=== PATIENT | female | born 1965 | race Caucasian/White ===

== ENCOUNTER 2018-04-22 15:57 | Outpatient (REF) | payer OTHER, SELFPAY ==
--- NOTE | 2018-04-22 14:30 | PAPFT_PTH ---
PATIENT: Kassandra Montalvo LOC: [facility] U#:[id number] AGE/SX: 52/F ROOM: RE04/22/[address]: Nereida Sharif MD, DC : 1965 BED: DIS: 04/22/2018 SPEC #: [id number] RECD: 04/22/18 18:19 STATUS: SOFY REQ #: [id number] ELVIA: 04/22/18 14:[address]: Nereida Sharif DEPT: [facility] [place] Cytology RECD BY: Judy Gannon Tissues: 1 - CX/ENDOCX FOR PAP SMEARS Procedures: PAP THIN PREP/UVM Screening HPV DNA PROBE Comments: [id number]
== END 2018-04-22 16:17 ==
LOC: LBN 15:57
PROVIDERS: PCP Family Medicine; Visit Provider Family Medicine
DX: Z12.4 Encounter for screening for malignant neoplasm of cervix (principal); Z11.51 Encounter for screening for human papillomavirus (HPV)
CPT/HCPCS: 88142; 87624

== ENCOUNTER 2018-05-01 00:25 | Outpatient (CLI) | payer OTHER, SELFPAY ==
--- NOTE | 2018-05-01 07:30 | DI.MAMMO_ITS ---
SYMPTOM/DIAGNOSIS: SCREENING, Z12.31 MAMMOGRAMS: Mammograms were interpreted according to the usual protocol including computer analysis with CAD system, tomosynthesis and C view imaging. Comparison is made with exams from 1369-5718. The breasts are composed of extremely dense fibroglandular tissue, breast density, Category D. On the tomographic images in the CC projection, there is a question of some architectural distortion seen in the posterior central tissue. No definite corresponding abnormality is seen on the MLO view. There is a stable area of nodularity seen inferiorly. The left breast shows some stable areas of nodularity. No suspicious calcifications are seen in either breast. IMPRESSION: Right breast, category 2, negative mammogram with benign findings. Left breast, category 0. Spot compression view with tomography as well as ultrasound is recommended for further evaluation of questionable area of architectural distortion. [facility]SA ASSESSMENT OF FINDINGS: Incomplete: Needs additional imaging evaluation. Category 0. Patient will receive a letter notifying them of these results. BI-RADS category D. The breasts are extremely dense, which lowers the sensitivity of mammography.
[2018-05-01 08:23] LABS: ALT 77 U/L (12-78); AST 37 U/L (15-37); Albumin 3.6 g/dL (3.4-5.0); Alkaline Phosphatase 113 U/L (46-116); Anion Gap 6.3 mmol/L (3-11); BUN 19 mg/dL (7-18); Bilirubin, Total 0.3 mg/dL (0.2-1.0); CO2 32.7 mmol/L (21.0-32.0); CREATININE 0.68 mg/dL (0.55-1.02); Calcium 9.2 mg/dL (8.5-10.1); Chloride 101 mmol/L (98-107); Cholesterol 244 mg/dL (50-200); Glucose 99 mg/dL (70-100); HDL Cholesterol 69 mg/dL (40-60); LDL CHOLESTEROL 155 mg/dL (<100); Potassium 4.4 mmol/L (3.5-5.1); Sodium 140 mmol/L (136-145); Total Protein 7.1 g/dL (6.4-8.2); Triglyceride 71 mg/dL (30-150)
== END 2018-05-01 00:45 ==
PROVIDERS: PCP Family Medicine; Visit Provider Family Medicine
DX: Z12.31 Encounter for screening mammogram for malignant neoplasm of breast (principal); R92.8 Other abnormal and inconclusive findings on diagnostic imaging of breast; I10 Essential (primary) hypertension; R51 Headache; Z00.00 Encounter for general adult medical examination without abnormal findings
CPT/HCPCS: 36415; 77063; 77067; 80053; 80061; 83721

== ENCOUNTER 2018-05-15 00:25 | Outpatient (CLI) | payer OTHER, SELFPAY ==
--- NOTE | 2018-05-15 14:52 | DI.COMBO_ITS ---
SYMPTOMS/DIAGNOSIS: F/U ABNORMAL MAMMO, ? ARCHITECTURAL DISTORTION ADDITIONAL VIEWS OF THE LEFT BREAST AND A LEFT BREAST ULTRASOUND: Additional views of the left breast fail to show a persistent discrete mass. Left breast ultrasound was performed. The upper outer and lower quadrants were evaluated sonographically. No suspicious cystic or solid masses are seen. There are several cysts scattered throughout the left breast, the largest measures 0.9 x 1.1 x 0.7 cm. No solid masses are seen. IMPRESSION: No definite evidence for malignancy. A six-month follow-up left breast mammogram is requested for reevaluation. Category 3. Breast density D. The findings were discussed with the patient on the date of the examination. [facility] ASSESSMENT OF FINDINGS: Probably benign. Six month follow-up recommended. Category 3. Patient will receive a letter notifying them of these results. BI-RADS category D. The breasts are extremely dense, which lowers the sensitivity of mammography.
== END 2018-05-15 00:45 ==
PROVIDERS: PCP Family Medicine; Visit Provider Family Medicine
DX: Z12.31 Encounter for screening mammogram for malignant neoplasm of breast (principal); R92.8 Other abnormal and inconclusive findings on diagnostic imaging of breast; N60.12 Diffuse cystic mastopathy of left breast
CPT/HCPCS: 76642; 77063; 77067

== ENCOUNTER 2018-07-22 06:08 | Day surgery (SDC) | payer OTHER, SELFPAY ==
[2018-07-22 06:20] VITALS: BP 121/73; PULSE 77; RESP 16; TEMP 35.1; O2SAT 100
--- NOTE | 2018-07-22 06:33 | HPE_ITS ---
Date of service: 07/22/18 Time of Service: 07:30 Assessment and Plan (1) Encounter for screening colonoscopy: Current visit: No Status: Acute P\\ Colonoscopy under sedation The patient is here for Colonoscopy pre-op. Her last screening was over 20 years ago and was unremarkable. She has no family history of colon cancer. She has bowel habit changes to include intermittent, bright red blood with BM's. No external hemorrhoids noted on exam. -Discussed colonoscopy bowel prep as well as the procedure. Discussed possible complications of the procedure to include bleeding, pain, perforation, missed s mall lesion/polyp, sore throat, aspiration and adverse reaction to the medications. Questions were answered to patient?s satisfaction. No guarantees were implied or given. History of Present Illness Chief Complaint: Colon Cancer Screening Narrative: 52 y/o female presents for colonoscopy screening pre-op. Her last screening was over 20 years ago, which was unremarkable at that time. She denies a family history of colon cancer. She has noted changes in her bowel habits to include intermittent, bright red blood in her stool and on the toilet paper. She also describes lower abdominal pain after urination, which has been present for many years and was why she had a colonoscopy 20 years ago. Denies black tarry stools, diarrhea or constipation. She denies constitutional symptoms. Denies use of marijuana or any other recreational or illegal drugs. She denies chest pain, palpitations, dyspnea or dyspnea with exertion. She denies prior history or family history of adverse reactions or complications with anesthesia. There have been no changes in her health since she was seen in the office at the end of June. 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 Sister Depression Sister IBS (irritable bowel syndrome) Brother Essential hypertension Hyperlipidemia Maternal Grandfather Heart disease Paternal Grandfather No problems noted. Maternal Grandmother Leukemia Paternal Grandmother Stomach cancer MATERNAL AUNT Personal history of malignant neoplasm Sister Diabetes Essential hypertension Brother Hyperlipidemia Essential hypertension Maternal Uncle Personal history of malignant neoplasm Maternal Aunt Leukemia Maternal Aunt Lupus Breast cancer Social History highest education level completed: high school graduate frequency: 5-6 times per week duration: 30-45 minutes/day Smoking and Tabacco status: Never alcohol intake: never substance use type: does not use tl/synagogue: [employer] special tl needs: No Meds Home Medications Medication Instructions Recorded Confirmed Type Caltrate-600 With Vit D Tab 2 tab PO DAILY 12/03/12 07/22/18 History ibuprofen [Motrin Ib] 400 mg PO PRN tab-cap 12/03/12 07/22/18 History jpkzt-finiv-2-zac-srq-pnclag 350 mg PO DAILY 03/07/16 07/22/18 History [Krill Oil 300 Mg Softgel] bpfswqukxr-dxgqhjh-vydyvibm 50 1 cap PO DAILY PRN #30 cap 05/15/18 07/22/18 Rx mg-325 mg-40 mg capsule hydrochlorothiazide 25 mg tablet 25 mg PO DAILY PRN #90 tab 05/15/18 07/22/18 Rx bisacodyl 5 mg tablet,delayed 5 mg PO ONCE #4 tab 06/21/18 07/22/18 Rx release polyethylene glycol 3350 17 255 g PO ONCE #255 gm 06/21/18 07/22/18 Rx gram/dose oral powder Allergies Allergy/AdvReac Type Severity Reaction Status Date / Time No Known Allergies Allergy Verified 07/22/18 06:05 Exam Resp Effort & Inspection: abnormal respiratory effort Auscultation: not clear to auscultation bilaterally Cardio Rate: regular rate Rhythm: regular rhythm Heart Sounds: no gallops, no murmurs and no rubs Results Last Vital Signs Temp 95.2 F L 07/22/18 06:20 Pulse 77 07/22/18 06:20 Resp 16 07/22/18 06:20 BP 121/73 07/22/18 06:20 Pulse Ox 100 07/22/18 06:20
--- NOTE | 2018-07-22 06:38 | COLE_ITS ---
Date of service: 07/22/18 Time of Service: 07:30 Colonoscopy Report Date of procedure: 07/22/18 Pre-op diagnosis general: Colon Cancer Screening Post-op diagnosis procedure note: other (cecal polyp) Procedure: Colonoscopy with polypectomy by cold forceps Surgeon: Indira Hahn Anesthesia proc note operative: MAC (Daren Olvera, CHEMICAL PROCESSING SUPERVISOR / ASA 2) Estimated blood loss (mL): 3 Pathology: other (cecal polyp) Complications: None Disposition: same day Indications: Mrs. Cam Blas is a 52 year old female who was seen in the office for a screening colonoscopy. She had a colonoscopy 20 years ago that was normal. Risks, benefits and complications have been reviewed. Complications include but are not limited to bleeding, pain, perforation, missed small lesion/polyp, sore throat, aspiration and adverse reaction to the medications. Questions were entertained and answered to their satisfaction and they wished to proceed. No guarantees were given or implied. Prep: Miralax/Dulcolax Procedure Start Time: 07:54 Procedure End Time: 08:09 Retraction Time: 11 minutes Findings: One polyp in the cecum Procedure Description: After informed consent was obtained the patient was taken to the procedure room and placed in a left decubitous position. Monitors were applied and a time out was done. The patients name, date of , procedure, allergies to medications and metal in their body was reviewed. The patient was then sedated. Once sedated and comfortable a rectal exam was done. External exam was normal. Internal exam revealed a normal sphincter tone and no palpable masses. The scope was then introduced and retro-flexed. No internal hemorrhoids were identified. The scope was then advanced to the cecum without difficulty. The TI and appendiceal orifice were identified. The prep was good. The scope was then slowly retracted over 11 minutes back into the rectum. Polyps were removed in the cecum. The scope was removed and the patient was woken up and taken back to Same day surgery in stable condition. The patient tolerated the procedure well and there were no immediate complications. Follow up: The patient should follow up in 3-5 years unless they develop changes in bowel habits or other new gastrointestinal complaints.
--- NOTE | 2018-07-22 06:38 | W.PM.DSUDISC ---
Discharge Plan Disposition Patient Disposition: HOME Condition: Good Discharge Details Reason For Visit: Colon cancer Screening Attending Provider: Indira Hahn Primary Care Provider: Nereida Sharif Home Meds and New Rx's Prescriptions: Continued ibuprofen [Motrin IB] 200 MG tablet 400 mg PO PRN RF: 0 CALTRATE-600 WITH VIT D TAB 1 EACH tablet 2 tab PO DAILY RF: 0 szjch-ucffs-4-ome-xbb-xvkkqh [krill oil] 1 EACH capsule 350 mg PO DAILY RF: 0 rdbiyvlcuh-lqqjgzg-bxakvwtb 50-325-40 mg capsule 1 cap PO DAILY PRN (Reason: pain) Qty: 30 RF: 0 hydrochlorothiazide 25 mg tablet 25 mg PO DAILY PRN (Reason: blood pressure) Qty: 90 RF: 4 Discontinued bisacodyl [Dulcolax (bisacodyl)] 5 mg tablet,delayed release (DR/EC) 5 mg PO ONCE Qty: 4 RF: 0 polyethylene glycol 3350 17 gram/dose powder 255 g PO ONCE Qty: 255 RF: 0 Discharge Instructions Instructions: Colonoscopy (DC), Colorectal Polyps (DC) Additional Instructions: Findings: One polyp Follow up:3-5 years depending on final pathology Please call if you develop: fevers >101.5 Nausea or Vomiting Abdominal pain that is not transient DAY SURGERY UNIT POST COLONOSCOPY INSTRUCTIONS 1. Because there will be medication in your system for the next 24 hours, you may feel a little sleepy. Your coordination will be affected. Therefore: a. Do not drive or operate dangerous equipment for 24 hours. b. Do not drink alcohol beverages for 24 hours (not even beer). c. Plan to go home and rest for the day. 2. Generally there are no restrictions on your activity after a day or so has gone by, but you may feel a bit fatigued for a few days. 3 After you arrive home you may have a light meal and return to a normal diet as you can tolerate it without feeling sick to your stomach. 4. After surgery, you may feel pain or discomfort. This should be only transient, but if it persists please contact your doctor. 5. If there are any questions regarding the findings of your procedure, please feel free to contact your doctor. 6. If you are unable to contact your doctor with a problem, contact the hospital at [phone]. 7. Continue all your regular medications unless directed otherwise. I understand the above instructions and have no questions. Signature of Patient or Responsible Adult Escort Date/Time Name of Responsible Adult Escort Signature of Nurse Date/Time Activity:: Activity as Tolerated Diet:: As Tolerated Discharge Orders Discharge Orders: Discharge Order (Routine); Ordered 07/22/18 Ordered By: Indira Hahn DS: Diagnosis Discharge Diagnosis (1) Encounter for screening colonoscopy: Status: Acute (2) Colorectal polyp detected on colonoscopy: Status: Acute
[2018-07-22] MEDS: Lactated Ringers 1,000 ML 80 ML IV (07:20)
--- NOTE | 2018-07-22 07:59 | BOWEL_PTH ---
PATIENT: Kassandra Montalvo LOC: [facility] U#:[id number] AGE/SX: 52/F ROOM: RE07/22/[address]: Indira Hahn MD : 1965 BED: DIS: 07/22/2018 SPEC #: [id number] RECD: 07/22/18 11:55 STATUS: SOFY REQ #: [id number] ELVIA: 07/22/18 07:[address]: Indira Hahn DEPT: Surgical Specimen RECD BY: Judy Gannon ENTERED: 07/22/18 11:55 SP TYPE: Bowel OTHR DR: Nereida Shairf MD, DC Tissues: 1 - BIOPSY BOWEL Procedures: GROSS AND MICRO LEVEL 4 Comments: [id number]
[2018-07-22 08:39] VITALS: BP 116/47; PULSE 71; RESP 16; TEMP 35.2; O2SAT 100
[2018-07-22 08:49] VITALS: BP 117/77; PULSE 64; RESP 16; O2SAT 100
== END 2018-07-22 09:15 | disposition home or self-care (01) ==
PROVIDERS: PCP Family Medicine; Visit Provider Surgery
PROC: 0DJD8ZZ Inspection of Lower Intestinal Tract, Via Natural or Artificial Opening Endoscopic (ICD-10-PCS; CPT 45378; principal; 2018-07-22 07:30)
DX: Z12.11 Encounter for screening for malignant neoplasm of colon (principal); D12.0 Benign neoplasm of cecum; I10 Essential (primary) hypertension
CPT/HCPCS: 45380; 88305; NC

== ENCOUNTER 2018-11-22 01:12 | Outpatient (CLI) | payer OTHER, SELFPAY ==
--- NOTE | 2018-11-22 13:11 | DI.COMBO_ITS ---
SYMPTOM/DIAGNOSIS: 6 MO F/U, DIAGNOSTIC, R92.9,Z09 LEFT MAMMOGRAM AND LEFT BREAST ULTRASOUND: Mammograms were interpreted according to the usual protocol including computer analysis with CAD system, tomosynthesis and C view imaging. The normal protocol views along with spot compression views in CC and MLO projections were performed. Comparison is made with 05/01 and 05/21/18 and older exams from 2009 and 2012. The breasts are composed of extremely dense fibroglandular tissue, breast density, category D. There is again noted to be an area of architectural distortion in the mid breast tissue slightly above and lateral to the level of the nipple. It persists on spot compression views with tomography. It measures roughly 13mm in diameter. There are no associated microcalcifications. Left breast ultrasound shows a question of an irregular area of low echogenicity measuring 10 x 7 x 6cm in the 12-1 o'clock position 1 cm. from the nipple which could correspond to the mammographic abnormality. Several cysts are incidentally noted. IMPRESSION: Category 4, mammogram and ultrasound findings are suspicious for malignancy. Further evaluation with MRI or biopsy could be considered. The findings were discussed with the patient and communicated to Dr. Robles of [facility]. [facility] ASSESSMENT OF FINDINGS: Suspicious. Biopsy should be considered. Category 4. Patient will receive a letter notifying them of these results. BI-RADS category 4. Breast Density Category D: The breasts are extremely dense, which lowers the sensitivity of mammography.
== END 2018-11-22 01:32 ==
PROVIDERS: PCP Family Medicine; Visit Provider Family Medicine
DX: Z13.21 Encounter for screening for nutritional disorder (principal); R92.8 Other abnormal and inconclusive findings on diagnostic imaging of breast; N63.21 Unspecified lump in the left breast, upper outer quadrant; N60.12 Diffuse cystic mastopathy of left breast
CPT/HCPCS: 76642; 77061; 77065; G0279

== ENCOUNTER 2019-01-24 07:13 | Emergency (ER) | payer OTHER, SELFPAY ==
[2019-01-24 07:19] VITALS: BP 120/84; PULSE 95; RESP 16; TEMP 37; O2SAT 100
--- NOTE | 2019-01-24 07:53 | ED.GENADUL_ITS ---
Discharge Plan Disposition Patient Disposition: HOME Condition: Fair Discharge Details Chief Complaint: Orthopedic Clinical Impression: Lisfranc dislocation Primary Care Provider: Nereida Sharif ED Provider: Sandy Lu Home Meds and New Rx's Prescriptions: Continued ibuprofen [Motrin IB] 200 MG tablet 400 mg PO PRN RF: 0 CALTRATE-600 WITH VIT D TAB 1 EACH tablet 2 tab PO DAILY RF: 0 shjpq-ksjxd-8-xwg-qxh-qwomzo [krill oil] 1 EACH capsule 350 mg PO DAILY RF: 0 kdsssxtoow-vqdhugy-soqxbprm 50-325-40 mg capsule 1 cap PO DAILY PRN (Reason: pain) Qty: 30 RF: 0 hydrochlorothiazide 25 mg tablet 25 mg PO DAILY PRN (Reason: blood pressure) Qty: 90 RF: 4 Discharge Instructions Instructions: Foot Fracture in Adults (ED) Additional Instructions: Encourage rest, ice, elevation. Tylenol and/or Ibuprofen as needed for discomfort. Please continue with bot and nonweightbearing on crutches until evaluated by orthopedics. Please call orthopedics for reevaluation, number listed below. If you develop new/worsening symptoms please seek care urgently once again. Referrals: Lionel Contreras MD [ [facility] STAFF PHYSICIAN] - Medical Decision Making Patient is a 53 year old female presenting with c/c of left foot pain. reprots that yesterday she was getting out of a golf cart, cart had not come to a complete stop, when she landed hard on the foot and suffered a rotational event. Since then she has had pain, swelling and eccymosis to the dorsal midfoot. No other injury at the time of the incident. Vascular exam normal, good capillary refill. Pain with palpation over the midfoot, otherwise exam is benign. No pain over the proximal fibula, no pain with palpation of the ankle or Achilles, no pain with palpation of the proximal 5th metatarsal. Concerned for Lisfranc injury, will obtain weighted views. Patient took NSAID prior to arrival, will augment with Tylenol. She is elevating and icing. Consulted with radiologist who recommended imaging of the contralateral foot for comparison and the gap between inflicted joint is there is concern for possible mild displacement and Lisfranc injury. Spoke with radiologist, they advised that there is widening of the tarsometetarsal joint. Advised patient will need close f/u and likely MRI. Discussed with patient. She was fitted with boot and given crutches. She has upcoming surgery on 01/31/19 for a lumpectomy of the left breast. We discussed that she may not be able to use crutches in the postoperative period. Disucssed knee walker vs. walker, she states that she has access to these and prefers to have only crutches at this time. Will discuss her injury with her surgeon. Yuli BETTS. She will call orthopedics to schedule follow up appointment. Discussed concerns associated wtih Lisfranc injury.All of her questions and cocnerns were addressed, she is in agreement wiht this plan. HPI General Mode of arrival: ambulatory . Date/Time Provider Initiated Documentation: 01/24/19 07:26 . Limitations to Documentation: no limitations . Information obtained by: patient, family (accompanied by ) and RN notes reviewed . History of Present Illness 53 year old F presents to the emergency department with the chief complaint of left foot pain, described as moderate, Quality is described as aching, and is localized to the left and lower extremity. Patient reports no radiation. Patient started experiencing this day(s) (1) and it has been constant. Immobilization improves symptom(s), Movement worsens symptoms (weight bearing) . Patient notes no other symptoms.. Patient did receive the following treatments prior to arrival, NSAID Related Data Home Medications Medication Instructions Recorded Confirmed Caltrate-600 With Vit D Tab 2 tab PO DAILY 12/03/12 10/24/18 ibuprofen [Motrin IB] 400 mg PO PRN tab-cap 12/03/12 10/24/18 vhdzo-uhtmg-6-qlb-cdc-dpovzy 350 mg PO DAILY 03/07/16 10/24/18 [krill oil] xhdzxjbglb-ndyxews-daerhlgc 50 1 cap PO DAILY PRN #30 cap 05/15/18 10/24/18 mg-325 mg-40 mg capsule hydrochlorothiazide 25 mg tablet 25 mg PO DAILY PRN #90 tab 05/15/18 10/24/18 Previous Rx's Medication Instructions Recorded xckvfebxaq-mvuguqc-mytvmzmh 50 1 cap PO DAILY PRN #30 cap 05/15/18 mg-325 mg-40 mg capsule hydrochlorothiazide 25 mg tablet 25 mg PO DAILY PRN #90 tab 05/15/18 Allergies Allergy/AdvReac Type Severity Reaction Status Date / Time No Known Allergies Allergy Verified 10/24/18 08:22 General Stated Complaint: Orthopedic ISABEL: 4 Review of Systems Constitutional Reports as per HPI, Denies chills, Denies fever(s), Denies headache(s) and Denies weakness ENT Denies headache(s) Cardiovascular Reports as per HPI Respiratory Reports as per HPI and Denies cough Musculoskeletal Reports as per HPI and Denies tingling Integumentary/Breasts Reports as per HPI, Denies rash and Denies wounds Neurologic Reports as per HPI, Denies headache(s), Denies tingling, Denies paresthesias and Denies weakness [facility] Medical History Breast lump (Resolved 05/03/06) Colorectal polyp detected on colonoscopy (Chronic ~07/22/18) Costochondritis (Chronic 03/29/10) Hypertension (Chronic 12/22/13) Low back pain (Chronic) Neck pain (Chronic) Physical exam, annual (Acute 04/10/17) 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 Sister Depression Sister IBS (irritable bowel syndrome) Brother Essential hypertension Hyperlipidemia Maternal Grandfather Heart disease Paternal Grandfather No problems noted. Maternal Grandmother Leukemia Paternal Grandmother Stomach cancer MATERNAL AUNT Personal history of malignant neoplasm Sister Diabetes Essential hypertension Brother Hyperlipidemia Essential hypertension Maternal Uncle Personal history of malignant neoplasm Maternal Aunt Leukemia Maternal Aunt Lupus Breast cancer Social History Smoking/Tobacco Use Status: Never Alcohol Intake: never Drug use: Never Substance use type: does not use Duration: 30-45 minutes/day Frequency: 5-6 times per week Ana/Evangelical: Sikhism Special ana needs: No Do you feel safe at home: Yes Do you feel safe in your relationship?: Yes Exam Const General: cooperative, healthy appearing, comfortable, no acute distress, well developed and well groomed Nutritional Appearance: average body habitus and well nourished Orientation: alert and awake Resp Effort & Inspection: normal respiratory effort, able to speak in complete sentences and no respiratory distress Cardio Rate: regular rate Rhythm: regular rhythm Skin General skin exam: ecchymosis (dorsal aspect left foot) Neuro General: alert and awake Cognition: normal cognition Speech: speech normal Gait: antalgic Motor: muscle tone normal throughout Sensory Exam: no sensory deficits noted Extrem Left lower extremity: full ROM, normal capillary refill, knee Details: normal to inspection (no pain over the proximal fibula), lower leg Details: normal to inspection and no edema; no tenderness, no localized swelling and no palpable cords, ankle Details: normal to inspection, no edema and normal ROM; no tenderness, no swelling, no warmth and achilles tendon exam normal and foot Details: normal capillary refill, tenderness Location: of the dorsal foot (swelling and ecchymosis) Location: proximally and of the plantar foot (normal), ecchymosis, vascular exam Details: dorsalis pedis pulse present and normal capillary refill and motor-sensory exam Details: light-touch normal; no unusual warmth; abnormal to inspection Psych Appearance: grossly normal and well kempt Mental Status: mental status grossly normal Speech and Movement: speech and movement normal Course Vital Signs Temperature 37 C 01/24/19 07:19 Pulse 95 H 01/24/19 07:19 Respiratory Rate 16 01/24/19 07:19 Blood Pressure 120/84 01/24/19 07:19 Pulse Oximetry 100 01/24/19 07:19 Temperature 37 C 01/24/19 07:19 Temperature Source Tympanic 01/24/19 07:19 Pulse 95 H 01/24/19 07:19 Respiratory Rate 16 01/24/19 07:19 Respiratory Effort Non-Labored 01/24/19 07:38 Blood Pressure 120/84 01/24/19 07:19 Blood Pressure Position Sitting 01/24/19 07:19 Pulse Oximetry 100 01/24/19 07:19 Oxygen Delivery Method Room Air 01/24/19 07:19 Oxygen Flow Rate 0 01/24/19 07:19
--- NOTE | 2019-01-24 08:08 | NUR.NOTE ---
Nursing Note:Pt went to x-ray, Via [facility]
[2019-01-24] MEDS: Acetaminophen 325 MG TAB 650 MG PO (08:09)
--- NOTE | 2019-01-24 08:09 | NUR.NOTE ---
pt to xray Nursing Note:
--- NOTE | 2019-01-24 08:20 | DI.RAD_ITS ---
SYMPTOM/DIAGNOSIS: RT WT BEARING VIEW FOR COMPARISON, LT MID FOOT INJURY, PAIN LEFT FOOT: Three views. There is widening of the distance between the bases of the first and second metatarsals. No fracture is appreciated. The bones and joints are otherwise unremarkable. There is soft tissue swelling about the mid foot. No radiopaque foreign bodies are seen in the soft tissues. IMPRESSION: 1. Widening seen involving the bases of the first and second metatarsals. Lisfranc injury should be considered. MRI should be considered for further evaluation. 2. Generalized soft tissue swelling of the left foot. LIMITED RIGHT FOOT: A single AP view of the right foot was obtained. No bone or joint abnormality is seen on this limited examination. a
== END 2019-01-24 09:42 | disposition home or self-care (01) ==
PROVIDERS: Emergency Provider Physician Assistant; PCP Family Medicine
DX: S93.325A Dislocation of tarsometatarsal joint of left foot, initial encounter (principal); X50.9XXA Other and unspecified overexertion or strenuous movements or postures, initial encounter
CPT/HCPCS: 99284; 73620; 73630; 99282; E0114; L4361

== ENCOUNTER 2019-12-16 01:34 | Outpatient (CLI) | payer OTHER, SELFPAY ==
--- NOTE | 2019-12-16 15:00 | DI.US_ITS ---
EXAM: US SOFT TISS ABD WALL/LOW BACK CLINICAL HISTORY: LUQ MASS R19.02 LUQ PAIN TECHNIQUE: Ultrasound performed using standard protocol. COMPARISON: US US breast LT limited from 11/22/2018 FINDINGS: Ultrasound was performed of the superficial soft tissue in the left lower thoracic/upper abdominal re gion to evaluate questionable palpable abnormality. No mass or cyst identified. IMPRESSION: Negative soft tissue ultrasound. DATA REPOSITORY:
== END 2019-12-16 01:54 ==
PROVIDERS: PCP Family Medicine; Visit Provider Family Medicine
DX: R19.02 Left upper quadrant abdominal swelling, mass and lump (principal)
CPT/HCPCS: 76705

== ENCOUNTER 2020-09-03 04:00 | Outpatient (CLI) | payer OTHER, SELFPAY ==
--- NOTE | 2020-09-03 06:45 | DI.RAD_ITS ---
EXAM: XR STERNUM CLINICAL HISTORY: lesion noted on [facility] mri of breast ? hemangioma,STERNAL MASS,M89.8X8 TECHNIQUE: COMPARISON: No exams were available for comparison FINDINGS: Three views of the sternum were obtained. There is fairly poor delineation of the cortex of the ster num inferiorly, no definite mass can be appreciated radiographically, however radiographs are insensi tive for detection of sternal lesions and in the presence of a previously described questionable lesi on on outside MRI, I would request that a sternal CT be performed to evaluate this region. IMPRESSION: RADIATION DOSE DELIVERED: Total DLP
== END 2020-09-03 04:20 ==
PROVIDERS: PCP Family Medicine; Visit Provider Family Medicine
DX: R93.89 Abnormal findings on diagnostic imaging of other specified body structures (principal)
CPT/HCPCS: 71120

== ENCOUNTER 2023-09-11 09:58 | Outpatient (REF) | payer BC, SELFPAY ==
--- NOTE | 2023-09-11 08:30 | PAPFT_PTH ---
PATIENT: Kassandra Montalvo LOC: [facility]#:[id number] AGE/SX: 57/F ROOM: RE09/11/[address]: Nereida Sharif MD, DC : 1965 BED: DIS: 09/11/2023 SPEC #: [id number] RECD: 09/11/23 13:01 STATUS: SOFY PRESCOTT #: [id number] ELVIA: 09/11/23 08:[address]: Nereida Sharif DEPT: [facility] Cytology RECD BY: Judy Gannon Tissues: 1 - CX/ENDOCX FOR PAP SMEARS Procedures: PAP THIN PREP/UVM Screening HPV DNA PROBE Comments: [id number]
== END 2023-09-11 09:59 | disposition home or self-care (01) ==
LOC: LBN 09:58
PROVIDERS: PCP Family Medicine; Referring Provider Family Medicine; Visit Provider Family Medicine
DX: Z00.00 Encounter for general adult medical examination without abnormal findings (principal); R07.81 Pleurodynia
CPT/HCPCS: 88142; 87624

== ENCOUNTER → 2023-09-12 05:18 | Outpatient (CLI) | payer BC, SELFPAY ==
--- NOTE | 2023-09-12 08:15 | DI.RAD_ITS ---
Exam(s) XR RIBS LT W PA LAT CHEST CLINICAL HISTORY left anterior rib 8-9 pain,PLEURODYNIA,R07.81. COMPARISON: CT CT CHEST W from 10/04/2020 TECHNIQUE:: PA and lateral views of the chest and four views of the left ribs were performed. FINDINGS: LUNGS: Clear. No pleural abnormality seen. HEART: Normal. MEDIASTINUM: Normal. BONES: No displaced rib fracture is seen. No compression fractures are seen in the thoracic spine. No bony destructive lesion is seen. OTHER FINDINGS: None. IMPRESSION: 1. Unremarkable radiographic appearance of the left ribs. 2. No acute pulmonary findings.
== END ==
PROVIDERS: PCP Family Medicine; Visit Provider Family Medicine
DX: R07.81 Pleurodynia (principal)
CPT/HCPCS: 71046; 71100

== ENCOUNTER 2023-09-12 05:35 | Outpatient (CLI) | payer BC, SELFPAY ==
[2023-09-12 08:02] LABS: ALT 68 U/L (14-59); AST 32 U/L (15-37); Albumin 3.9 g/dL (3.4-5.0); Alkaline Phosphatase 134 U/L (46-116); Anion Gap 9.4 mmol/L (3-11); BUN 21 mg/dL (7-18); Bilirubin, Total 0.4 mg/dL (0.2-1.0); CO2 28.6 mmol/L (21.0-32.0); CREATININE 0.8 mg/dL (0.55-1.02); Calcium 9.4 mg/dL (8.5-10.1); Calculated LDL 195 mg/dL (<100); Chloride 104 mmol/L (98-107); Cholesterol 291 mg/dL (<200); Estimated GFR 86.96 (mL/min/1.73m2); Glucose 101 mg/dL (74-106); HDL Cholesterol 69 mg/dL (40-60); Sodium 142 mmol/L (136-145); TSH (W/Ref FT4) 3.15 uIU/mL (0.36-3.74); Triglyceride 139 mg/dL (<150)
== END 2023-09-12 05:36 | disposition home or self-care (01) ==
LOC: LBO 05:35
PROVIDERS: PCP Family Medicine; Visit Provider Family Medicine
DX: I10 Essential (primary) hypertension (principal); Z00.00 Encounter for general adult medical examination without abnormal findings; E03.9 Hypothyroidism, unspecified; E78.5 Hyperlipidemia, unspecified
CPT/HCPCS: 36415; 80053; 80061; 82172; 84443

== ENCOUNTER 2023-09-13 14:42 | Outpatient (CLI) | payer BC, SELFPAY ==
[2023-09-15 13:18] LABS: Apolipoprotein A1, S 185 mg/dL (>=140); Apolipoprotein B, S 134 mg/dL (See Comment); Apolipoprotein B/A 1 ratio 0.7 (See Comment)
== END 2023-09-13 14:43 | disposition home or self-care (01) ==
LOC: LBO 14:42
PROVIDERS: PCP Family Medicine; Visit Provider Family Medicine
DX: E78.5 Hyperlipidemia, unspecified (principal)
CPT/HCPCS: 36415; 82172

== ENCOUNTER 2023-09-26 09:10 | Outpatient (CLI) | payer BC, SELFPAY ==
[2023-09-26 10:04] LABS: ALT 87 U/L (14-59); AST 40 U/L (15-37); Albumin 3.7 g/dL (3.4-5.0); Alkaline Phosphatase 153 U/L (46-116); Anion Gap 9.5 mmol/L (3-11); BUN 28 mg/dL (7-18); Bilirubin, Total 0.3 mg/dL (0.2-1.0); CO2 31.5 mmol/L (21.0-32.0); CREATININE 0.7 mg/dL (0.55-1.02); Calcium 9.4 mg/dL (8.5-10.1); Chloride 100 mmol/L (98-107); Estimated GFR 102.07 (mL/min/1.73m2); Glucose 102 mg/dL (74-106); Potassium 3.5 mmol/L (3.5-5.1); Sodium 141 mmol/L (136-145); Total Protein 7.9 g/dL (6.4-8.2)
== END 2023-09-26 09:11 | disposition home or self-care (01) ==
LOC: LBO 09:11
PROVIDERS: PCP Family Medicine; Visit Provider Family Medicine
DX: I10 Essential (primary) hypertension (principal); R94.5 Abnormal results of liver function studies
CPT/HCPCS: 36415; 80053; 86704; 86709; 86803; 87340

== ENCOUNTER 2023-09-28 14:24 | Outpatient (CLI) | payer BC, SELFPAY ==
[2023-09-28 23:19] LABS: Hepatitis A Antibody IgM Negative (Negative); Hepatitis B Core Antibody Negative (Negative); Hepatitis B surface Ag Negative (Negative); Hepatitis C Ab w Rflx HCV PCR Negative (Negative)
== END 2023-09-28 14:25 | disposition home or self-care (01) ==
LOC: LBO 14:24
PROVIDERS: PCP Family Medicine; Visit Provider Family Medicine
DX: R94.5 Abnormal results of liver function studies (principal)
CPT/HCPCS: 36415; 86704; 86709; 86803; 87340

== ENCOUNTER 2023-10-04 13:52 | Outpatient (RCR) | payer BC, SELFPAY ==
--- NOTE | 2023-10-04 14:00 | HOLTER_ITS ---
APPROVED REPORT Conclusion This is a 48-hour Holter monitor Rhythm throughout was sinus. Average heart rate was 74. Maximum was 115 A total of 12 PVCs were seen There were 3 atrial premature beats There was no atrial fibrillation, no high-grade AV block, no pauses greater than 3 seconds Symptoms were reported which could not be reliably correlated to any dysrhythmia
== END 2023-11-02 23:59 | disposition home or self-care (01) ==
LOC: CARDOPNVT 13:52
PROVIDERS: PCP Family Medicine; Visit Provider Internal Medicine Cardiovascular Disease
DX: R00.2 Palpitations (principal); I49.3 Ventricular premature depolarization
CPT/HCPCS: 93225

== ENCOUNTER 2023-10-18 05:10 | Outpatient (CLI) | payer BC, SELFPAY ==
[2023-10-18 07:54] LABS: ALT 84 U/L (14-59); AST 43 U/L (15-37); Albumin 3.5 g/dL (3.4-5.0); Alkaline Phosphatase 142 U/L (46-116); Anion Gap 7.9 mmol/L (3-11); BUN 25 mg/dL (7-18); Bilirubin, Total 0.3 mg/dL (0.2-1.0); CO2 31.1 mmol/L (21.0-32.0); CREATININE 0.8 mg/dL (0.55-1.02); Calcium 9.1 mg/dL (8.5-10.1); Chloride 103 mmol/L (98-107); Estimated GFR 86.42 (mL/min/1.73m2); Glucose 101 mg/dL (74-106); Potassium 3.9 mmol/L (3.5-5.1); Sodium 142 mmol/L (136-145); Total Protein 7.6 g/dL (6.4-8.2)
== END 2023-10-18 05:11 | disposition home or self-care (01) ==
LOC: LBO 05:11
PROVIDERS: PCP Family Medicine; Visit Provider Family Medicine
DX: I10 Essential (primary) hypertension (principal); R94.5 Abnormal results of liver function studies
CPT/HCPCS: 36415; 80053

== ENCOUNTER → 2023-10-25 04:32 | Outpatient (CLI) | payer BC, SELFPAY ==
--- NOTE | 2023-10-25 07:30 | DI.US_ITS ---
APPROVED REPORT EXAM: Comprehensive 2D, Doppler, and color-flow Echocardiogram Patient Location: Out-Patient Rn Testing: Mary James RDCS (AE) Other Information Study Quality: Adequate Conclusion Normal left ventricular wall thickness and chamber size. Ejection fraction is 55%. Wall motion is n ormal Normal right ventricular size and function Both atria are normal in size There is no structural or hemodynamically significant valvular disease Estimated right ventricular systolic pressure is 19 mmHg Wall motion Left Ventricle The left ventricle is normal size. The left ventricular systolic function is normal. The left ventric ular ejection fraction is within the normal range. There is normal left ventricular wall thickness. T here is normal LV segmental wall motion. There is no ventricular septal defect visualized. LVEF is 55 %. Right Ventricle The right ventricle is normal size. The right ventricular systolic function is normal. Atria The left atrium size is normal. The right atrium size is normal. The interatrial septum is intact wit h no evidence for an atrial septal defect. Aortic Valve The aortic valve is normal in structure. Aortic valve is trileaflet. There is no aortic valvular sten osis. No aortic regurgitation is present. Mitral Valve The mitral valve is normal in structure. No evidence of mitral valve stenosis. Trace mitral regurgita tion. Tricuspid Valve The tricuspid valve is normal in structure. There is no tricuspid valve stenosis. Trace tricuspid reg urgitation. The RVSP is 18.7 mmHg. Pulmonic Valve The pulmonary valve is normal in structure. There is no pulmonic valvular stenosis. Trace pulmonic re gurgitation. Great Vessels The aortic root is normal in size. The ascending aorta is normal Aortic arch is normal in caliber. IV C is normal in size and collapses >50% with inspiration. Pericardium There is no pericardial effusion. 2D Dimensions IVSD d PLAX 0.89 cm F: 0.6-1.0 Ao Root d 2.90 cm F: 2.7 - 3.3 LVPW d PLAX 0.93 cm F: 0.6 - 1.0 Ao Asc Diam d 3.29 cm F: 2.3 - 3.1 LVID d PLAX 4.20 cm F: 3.8 - 5.2 LVDs 3.01 cm F: 2.2 - 3.5 LV EF Teichholz 55.3 % FS 28.46 % LV EDV (Teich) 78.7 mL LV ESV (Teich) 35.2 mL M-Mode TAPSE 1.46 cm (M/F) >1.7 Auto EF LV EDV A4C 92.7 mL LV EDV A2C 96.7 mL LV EDV BP 97.1 mL LV ESV A4C 44.5 mL LV ESV A2C 43.4 mL LV ESV BP 44.5 mL LVEF(%) A4C 52.0 % LVEF(%) A2C 55.1 % LVEF(%) BP 54.2 % LV SV A4C 48.2 ml LV SV A2C 53.2 ml LV SV BP 52.6 ml LV CO A4C 3.3 L/min LV CO A2C 3.7 L/min LV CO BP 3.5 L/min HR A4C 67.93 BPM HR A2C 68.84 BPM LV EDV Index (BP) LA Volume LA Length A4C 4.1 cm LA Length A2C 3.5 cm LA Area A4C s 13.01 cm2 LA Area A2C s 12.66 cm2 LA Vol A4C A-L 34.89 mL LA Vol A2C A-L 38.68 mL LA Vol Biplane A-L 39.7 mL LA Vol/BSA A4C A-L LA Vol/BSA A2C A-L LA Vol/BSA BP A-L 21.4 mL/m2 LA Vol A4C MOD 32.3 mL LA Vol A2C MOD 36.7 mL LA Vol BP MOD 37.2 mL RA Volume RA Area A4C 9.8 cm2 RA ESV A4C (A-L) 21.4mL RA Vol/BSA A4C A-L RA Length A4C 3.8 cm RA ESV A4C (MOD) 20.1mL LV Diastology MV E' medial 0.098 (>0.07 m/s) MV E Vmax 0.66 (0.4-1.3 m/s) MV E/E' MED 6.73 (<14) MV A Vmax 0.60 (0.4-1.3 m/s) MV E' lateral 0.133 (>0.1 m/s) E/A Ratio 1.1 MV E/E' LAT 4.93 (<14) MV E' Average 0.115 m/s MV E/E'(average) 5.69 Aortic Valve AoV Vmax 1.23 m/s LVOT Vmax 0.96 m/s AoV Peak Grad 6.0 mmHg LVOT Peak Grad 3.7 mmHg AoV Area (Vmax) 2.11 cm2 LVOT VTI 0.215 m AoV VTI 0.298 m LVOT Mean Grad 2.1 mmHg AoV Mean Santos. 0.91 m/s LVOT SV 57.83 mL AoV Mean Grad 3.7 mmHg LVOT Diam s 1.85 cm AoV Area (VTI) 1.94 cm2 Velocity Ratio 0.78 Mitral Valve MV DT 156 (160-240 msec) MV Vmax TIPS 0.76 m/s MV Mean Grad 1.2 (<2mmHg) MV VTI 0.178 m Pulmonary Valve PV Vmax 0.78 (0.5-1.5 m/s) RVOT Vmax 0.43 m/s PV Peak Grad 2.4 mmHg RVOT Peak Gr. 0.7 mmHg PV Mean Santos 0.60 m/s RVOT VTI 0.113 m PV Mean Grad 1.5 mmHg RVOT Mean Gr. 0.5 mmHg Tricuspid Valve RA Pressure 3.00 mmHg TR Vmax 1.98 m/s TV S' 0.11 m/s TR Peak Grad 15.6 mmHg RVSP (TR) 18.7 mmHg
--- NOTE | 2023-10-25 08:32 | DI.RAD_ITS ---
Exam(s) XR ANKLE LT COMPLETE EXAM: XR ANKLE LT COMPLETE CLINICAL HISTORY: left ankle pain,M25.572. TECHNIQUE: 2D digital imaging was performed. COMPARISON: No exams were available for comparison FINDINGS: 3 views No evidence of fracture nor widening of the ankle mortise. Talar dome unremarkable. Bone density no rmal. No osseous lesions nor degenerative changes. No evidence of osseous tarsal coalition IMPRESSION: No significant osseous findings in the left ankle. DATA REPOSITORY: RADIATION DOSE DELIVERED:
== END ==
PROVIDERS: PCP Family Medicine; Visit Provider Family Medicine
DX: R06.02 Shortness of breath (principal); M25.572 Pain in left ankle and joints of left foot
CPT/HCPCS: 73610; 93306

== ENCOUNTER 2024-02-01 01:33 | Outpatient (CLI) | payer BC, SELFPAY ==
--- OUTSIDE RECORDS SUMMARY | 2024-02-01 01:35 | XMS_ITS | Encounter Summary ---
[place] [address] Care Team Providers Care Filters Assembler Name Role Phone Nereida Sharif MD Primary Care Provider [phone] Encounter Details Date Type Department Care Team (Latest Contact Info) Description 2023 Travel Social History Tobacco Use Types Packs/Day Years Used Date Smoking Tobacco: Never Smokeless Tobacco: Never Alcohol Use Standard Drinks/Week Comments No 0 (1 standard drink = 0.6 oz pur e alcohol) Sex and Gender Information Value Date Recorded Sex Assigned at Female 07/15/2020 10:54 AM EST Gender Identity Female 12/04/2018 5:53 PM EDT Sexual Orientation Straight 07/15/2020 10 :54 AM EST documented as of this encounter Plan of Treatment Upcoming Encounters Date Type Department Care Team (Late st Contact Info) Description 02/11/2024 2:15 PM EDT Office Visit [place] [phone] Julee Ibarra APRN [facility] [place] [address] 02/15/2024 10:45 AM EDT Office [place] [phone] Jian Carmichael MD [facility] [place] [address] 03/12/2024 8:00 AM EDT Appointment Mammography/[place] [address] Ting George [facility] [place] [address] 03/12/2024 9:00 AM EDT Office Visit [place] [phone] Ting George [facility] [place] [address] documented as of this encounter Visit Diagnoses Not on filedocumented in this encounter Care Teams Filters Assembler Relationship Specialty Start Date End Date Nereida Sharif MD [address] [place] [address] PCP - General 04/26/10 documented as of this encounter
--- OUTSIDE RECORDS SUMMARY | 2024-02-01 01:35 | XMS_ITS | Encounter Summary ---
Author Organization [facility] [place] [address] Care Team Providers Care Business Management Professor Name Role Phone Nereida Sharif MD Primary Care Provider [phone] Reason for Visit * Diagnostic Test (Routine) - Closed Specialty Diagnoses / Procedures Referred By Shellie t Referred To Contact Diagnoses Edema of lower extremity Procedures Duplex for DVT, Leg, Unilat Jessica Martin APRN [facility] [place] [address] [facility] Vascular Lab [address] [address] Referral ID Status Reason Start Date Expiration Date V isits Requested Visits Authorized [id number] Closed Specialty Service Requested 10/03/2023 10/02/2024 1 1 Encounter Details Date Type Department Care Team (Late st Contact Info) Description 2023 2:30 PM EDT Tech Visit [place] [phone] Dmitry Deshpande [place] Edema of lower extremity Social History Tobacco Use Types Packs/Day Years [...] 2:15 PM EDT Office Visit Gastroenterology at [place] [phone] Julee Ibarra [facility] [place] [address] 02/15/2024 10:45 AM EDT Office Visit General Surgery at [place] [phone] Jian Carmichael MD [facility] [place] [address] 03/12/2024 8:00 AM EDT Appointment Mammography/[place] [phone] Ting George, [facility] [place] [address] 03/12/2024 9:00 AM EDT Office Visit General Surgery at [place] [phone] Ting George [facility] [place] [address] documented as of this encounter Procedures Procedure Name Priority Date/Time Associated Diagnosis Comments DUPLEX FOR DVT, LEG, UNILAT Routine 2023 2:04 PM EDT Edema of lower extremity documented in this encounter Results * Duplex for DVT, Leg, Unilat (2023 2:04 PM EDT) VB Text Report Department: Vascular Surgery Lab Patient: [id number] (DEV SIERRA) CPT: [id number] Referring Physician: JESSICA MARTIN ?? Phone: Indications: L ankle edema. Negative DVT exam by OSH. Findings: LEFT: Patent common femoral vein and popliteal vein with spontaneous, respirophasic Doppler waveforms that respond normally to augmentation maneuvers. The common femoral vein, saphenofemoral junction, femoral vein through the thigh and popliteal vein are fully compressible. Patent posterior tibial and peroneal veins with no evidence of thrombus. Interpretation: LEFT: ??No evidence of lower extremity deep venous thrombosis. Comparison: ??No previous study in our vascular lab database for comparison. Electronically Signed by: NIURKA RICHEY on 2023-10-24 06:44:47 AM [facility] VB Text Report End of Report [facility] 2023 2:04 PM EDT Jessica Martin APRN [facility] documented in this encounter Visit Diagnoses Diagnosis Edema of lower extremity Edema documented in this encounter Care Teams Business Management Professor Relationship Specialty Start Date End Date Nereida Sharif MD [address] [place] [address] PCP - General 04/26/10 documented as of this encounter
--- OUTSIDE RECORDS SUMMARY | 2024-02-01 01:35 | XMS_ITS | Encounter Summary ---
Author Organization [place] [address] Care Team Providers Care Cuff Knitter Name Role Phone Nereida Sharif MD Primary Care Provider Reason for Referral * Consultation (Routine) - Authorized Specialty Diagnoses / Procedures Referred By Contac t Referred To Contact General Surgery Diagnoses Calculus of gallbladder without cholecystitis without obstruction Abnormal results of liver function studies GALLSTONES AND ELEVATED LFT Nereida Sharif MD [address] [place] [address] [facility] Gen Surgery [address] [place] [phone] Referral ID Status Reason Start Date Expiration Date Visits Requested Visits Authorized [id number] Authorized Consult, Test & Treat PCP Updated and/or Approved 10/04/2023 10/03/2024 6 6 Encounter Details Date Type Department Care Team (Late st Contact Info) Description 10/11/2023 Transcribe Orders eDH Incoming Referrals [phone] Nereida Sharif MD [address] [place], [place] [id number] Calculus of gallbladder without cholecystitis without obstruction; Abnormal results of liver function studies Social History Tobacco Use Types Packs/Day Years [...] 2:15 PM EDT Office [place] [address] Julee Ibarra [facility] [place] [address] 02/15/2024 10:45 AM EDT Office Visit General Surgery at [place] [phone] Jian Carmichael MD [facility] [place] [address] 03/12/2024 8:00 AM EDT Appointment Mammography[place] [phone] Ting George, [facility] [place] [address] 03/12/2024 9:00 AM EDT Office [place] [address] Ting George [facility] [place] [place] [address] Scheduled Referrals Name Type Priority Associated Diagnoses Orde r Schedule Referral to General Surgery Outpatient Referral Routine Calculus of gallbladder without cholecystitis without obstruction Abnormal results of liver function studies Ordered: 10/11/2023 documented as of this encounter Visit Diagnoses Diagnosis Calculus of gallbladder without cholecystitis without obstruction Calculus of gallbladder without mention of cholecystitis or obstruction Abnormal results of liver function studies Nonspecific abnormal results of liver function study documented in this encounter Care Teams Cuff Knitter Relationship Specialty Start Date End Date Nereida Sharif MD [address] [place] [address] PCP - General 04/26/10 documented as of this encounter
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
--- OUTSIDE RECORDS SUMMARY | 2024-02-01 01:35 | XMS_ITS | Encounter Summary ---
[place] [address] Care Team Providers Care Upsetting Machine Operator Name Role Phone Nereida Sharif MD Primary Care Provider [phone] Reason for Visit * Auth/Cert (Routine) Specialty Diagnoses / Procedures Referred By Contac t Referred To Contact Diagnoses Gallstones SYMPTOMATIC GALLSTONES Procedures PRO LAP, CHOLECYSTECTOMY/GRAPH LAPAROSCOPIC CHOLECYSTECTOMY WITH CHOLANGIOGRAM (WRVU 11.47) Jian Carmichael MD [facility] [place] [address] [facility] Referral ID Status Reason Start Date Expiration Date Visits Re quested Visits Authorized [id number] 1 1 Encounter Details Date Type Department Care Team (Late st Contact Info) Description 01/11/2024 3:57 PM EDT - 01/11/2024 7:30 PM EDT [place] [address] Jian Carmichael MD [facility] [place] [address] ULTRASOUND, INTRAOP, ABDOMINAL, SINGLE ORGAN (WRVU 0.59) Social History Tobacco Use Types Packs/Day Years Used Date Smoking Tobacco: Never Smokeless Tobacco: Never Alcohol Use Standard Drinks/Week Comments No 0 (1 standard drink = 0.6 oz pur e alcohol) [facility] Inpatient Questions Answer Date Recorded Does Anyone [...] EDT Temperature 36.5 ??C (97.7 ??F) 01/11/2024 6:51 PM ED T Respiratory Rate 12 01/11/2024 [...] Mercado MD - 01/11/2024 6:54 PM EDT [facility] Department of General Surgery Discharge Instructions [...] day, it is best to call the 4 General Surgery Clinic to speak with the Surgery nurses. The number is [phone]. - During the night or weekends call the [facility] packaging line operator at [phone] and ask to speak to the surgery resident manager zone for general surgery. Please note: Your surgeon may not be Volunteer Recruitment Coordinator, especially during the night or on weekends, so be ready to describe yourself and your surgery when you call. Follow up appointments: Future Appointments Date Time Provider Department Center 02/11/2024 2:15 PM Julee Ibarra APRN [facility] [place] 03/12/2024 8:00 AM [facility] DB [facility] ROOM 4 3 Mammo [facility] Rad 03/12/2024 9:00 AM Ting George APRN [facility] [place] [facility] [] Follow-up appointment with General Surgery has already been scheduled. Please call the clinic [phone] to confirm or reschedule. [x] A request for a follow-up appointment has been made and you should receive information via phone/mail in the next week. If you do not hear anything, please call the clinic at [phone] to confirm or reschedule. If you need a prior authorization, please call the General Surgery Clinic nurses [phone] for prior authorizations assistance documented in this [...] hx of biliary colic who presents to [facility] for laparoscopic cholecystectomy with intraoperative cholangiogram. S: [...] Carmichael MD - 01/11/2024 4:45 PM EDT [facility] Operative Note Patient Name: Kassandra Seirra : [id number] MR#: [id number] Case Date: 01/11/2024 Surgeon: Surgeons and Role: [...] Gallbladder SURGICAL PATHOLOGY Jian Carmichael MD 01/11/2024 1824 Drains: none Surgical Closure: Primary Closure - [...] performed. A Ve[facility] with negative saline-drop test. The abdomen was [...] 2:15 PM EDT Office Visit Gastroenterology at [place] [phone] Julee Ibarra [facility] [place] [address] 02/15/2024 10:45 AM EDT Office Visit General Surgery at [place] [phone] Jian Carmichael MD [facility] [place] [address] 03/12/2024 8:00 AM EDT Appointment Mammography/[place] [phone] Ting George [facility] [place] [place] [address] 03/12/2024 9:00 AM EDT Office Visit General Surgery at [place] [phone] Ting George [facility] [place] [address] documented as of this encounter Procedures Procedure Name Priority Date/Time Associated Diagnosis Comments SURGICAL PATHOLOGY Routine 01/11/2024 6: 24 PM EDT Gall stones, common bile duct Lap, Cholecystectomy (27815) Yes 01/11/2024 4:12 PM EDT SYMPTOMATIC GALLSTONES PRG US Abdomen Real Time, Limited (13164) Yes 01/11/2024 4:12 PM EDT SYMPTOMATIC GALLSTONES POC, GLUCOSE Routine 01/11/2024 1:49 PM EDT documented in this encounter Results * Surgical Pathology (01/11/2024 6:24 PM EDT) Case Report Surgical Pathology Report ? Case: [id number] ? Authorizing Provider: ??Jian Carmichael MD Collected: ? 01/11/2024 1824 ? Ordering Location: ? Main Operating Room [place] ?? Received: ?01/11/20242034 ? [facility] ? Hospital ? Pathologist: ? Samira Mendez MD ? Specimen: ?Gallbladder ? 01/16/2024 12:56 PM EDT [facility] Final Diagnosis A. Gallbladder, Gallbladder Excision: Chronic cholecystitis and cholelithiasis. 01/16/2024 12:56 PM EDT [facility] Clinical Information A. Gallbladder, Gallbladder *Other - as specified in Clinical Information SYMPTOMATIC GALLSTONES Gall stones, common bile duct [K80.50] 01/16/2024 12:56 PM EDT [facility] Gross Description A. Gallbladder. Labeled/Fixative: Gallbladder, [...] hepatic margin is inked black Sections/Processi ng: Data Security Consultant sections in 1 cassettes as follows: A1: cystic duct margin and traveling sales representative mucosa. 01/16/2024 12:56 PM EDT [facility] Result Note Routine 01/16/2024 12:56 PM EDT [facility] Tissue GALLBLADDER STRUCTURE / Unknown 01/11/2024 6:24 PM EDT 01/11/2024 8:35 PM EDT Comment:SYMPTOMATIC GALLSTON ES Jian Latif MD PATHOLOGY/CYTOL OGY ORDERABLES [facility] [place] [address] * POC, GLUCOSE (01/11/2024 1:49 PM EDT) Glucometer, POC 98 65 - 199 mg/dL 01/11/2024 1:49 PM EDT [facility] Comment:Supplemental ranges: <140 mg/dL before meals <180 mg/dL all other times of the day. Blood CAPILLARY BLOOD / Unknown 01/11/2024 1:49 PM EDT 01/11/2024 1:49 PM EDT Jian Latif MD POINT OF CARE T EST ORDERABLES [facility] [place] [address] documented in this encounter Visit Diagnoses Not on filedocumented in this encounter Administered Medications Inactive Administered [...] Given 01/11/2024 2:23 PM EDT 975 mg BUPivacaine (pf) (Marcaine) (5 mg/mL) 0.5% injection PRN, Starting on Sun01/11/24 at 1703, Until 01/12/24 at 0030, Intra-Operative (Intra-Procedure), Routine Given 01/11/2024 5:03 PM EDT 12 mLs 19- Surgical Site heparin (porcine) (5,000 units/1 mL) subcutaneous injection 5,000 Units 5,000 Units, Subcutaneous, RN PEDIATRIC TO O.R., 1 dose, On Sun01/11/24 at [...] 1855, Until 01/12/24 at 0030, Pain, Routine scopolamine (Transderm-Scop) 1 [...] other PRN pain medications are ordered., Routine 1922 (Given - Provid er: Jeannie Mesa RN) [...] mL Mini-Bag Plus (COMPLETED) 2 g, Intravenous, RN PEDIATRIC TO O.R., 1 dose, On Sun01/11/24 at 1415, Administer over 30 Minutes, Indication for (Active or Suspected): Prophylaxis 1634 (New Bag - Prov ider: Dayna Vargas CRNA) heparin (porcine) (5,000 units/1 mL) subcutaneous injection 5,000 Units (COMPLETED) 5,000 Units, Subcutaneous, RN PEDIATRIC TO O.R., 1 dose, On Sun01/11/24 at 1415, Routine 1609 (Given - Provid er: Bhavesh Mckinley RN) ketorolac (Toradol) (15 mg/mL) injection 15 mg (COMPLETED) 15 mg, Intravenous, ONCE, 1 dose, On Sun01/11/24 at 1945, Routine 1922 (Given - Provid er: Jeannie Mesa RN) scopolamine (Transderm-Scop) 1 mg over 3 days patch 1 patch (CANCELED) 1 patch, Transdermal, Administer over 24 Hours, ONCE, 1 dose, On Sun01/11/24 at 1415, Day of Surgery (Day of Procedure), Routine 1424 (Patch Applied - Provider: Ashia Hastings RN)2230 [...] Procedure) 1427 (New Bag - Prov ider: Asiha Hastings, DINA)1612 (Paused - Provider: Dayna Vargas CRNA - [...] refused) documented in this encounter Care Teams Upsetting Machine Operator Relationship Specialty Start Date End Date Nereida Sharif MD [address] [place] [address] PCP - General 04/26/10 documented as of this encounter
--- OUTSIDE RECORDS SUMMARY | 2024-02-01 01:35 | XMS_ITS | Encounter Summary ---
[place] [address] Care Team Providers Care Paddock Judge Name Role Phone Nereida Sharif MD Primary Care Provider [phone] Reason for Visit * Auth/Cert (Routine) Specialty Diagnoses / Procedures Referred By Contac t Referred To Contact Diagnoses Gallstones SYMPTOMATIC GALLSTONES Procedures PRO LAP, CHOLECYSTECTOMY/GRAPH LAPAROSCOPIC CHOLECYSTECTOMY WITH CHOLANGIOGRAM (WRVU 11.47) Jian Carmichael MD [facility] [place] [address] [facility] Referral ID Status Reason Start Date Expiration Date Visits Re quested Visits Authorized [id number] 1 1 Encounter Details Date Type Department Care Team (Late st Contact Info) Description 01/11/2024 4:13 PM EDT Anesthesia [place] [phone] Josh Bernal MD [facility] DR [place] [address] Pebbles James MD [facility] [place] [address] Anesthesia Record Procedure Summary Procedure Name Responsible Anesthesiologist Anesthesia Start Time Anesthesia Stop Time ULTRASOUND, INTRAOP, ABDOMINAL, SINGLE ORGAN (WRVU 0.59) (Abdomen) Josh Bernal MD 01/11/24 1613 01/11/24 1855 Events Date Time Event Comment 01/11/2024 1528 1613 AN Verify 1613 Start 1613 An Start Data 1618 An Induction 1621 An Intubation 1631 Anesthesia Ready 1650 an lacey now 1842 Extubation/LMA Out 1855 Stop 1856 Recovery or ICU Handoff Ambreen ent care was transferred to the destination unit staff after review of the patient's medical history, current anesthetic/surgical status and plan, according to the Provider Handoff Checklist. 01/14/2024 1136 an stop data Meds Name Total midazolam 2 mg fentaNYL 100 mcg lidocaine IV 100 mg propofoL 200 mg rocuronium 70 mg ondansetron 4 mg dexAMETHasone 8 mg sugammadex 200 mg ceFAZolin (Ancef) 2 g vial a ttach to sodium chloride 0.9% 100 mL Mini-Bag Plus 2 g propofol INF 420.09 mg PHENYLephrine INF 390 mcg dexmedeTOMIDine 4 mcg/mL 8 mcg HYDROmorphone 0.6 mg lactated ringers infusion 1,000 mL * Agents Name O2 * Blood No blood administrations on file. Lines, Drains, and Airways Type Details Placement Removal Incision 01/11/24; 1645; ante rior, Bilateral; abdomen; laparoscopic punctures (specify) (trocars (x3)); STERIS AND DERMABOND 01/11/24 1645 by Volodymyr Archuleta, RN PIV 01/11/24; 1427; hoiz-jfh-nlxzxa catheter system; 22 gauge, 1.75 in length; cephalic vein (lateral side of arm), right; Ultrasound Guidance; Yes - US guidance used but Image NOT saved; tabby VIDAL RN; distraction, tolerated well, appears comfortable; 0; 01/11/24; 200501/11/24 1427 by Veronica Denson RN 01/11/242005 by Jeannie Mesa, RN ETT Mask Ventilation: Nando winter (1); ETT Type: Cuffed; ETT Size: 7 mm; Mac Blade: 3; Notes: Asleep, Pre-O2, Stylette; Attempts: 1; Laryngoscopy Grade: 2; ETT Placement Verified By: Auscultation, Capnometry, Visual; Secured at Teeth: 22 cm; Inserted by: Sushma; Removal Date: 01/11/24; Removal Time: 184101/11/24 1626 by Dayna Vargas CRNA 01/11/24 184 by Dayna Vargas CRNA documented in this encounter Social History Tobacco Use Types Packs/Day Years Used Date Smoking Tobacco: Never Smokeless Tobacco: Never Alcohol Use Standard Drinks/Week Comments No 0 (1 standard drink = 0.6 oz pur e alcohol) [facility] Inpatient Questions Answer Date Recorded Does Anyone [...] AM EST documented as of this encounter OR Notes * Anesthesia Postprocedure Evaluation - Josh Bernal MD - 01/11/2024 6:53 PM EDT Department of Anesthesiology Post-procedure Note Patient: Kassandra Sierra Procedure Summary Date: 01/11/24 Room / Location: [address] MAIN OR Anesthesia Start: 1613 Anesthesia Stop: Procedures: ULTRASOUND, INTRAOP, ABDOMINAL, SINGLE ORGAN (WRVU 0.59) (Abdomen) LAPAROSCOPIC CHOLECYSTECTOMY (WRVU 10.47) (Abdomen) Diagnosis: (SYMPTOMATIC GALLSTONES) Surgeons: Jian Carmicahel MD Responsible Provider: Josh Bernal MD Anesthesia Type: general ASA Status: 2 All Anesthesia Providers: Anesthesiologist: Josh Bernal MD WATER MAIN INSTALLER HELPER: Dayna Vargas CRNA Vitals Value Taken Time BP 127/77 01/11/24 1850 Temp Pulse 77 01/11/24 1852 Resp 14 01/11/24 1852 SpO2 100 % 01/11/24 1852 Pain Level Vitals shown include unfiled device data. Patient Location: PACU/SDP Level of Consciousness: Conscious but Sleepy Pain Management: Satisfactory Analgesia PONV: None Cardiovascular Status: Hemodynamically Stable Respiratory Status: Stable Respiratory Status Postoperative Fluid Status: Intravascular EUvolemia Possible Anesthetic Complications: NONE apparent at time of evaluation Final Primary Anesthesia Type: General (The anesthetic type performed was the same as planned.) Comments: * Anesthesia Preprocedure Evaluation - Josh Bernal MD - 01/10/2024 5:16 PM EDT Pre-Anesthesia Evaluation for: Kassandra Sierra a 58 y.o. female. Procedure(s): LAPAROSCOPIC CHOLECYSTECTOMY WITH CHOLANGIOGRAM (WRVU 11.47) Patient Active Problem List Diagnosis Date Noted ??? At high risk for breast cancer 01/25/2021 ??? Radial scar of left breast 07/15/2020 ??? Extremely dense tissue of both breasts on mammography 01/07/2020 ??? Atypical lobular hyperplasia of left breast 01/07/2020 Past Medical History: Diagnosis Date ??? Amblyopia OS ??? SOFTWARE RELEASE ENGINEER (central serous retinopathy) 05/15/2013 ??? Neuromuscular disorder Herniated cervical ??? Strabismus Past Surgical History: Procedure Laterality Date ??? BREAST BIOPSY Left 01/2019 needle loc; atypical hyperplasia ??? BREAST CYST EXCISION Left 01/2019 atypical hyperplasia ??? MAMMO STEREOTACTIC BIOPSY LEFT N/A 12/09/2018 Mammo Stereotactic Biopsy Left 12/09/2018 [facility] RAD MAMMOGRAPHY ??? PRO EXCISE BREAST LES W XRAY MARKER Left 01/31/2019 EXCISION LESION, BREAST W/ PREOP.MARKER (NEEDLE LOC.) (WRVU 6.69) performed by Carleen Magdaleno MD at [facility] OSC Social History Tobacco Use ??? Smoking status: Never ??? Smokeless tobacco: Never Substance Use Topics ??? Alcohol use: No Social History Substance and Sexual Activity Drug Use No Allergies Allergen Reactions ??? Cephalexin ??? Paxlovid (Eua) [Nirmatrelvir-Ritonavir] Throat swelling Medications: MAR and/or home medications have been reviewed. Physical Exam: Preprocedure Vitals Current as of 01/10/24 1716 No BP, pulse, respiration, SpO2, or temperature recorded. Height: Weight: BMI: IBW: Airway Assessment: Mallampati: II TM distance: <3 FB Neck ROM: full Cardiovascular Assessment: system normal Pulmonary Assessment: pulmonary exam normal Dental Assessment: - normal exam Misc Assessment: IV access: Peripheral line Last Filed Perioperative Cognitive Screening None Anesthesia Plan: ASA 2 general, with a(n) intravenous induction 58 y.o. female with symptomatic gallstones scheduled for laparoscopic cholecystectomy. Medical History: HTN (HCTZ), Herniated cervical disc, neuromuscular disorder, central serous retinopathy Surgical History: excision of breast lesion Anesthetic History: No airway history in chart. Has tolerated MAC before. Allergies reviewed - cephalexin, paxlovid Labs reviewed Exercise tolerance: Greater than 4 METS. Walks 3-5 miles a day. NPO Status: Adequate Anesthetic Plan: GA w/ ETT Standard ASA monitoring PIV access Region - Other Informed Consent: Anesthetic plan and risks discussed with patient and spouse. Plan discussed with WATER MAIN INSTALLER HELPER. Anesthesia Screening documented in this encounter Plan of Treatment Upcoming Encounters Date Type Department Care Team (Late st Contact Info) Description 02/11/2024 2:15 PM EDT Office [place] [address] Julee Ibarra [facility] [place] [address] 02/15/2024 10:45 AM EDT Office Visit General Surgery at [place] [phone] Jian Carmichael MD [facility] [place] [address] 03/12/2024 8:00 AM EDT Appointment Mammography/DXA at [place] [phone] Ting George CYLINDER BLOCK MECHANIC [facility] [place] [address] 03/12/2024 9:00 AM EDT Office Visit General Surgery [place] [address] Ting George APRN [facility] [place] [address] documented as of this encounter Visit Diagnoses Not on filedocumented in this encounter Administered Medications Inactive Administered Medications - up to 3 most recent administrations Medication Order MAR Action Action Date Dose Rate Site ceFAZolin (Ancef) 2 g vial attach to sodium chloride 0.9% 100 mL Mini-Bag Plus 2 g, Intravenous, HEALTH INFORMATION DIRECTOR TO O.R., 1 dose, On Sun01/11/24 at 1415, Administer over 30 Minutes, Indication for (Active or Suspected): Prophylaxis New Bag 01/11/2024 4:34 PM EDT 2 g dexAMETHasone (Decadron) injection Intravenous, PRN, Starting on Sun01/11/24 at 1636, Until Sun01/14/24 at 1136, Anesthesia Intra-op, Routine Given 01/11/2024 4:36 PM EDT 8 mg dexmedeTOMIDine (Precedex) (4 mcg/mL) bolus injection (Anesthsia) Intravenous, PRN, Starting on Sun01/11/24 at 1652, Until Sun01/14/24 at 1136, Anesthesia Intra-op, Routine Given 01/11/2024 4:55 PM EDT 4 mcg Given 01/11/2024 4:52 PM EDT 4 mcg fentaNYL (pf) (50 mcg/mL) multi-dose injection Intravenous, PRN, Starting on Sun01/11/24 at 1618, Until Sun01/14/24 at 1136, Anesthesia Intra-op, Routine Given 01/11/2024 4:30 PM EDT 50 mcg Given 01/11/2024 4:18 PM EDT 50 mcg HYDROmorphone (Dilaudid) (2 mg/mL) multi-dose injection solution Intravenous, PRN, Starting on Sun01/11/24 at 1654, Until Sun01/14/24 at 1136, Anesthesia Intra-op, Routine Given 01/11/2024 5:26 PM EDT 0.2 mg Given 01/11/2024 4:54 PM EDT 0.4 mg lactated ringers infusion 1,000 mL, at 100 mL/hr, Intravenous, CONTINUOUS, Starting on Sun01/11/24 at 1415, Until Sun01/11/24 at 2006, Day of Surgery (Day of Procedure) New Bag 01/11/2024 4:13 PM EDT New Bag 01/11/2024 2:27 PM EDT 1,000 mLs 100 mL/hr lidocaine (pf) (Xylocaine) (20 mg/mL) 2% injection syringe Intravenous, PRN, Starting on Sun01/11/24 at 1618, Until Sun01/14/24 at 1136, Anesthesia Intra-op, Routine Given 01/11/2024 4:18 PM EDT 100 mg midazolam (pf) (Versed) (1 mg/mL) multi-dose injection Intravenous, PRN, Starting on Sun01/11/24 at 1613, Until Sun01/14/24 at 1136, Anesthesia Intra-op, Routine Given 01/11/2024 4:13 PM EDT 2 mg ondansetron (pf) (Zofran) (2 mg/mL) injection Intravenous, PRN, Starting on Sun01/11/24 at 1830, Until Sun01/14/24 at 1136, Anesthesia Intra-op, Routine Given 01/11/2024 6:30 PM EDT 4 mg PHENYLephrine (Dex-Synephrine) (80 mcg/mL) in sodium chloride 0.9% 250 mL infusion Intravenous, CONTINUOUS PRN, Starting on Sun01/11/24 at 1638, Until Sun01/14/24 at 1136, Anesthesia Intra-op, Routine New Bag 01/11/2024 4:38 PM EDT 30 mcg/min 22.5 mL/hr propofoL (Diprivan) (10 mg/mL) infusion Intravenous, CONTINUOUS PRN, Starting on Sun01/11/24 at 1622, Until Sun01/14/24 at 1136, Anesthesia Intra-op, Routine New Bag 01/11/2024 4:22 PM EDT 50 mcg/kg/min 18.81 mL/hr propofoL (Diprivan) 10 mg/mL bolus injection (Anesthesia) Intravenous, PRN, Starting on Sun01/11/24 at 1618, Until Sun01/14/24 at 1136, Anesthesia Intra-op Given 01/11/2024 4:18 PM EDT 200 mg rocuronium (Zemuron) (10 mg/mL) multi-dose injection Intravenous, PRN, Starting on Sun01/11/24 at 1619, Until Sun01/14/24 at 1136, Anesthesia Intra-op, Routine Given 01/11/2024 4:46 PM EDT 20 mg Given 01/11/2024 4:19 PM EDT 50 mg sugammadex (Bridion) 100 mg/mL injection Intravenous, PRN, Starting on Sun01/11/24 at 1836, Until Sun01/14/24 at 1136, Anesthesia Intra-op, Routine Given 01/11/2024 6:36 PM EDT 200 mg documented in this encounter Care Teams Paddock Judge Relationship Specialty Start Date End Date Nereida Sharif MD [address] [place] [address] PCP - General 04/26/10 documented as of this encounter
--- OUTSIDE RECORDS SUMMARY | 2024-02-01 01:35 | XMS_ITS | Encounter Summary ---
[place] [address] Care Team Providers Care Automatic Maintainer Name Role Phone Nereida Sharif MD Primary Care Provider [phone] Encounter Details Date Type Department Care Team (Latest Contact Info) Description 10/26/2023 Travel Social History Tobacco Use Types Packs/Day [...] 2:15 PM EDT Office [place] [phone] Julee Ibarra APRN [facility] [place] [address] 02/15/2024 10:45 AM EDT Office [place] [phone] Jian Carmichael MD [facility] [place] [address] 03/12/2024 8:00 AM EDT Appointment Mammography/[place] [address] Ting George [facility] [place] [address] 03/12/2024 9:00 AM EDT Office [place] [phone] Ting George [facility] [place] [address] documented as of this encounter Visit Diagnoses Not on filedocumented in this encounter Care Teams Automatic Maintainer Relationship Specialty Start Date End Date Nereida Sharif MD [address] [place] [address] PCP - General 04/26/10 documented as of this encounter
--- OUTSIDE RECORDS SUMMARY | 2024-02-01 01:35 | XMS_ITS | Encounter Summary ---
[place] [address] Care Team Providers Care Crate Opener Name Role Phone Nereida Sharif MD Primary Care Provider [phone] Encounter Details Date Type Department Care Team (Latest Contact Info) Description 10/19/2023 Travel Social History Tobacco Use Types Packs/Day [...] 2:15 PM EDT Office Visit [place] [phone] Julee Ibarra APRN [facility] [place] [address] 02/15/2024 10:45 AM EDT Office [place] [phone] Jian Carmichael MD [facility] [place] [address] 03/12/2024 8:00 AM EDT Appointment Mammography/[place] [address] [facility] [place] [address] 03/12/2024 9:00 AM EDT Office Visit [place] [phone] [facility] [place] [address] documented as of this encounter Visit Diagnoses Not on filedocumented in this encounter Care Teams Crate Opener Relationship Specialty Start Date End Date Nereida Sharif MD [address] [place] [address] PCP - General 04/26/10 documented as of this encounter
--- OUTSIDE RECORDS SUMMARY | 2024-02-01 01:35 | XMS_ITS | Encounter Summary ---
Author Organization [facility] [place] [address] Care Team Providers Care Botany Professor Name Role Phone Nereida Sharif MD Primary Care Provider [phone] Encounter Details Date Type Department Care Team (Late st Contact Info) Description 10/03/2023 Ancillary Procedure [place] [phone] Nereida Sharif MD [address] [place] [address] Social History Tobacco Use Types Packs/Day Years [...] 2:15 PM EDT Office Visit [place] [phone] Julee Ibarra APRN [facility] [place] [address] 02/15/2024 10:45 AM EDT Office [place] [phone] Jian Carmichael MD [facility] [place] [address] 03/12/2024 8:00 AM EDT Appointment Mammography/[place] [address] Ting [facility] [place] [address] 03/12/2024 9:00 AM EDT Office [place] [phone] Ting George [facility] [place] [address] documented as of this encounter Procedures Procedure Name Priority Date/Time Associated Diagnosis Comments FILM LIBRARY STORAGE ONLY ULTRASOUND STUDY Routine 10/03/2023 12:00 AM EDT documented in this encounter Results * Film Library- Storage Only Ultrasound Study (10/03/2023 12:00 AM EDT) Narrative [facility] - 10/18/2023 2:52 AM EDT This exam is auto-finalizing. It's purpose is for storage only. Nereida Sharif MD IMG FILM LIBRARY ORD ERABLES [place], [place] documented in this encounter Visit Diagnoses Not on filedocumented in this encounter Care Teams Botany Professor Relationship Specialty Start Date End Date Nereida Sharif MD [address] [place] [address] PCP - General 04/26/10 documented as of this encounter
--- OUTSIDE RECORDS SUMMARY | 2024-02-01 01:35 | XMS_ITS | Clinical Summary ---
[facility] [place] [address] Care Team Providers Care Complaint Specialist Name Role Phone Nereida Sharif MD Primary Care Provider [phone] Allergies Active Allergy Reactions Criticality Noted Date Comments Cephalexin 12/04/2019 Nirmatrelvir-Ritonavir 08/22/2022 Throat swelling Medications Medication Sig Dispensed Refills Start Date End Date Status hydroCHLOROthiazide (HYDRODIURIL) 25 mg Tablet Take 25 mg by mouth as needed. Active oxyCODONE (Roxicodone) 5 mg tablet Take 1 tablet by mouth every 6 hours as needed for Pain (for severe pain not relieved by tylenol and motrin). 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 Encounters Date Type Department Care Team Description 01/11/2024 4:13 PM EDT Anesthesia Event [place] [phone] Josh Bernal MD Sarnacki, Emily E, MD 01/11/2024 3:57 PM EDT - 01/11/2024 7:30 PM EDT Surgery [place] [address] Jian Carmichael MD ULTRASOUND, INTRAOP, ABDOMINAL, SINGLE ORGAN (WRVU 0.59) 01/11/2024 1:10 PM EDT - 01/11/2024 10:30 PM EDT Hospital Encounter [place] [address] Jian Carmichael MD Gall stones, common bile duct Discharge Disposition: Home 01/11/2024 Interpretation Only Radiology [address] [place] [address] [place] [address] Unknown 11/08/2023 Transcribe Orders eDH Incoming Referrals [phone] Nereida Sharif MD Abnormal results of liver function studies; Steatosis of liver 11/02/2023 Telephone [place] [address] Melanie Blum from Last 3 Months Immunizations Name Administration Dates Next Due Covid-19 (Pfizer), Purple Ca p Monovalent Vaccine (12yrs+) 09/10/2020,08/13/2020 Influenza PF, Split 03/25/2014,03/06/2013 MMR Vaccine LIVE 03/06/2013 TD Adult 06/04/1996 Tdap 03/06/2013 Varicella (Varivax) LIVE 03/06/2013 Family History Medical History Relation Comments Hypertension Father Prostate Cancer Father metastatic to barb ne Breast Cancer Maternal Aunt in her 60s Kidney Cancer Maternal Cousin MGM's brother's daughter Leukemia Maternal Grandmother Colorectal Cancer Paternal Aunt Ovarian Cancer Paternal Aunt Stomach Cancer Paternal Grandmother at 37 Leukemia Paternal Uncle Amblyopia Sister Diabetes Sister Strabismus Sister Cataracts Neg Hx Glaucoma Neg Hx Heart Disease Neg Hx Macular Degeneration Neg Hx Retinal Detachment Neg Hx Thyroid Disease Neg Hx Relation Status Comments Father Maternal Aunt Maternal Cousin Maternal Grandmother Paternal Aunt Paternal Grandmother Paternal Uncle (Age 55) Sister Social History Tobacco Use Types Packs/Day Years Used Date Smoking Tobacco: Never Smokeless Tobacco: Never Alcohol Use Standard Drinks/Week Comments No 0 (1 standard drink = 0.6 oz pur e alcohol) [facility] Inpatient Questions Answer Date Recorded Does Anyone [...] Orientation Straight 07/15/2020 10 :54 AM EST Last Filed Vital Signs Vital Sign Reading [...] Mass Index 28.32 01/11/2024 1:48 PM EDT Plan of Treatment Upcoming Encounters Date Type Department Care Team (Late st Contact Info) Description 02/11/2024 2:15 PM EDT Office [place] [phone] Julee Ibarra APRN [facility] [place] [address] 02/15/2024 10:45 AM EDT Office [place] [address] Jian Carmichael MD [facility] [place] [address] 03/12/2024 8:00 AM EDT Appointment Mammography/[place] [phone] Ting George, [facility] [address] 03/12/2024 9:00 AM EDT Office [place] [phone] Ting George, [facility] [address] Health Maintenance Due Date Last Done Comments CT Colonography 1967 Colonoscopy 1967 Colorectal Cancer Screening 1967 FIT DNA 1967 FIT 1967 Sigmoidoscopy (10 year) with FIT yearly 1967 Sigmoidoscopy 1967 HIV screen 10/16/1985 Hepatitis C Screening 10/16/1985 Hepatitis B vaccine (0-59 yrs) (1) 10/16/1986 HPV test 10/16/1997 PAP Smear 10/16/1997 Breast Cancer Share Decision Needed 2007 Diabetes Screening (HgbA1C o r Glucose) 05/15/2017 05/15/2014 Zoster vaccine (1 of 2) 10/16/2017 Covid-19 Vaccine (3 - 2022-2 4 season) 2023 09/10/2020, 08/13/2020 Tetanus vaccine 03/06/2023 03/06/2013, 06/04/1996 Influenza (Flu) vaccine (1 o f 1 - Influenza standard series) 02/03/2024 03/25/2014, 03/06/2013 Breast Cancer screening 02/26/2025 02/27/20 23, 01/25/2021, 01/07/2020 Tdap adult Completed 03/06/2013 Lipid Screening Discontinued 05/15/2014 Medical Devices Implanted Type Area Electroplater Device Identifier Shelf Expiration Date Model / Serial / Lot Breast Clip-12/09/2018 Implanted:Qty: 1 on 12/09/2018 by Cris Wilson MD Breast Clip Left: Breast [id number] / [id number] / Description:DAYLIN WALTERANI UM CYLINDER Procedures Procedure Name Priority Date/Time Associated Diagnosis Comments SURGICAL PATHOLOGY Routine 01/11/2024 6: 24 PM EDT Gall stones, common bile duct Lap, Cholecystectomy (06867) Yes 01/11/2024 4:12 PM EDT SYMPTOMATIC GALLSTONES PRG US Abdomen Real Time, Limited (85998) Yes 01/11/2024 4:12 PM EDT SYMPTOMATIC GALLSTONES POC, GLUCOSE Routine 01/11/2024 1:49 PM EDT DH OR ENDOSCOPY Routine 01/11/2024 MAMMO SCREENING CAD AND TORITO BILATERAL Routine 02/26/2023 8:11 AM EDT Atypical lobular hyperplasia of left breast Radial scar of left breast Dense breast tissue on mammogram At high risk for breast cancer Screening mammogram for high-risk patient LIPID PANEL (REFLEX DIRECT LDL) Routine 05/15/2014 7:58 AM EST COMPREHENSIVE METABOLIC PANEL Routine 05/15/2014 7:58 AM EST from Last 3 Months or Most Recently Relevant to Health Maintenance Results * Surgical Pathology (01/11/2024 6:24 PM EDT) Case Report Surgical Pathology Report ? Case: [id number] ? Authorizing Provider: ??Jian Carmichael MD Collected: ? 01/11/2024 1824 ? Ordering Location: ? Main Operating Room [place] ?? Received: ?01/11/20242034 ? [facility] ? Hospital ? Pathologist: ? Samira Mendez MD ? Specimen: ?Gallbladder ? 01/16/2024 12:56 PM EDT [facility] Final Diagnosis A. Gallbladder, Gallbladder Excision: Chronic cholecystitis and cholelithiasis. 01/16/2024 12:56 PM EDT [facility] Clinical Information A. Gallbladder, Gallbladder *Other - as specified in Clinical Information SYMPTOMATIC GALLSTONES Gall stones, common bile duct [K80.50] 01/16/2024 12:56 PM EDT [facility] Gross Description A. Gallbladder. Labeled/Fixative: [...] hepatic margin is inked black Sections/Processi ng: Carpet Journeyman sections in 1 cassettes as follows: A1: cystic duct margin and front desk representative mucosa. 01/16/2024 12:56 PM EDT [facility] Result Note Routine 01/16/2024 12:56 PM EDT [facility] Tissue GALLBLADDER STRUCTURE / Unknown 01/11/2024 6:24 PM EDT 01/11/2024 8:35 PM EDT Comment:SYMPTOMATIC GALLSTON ES Jian Leon MD PATHOLOGY/CYTOL OGY ORDERABLES Performing Organization Address City/State/[facility] Co de Phone Number [facility] [place] [address] * POC, GLUCOSE (01/11/2024 1:49 PM EDT) Glucometer, POC 98 65 - 199 mg/dL 01/11/2024 1:49 PM EDT [facility] Comment:Supplemental ranges: <140 mg/dL before meals <180 mg/dL all other times of the day. Blood CAPILLARY BLOOD / Unknown 01/11/2024 1:49 PM EDT 01/11/2024 1:49 PM EDT Jian Leon MD POINT OF CARE T [place] [address] * DH OR Endoscopy (01/11/2024) Anatomical Region Laterality Modality Other 01/11/2024 Narrative 01/11/2024 12:00 AM EDT Photographs - Images Procedure Note Unknown - 01/14/2024 Photographs - Images Unknown EA IMAGES * Mammo Screening Cad and Torito Bilateral (02/26/2023 8:11 AM EDT) Anatomical Region Laterality Modality Breast Bilateral Mammography Impressions 02/26/2023 8:44 AM EDT No mammographic evidence of malignancy, Routine annual screening mammography is recommended. FINAL ASSESSMENT: BI-RADS Category 2: Benign Findings * ??Regular screening mammograms starting at age 40 reduces the risk of from breast cancer. * ??Yearly screening provides the most benefit. Women should discuss with their provider their preferred breast cancer screening schedule. * ??Women should report any breast changes to a health care provider right away. * ??Some women, because of their family history, a genetic tendency, or other factors, should be screened with annual breast MRI as well as with mammograms. Thank you for letting us participate in the care of this patient. ??If you are a health care provider and have any questions regarding this report, please contact the number below. ??For patients who have questions please contact the health childcare center director that requested your imaging first. ? Electronically signed by: Mandy Quintanilla MD[facility] ([phone]), at 02/26/2023 8:44 AM Narrative 02/26/2023 8:44 AM EDT EXAMINATION: MAMMO SCREENING CAD AND TORITO BILATERAL REASON FOR EXAM: Screening TECHNIQUE: CC and MLO views were obtained of BOTH breasts. 2D and 3D tomosynthesis images were obtained. Computer aided detection was used. COMPARISON: Comparison was made to the prior relevant examinations. BREAST DENSITY: The breast tissue is extremely dense, which lowers the sensitivity of mammography. FINDINGS: Stable postbiopsy changes left breast. Scattered stable calcifications. There are no suspicious microcalcifications, masses, or areas of distortion. Stable appearance. Ting George APRN IMG MAMMO ORD ERABLES * (ABNORMAL) Lipid panel (fasting) (05/15/2014 7:58 AM EST) Cholesterol, Total 242(H) <=199 mg/dL CERNER MILLENNIUM Comment: Recommendations of the NCEP Adult Treatment Panel for the following risk cutoff thresholds for the [place] population: Desirable: <200 mg/dL Borderline High: 200-239 mg/dL High: > or = 240 mg/dL Triglyceride 98 <=149 mg/dL CERNER MILLENNIUM Comment: Reference Range: Normal triglycerides: ??<150 mg/dL Borderline high: ??150-199 mg/dL High: ??200-499 mg/dL Very high: ??>lm=912 mg/dL DODIE 2001; 285(19):0461-1842 HDL Cholesterol 62 >=40 mg/dL CER NER MILLENNIUM Comment: Reference range: ??Low HDL: ?? < 40 mg/dL ??Normal: ?40-60 mg/dL ??Desirable: > 60 mg/dL DODIE 2001; 285(19):8031-7127 LDL Cholesterol 160(H) <=99 mg/dL CER NER MILLENNIUM Comment: Reference range: ?? Optimal: ?<100 mg/dL ?? Near Optimal/Above Optimal: ?? 100-129 mg/dL ?? Borderline high: ?130-159 mg/dL ?? High: ? 160-189 mg/dL ?? Very high: ?>fu=504 mg/dL DODIE 2001: 285(19):9685-9826 Cholesterol/HDL Ratio 3.9 ratio CERNER MILLENNIUM Comment: A Cholesterol to HDL ratio below 4:1 is desirable. ??Studies suggest that increased CAD risk occurs at ratios above 5 for females and above 6 for men. ? [place] Heart Association ??(http://www.americanheart.org) ? Bhumi Int Med, 1994; 121:641 ? AM J Med, 1998; 105(1A):48S Blood specimen (specimen) Venous Draw / Unknown 05/15/2014 7:58 AM EST 05/15/2014 8:04 AM EST Narrative Resulting Agency Comment Spec In Lab César Garza MD CHEMISTRY ORDERABLES [facility] * (ABNORMAL) Comprehensive metabolic panel (non-fasting) (05/15/2014 7:58 AM EST) [facility] Glucose 96 60 - 199 mg/dL CERNER MILLENNIUM Comment:Diabetes: >=200 mg/d L plus symptoms Blood Urea Nitrogen 21(H) 8 - 18 mg/dL CERNER MILLENNIUM Creatinine 0.61(L) 0.70 - 1.20 mg/dL CERNER MILLENNIUM Comment: Please note that the pediatric reference intervals supplied above were not validated at [facility]. Results from pediatric patients should be interpreted in conjunction to the patient's age, height and muscle mass. Sodium 142 135 - 145 mmol/L CERNER MILLENNIUM Potassium 4.4 3.5 - 5.0 mmol/L CERNER MILLENNIUM Comment: Please note: ??Patients with WBC >100,000 may have falsely elevated Potassium levels. ??For accurate Potassium quantification in these patients send serum separator tube (gold top) for subsequent determinations. ??Contact the Clinical Chemistry Laboratory if there are any questions. Chloride 102 98 - 107 mmol/L CERNER MILLENNIUM Carbon Dioxide 29 22 - 31 mmol/L CERNER MILLENNIUM Anion Gap 11 5 - 15 mmol/L CERNER MILLENNIUM Calcium 9.4 8.5 - 10.5 mg/dL CERNER MILLENNIUM Protein, Total 7.0 6.4 - 8.3 gm/dL CERNER MILLENNIUM Albumin 4.4 3.2 - 5.2 gm/dL CERNER MILLENNIUM Aspartate Aminotransferase 29 0 - 30 unit/L CERNER MILLENNIUM Alanine Aminotransferase 69(H) 0 - 30 unit/L CERNER MILLENNIUM Alkaline Phosphatase 84 40 - 104 unit/L CERNER MILLENNIUM Bilirubin, Total 0.4 0.2 - 1.3 mg/dL CERNER MILLENNIUM Bilirubin, Direct 0.1 0.0 - 0.3 mg/dL CERNER MILLENNIUM Est Glomerular Filtration Rate >60 >=60 CERNER MILLENNIUM Comment: This estimated GFR (eGFR) value was calculated using the MDRD equation which has been validated on patients between the ages of 18 and 70. The MDRD should not be used to assess kidney function in patients < 18 years of age or in patients with extremes of body mass, or in patients with acute kidney failure. This value should be multiplied by 1.2 for patients. For further information please copy and paste the following links into your internet browser. http://[employer]/DHnkdep http://[employer]/DHMCnkf Blood specimen (specimen) Venous Draw / Unknown 05/15/2014 7:58 AM EST 05/15/2014 8:04 AM EST Narrative Resulting Agency Comment Spec In Lab César Garza MD CHEMISTRY ORDERABLES CERNER MILLENNIUM from Last 3 Months or Most Recently Relevant to Health Maintenance Advance Directives Documents on File Type Date Recorded Patient Carpet Journeyman Expl anation Advance Directives and Living Will 07/17/2023 3:02 PM [place] Advance Directive dtd 07-17-23 Care Teams Complaint Specialist Relationship Specialty Start Date End Date Nereida Sharif MD [address] [place], [place] [id number] PCP - General 04/26/10
--- OUTSIDE RECORDS SUMMARY | 2024-02-01 01:35 | XMS_ITS | Encounter Summary ---
[place] [address] Care Team Providers Care Pump Tester Name Role Phone Nereida Sharif MD Primary Care Provider Encounter Details Date Type Department Care Team (Latest Contact Info) Description 08/27/2023 Travel Social History Tobacco Use Types Packs/Day [...] 2:15 PM EDT Office [place] [phone] Julee Ibarra APRN [facility] [place] [address] 02/15/2024 10:45 AM EDT Office [place] [phone] Jian Carmichael MD [facility] [place] [address] 03/12/2024 8:00 AM EDT Appointment Mammography/[place] [address] Ting George [facility] [place] [address] 03/12/2024 9:00 AM EDT Office [place] [phone] Ting George [facility] [place] [address] documented as of this encounter Visit Diagnoses Not on filedocumented in this encounter Care Teams Pump Tester Relationship Specialty Start Date End Date Nereida Sharif MD [address] [place] [address] PCP - General 04/26/10 documented as of this encounter
--- OUTSIDE RECORDS SUMMARY | 2024-02-01 01:35 | XMS_ITS | Encounter Summary ---
[place] [address] Care Team Providers Care Inspector Rag Sorting Name Role Phone Nereida Sharif MD Primary Care Provider [phone] Encounter Details Date Type Department Care Team (Late st Contact Info) Description 11/02/2023 Telephone [place] [phone] Melanie Blum Social History Tobacco Use Types Packs/Day Years [...] AM EST documented as of this encounter Miscellaneous Notes * Telephone Encounter - Melanie Blum - 11/02/2023 9:36 AM EDT Patient called to schedule a referral to GI for elevated LFTs. Patient said this referral was faxedto our facility on 10/17/23, however the referral is not in our system yet for scheduling purposes. Patient was given our fax number for new GI referrals and I also connected her with the main switchboard to talk with someone in the [facility]. documented in this encounter Plan of Treatment Upcoming Encounters Date Type Department Care Team (Late st Contact Info) Description 02/11/2024 2:15 PM EDT Office Visit Gastroenterology at [place] [address] [address] [facility] [place] [address] 02/15/2024 10:45 AM EDT Office Visit General Surgery at [address] Jian Carmichael MD [facility] [place] [address] 03/12/2024 8:00 AM EDT Appointment Mammography/[place] [address] Ting George, [facility] [place] [address] 03/12/2024 9:00 AM EDT Office Visit General Surgery at [place] [address] Ting George, [facility] [place] [address] documented as of this encounter Visit Diagnoses Not on filedocumented in this encounter Care Teams Inspector Rag Sorting Relationship Specialty Start Date End Date Nereida Sharif MD [address] [place] [address] PCP - General 04/26/10 documented as of this encounter
--- OUTSIDE RECORDS SUMMARY | 2024-02-01 01:35 | XMS_ITS | Encounter Summary ---
[place] [address] Care Team Providers Care Lapel Padder Blindstitch Name Role Phone Nereida Sharif MD Primary Care Provider [phone] Encounter Details Date Type Department Care Team (Latest Contact Info) Description 10/10/2023 Travel Social History Tobacco Use Types Packs/Day [...] 2:15 PM EDT Office Visit [place] [phone] Julee Ibarra APRN [facility] [place] [address] 02/15/2024 10:45 AM EDT Office Visit [place] [phone] Jian Carmichael MD [facility] [place] [address] 03/12/2024 8:00 AM EDT Appointment Mammography/[place] [address] Ting George [facility] [place] [address] 03/12/2024 9:00 AM EDT Office Visit [place] [phone] Ting George [facility] [place] [address] documented as of this encounter Visit Diagnoses Not on filedocumented in this encounter Care Teams Lapel Padder Blindstitch Relationship Specialty Start Date End Date Nereida Sharif MD [address] [place] [address] PCP - General 04/26/10 documented as of this encounter
--- OUTSIDE RECORDS SUMMARY | 2024-02-01 01:35 | XMS_ITS | Encounter Summary ---
Author Organization [facility] Address [place] [id number] Care Team Providers Care Cellophane Wrapping Examiner Name Role Phone Nereida Sharif MD Primary Care Provider Reason for Referral * Consultation (Routine) - Authorized Specialty Diagnoses / Procedures Referred By Contac t Referred To Contact Gastroenterology Diagnoses Abnormal results of liver function studies Steatosis of liver Nereida Sharif MD [address] [place] [address] [facility] [address] [place] [address] Referral ID Status Reason Start Date Expiration Date Visits Requested Visits Authorized [id number] Authorized Consult, Test & Treat PCP Updated and/or Approved 11/08/2023 11/07/2024 6 6 Encounter Details Date Type Department Care Team (Late st Contact Info) Description 11/08/2023 Transcribe Orders eDH Incoming Referrals [phone] Nereida Sharif MD [address] [place], [place] [address] Abnormal results of liver function studies; Steatosis of liver Social History Tobacco Use Types Packs/Day Years [...] 2:15 PM EDT Office Visit Gastroenterology at [place] [phone] Julee Ibarra, [facility] GASTROENTEROLOGY [place] [address] 02/15/2024 10:45 AM EDT Office Visit General Surgery at [place] [phone] Jian Carmichael MD [facility] GENERAL SURGERY [place] [address] 03/12/2024 8:00 AM EDT Appointment Mammography/DXA at [place] [phone] Ting George, [facility] GENERAL SURGERY [place] [address] 03/12/2024 9:00 AM EDT Office Visit [place] [phone] Ting George [facility] GENERAL SURGERY [place] [address] Scheduled Referrals Name Type Priority Associated Diagnoses Order Schedule Referral to Gastroenterology Outpatient Referral Routine Abnormal results of liver function studies Steatosis of liver Ordered: 11/08/2023 documented as of this encounter Visit Diagnoses Diagnosis Abnormal results of liver function studies Nonspecific abnormal results of liver function study Steatosis of liver Other chronic nonalcoholic liver disease documented in this encounter Care Teams Cellophane Wrapping Examiner Relationship Specialty Start Date End Date Nereida Sharif MD [address] [place] [address] PCP - General 04/26/10 documented as of this encounter
--- OUTSIDE RECORDS SUMMARY | 2024-02-01 01:35 | XMS_ITS | Encounter Summary ---
Author Organization Formerly [facility] [place] [address] Care Team Providers Care Digital Production Artist Name Role Phone Nereida Sharif MD Primary Care Provider [phone] Reason for Visit * Consultation (Routine) - Closed Specialty Diagnoses / Procedures Referred By Contac t Referred To Contact Vascular Surgery Diagnoses Leg swelling Nereida Sharif MD [address] [place] [address] [facility] [address] [place] [address] Referral ID Status Reason Start Date Expiration Date V isits Requested Visits Authorized [id number] Closed Consult, Test & Treat 10/01/2023 09/30/2024 1 1 Encounter Details Date Type Department Care Team (Late st Contact Info) Description 2023 3:00 PM EDT Office Visit [place] [address] Elina Hanson APRN [facility] [place] [address] Edema of lower extremity Social History Tobacco [...] Sign Reading Time Taken Comments Blood Pressure 127/91 2023 3:00 PM EDT Pulse 78 2023 3:00 PM EDT Temperature - - Respiratory Rate - - Oxygen Saturation - - Inhaled Oxygen Concentration - - Weight 79.8 kg (176 lb) 2023 3:00 PM EDT Height 162.6 cm (5' 4) 2023 3:00 PM EDT Body Mass Index 30.21 2023 3:00 PM EDT documented in this encounter Progress Notes * Elina Hanson, DIGITAL ACCOUNT COORDINATOR - 2023 3:00 PM EDT Vascular New Patient This is a new patient to the practice who is being evaluated for LLE swelling and was referred by Nereida Sharif MD. HPI: 58 y.o. female with PMH: Left ankle and foot trauma. Ms. Sierra presents to clinic today for evaluation of her L LE swelling. She reports a history of the left ankle and foot trauma, with multiple breaks, in 2019. About 2 years ago she started toexperience some swelling in her ankle, accompanied by aching behind the knee down to the front of her leg where the leg connects to my foot. She denies a history of varicose veins, family history of varicose veins, and history of swelling prior to the trauma. She denies venous ulcerations, history of cellulitis, and history of DVT. Denies BLE claudication, rest pain and distal tissue loss. She endorses wearing knee heigh compression socks since 2019 and is wearing ankle height compression socks in the clinic today. She works for [employer], with little opportunity to elevateher legs throughout the day. Patient denies CVA or TIA: denies episodes of unilateral extremity weakness, facial droop, acute change in vision or speech. No complaint of UE pain, tissue loss or fatigue. Denies chest pain and dyspnea presently. She notes that her mother had transverse myelitis - idiopathic cause and Idiopathic thrombocytopenic purpura (ITP). 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 RAD MAMMOGRAPHY PRO EXCISE BREAST LES W XRAY MARKER Left 01/31/2019 EXCISION LESION, BREAST W/ PREOP.MARKER (NEEDLE LOC.) (WRVU 6.69) performed by Carleen Magdaleno MD at [facility] OSC Family Hx: Family History Problem Relation Age of Onset Hypertension Father Prostate Cancer Father 73 metastatic to bone Diabetes Sister Strabismus Sister Amblyopia Sister Breast Cancer Maternal Aunt 60 in her 60s Stomach Cancer Paternal Grandmother 37 at 37 Leukemia Maternal Grandmother 90 Leukemia Paternal Uncle 55 Colorectal Cancer Paternal Aunt 75 Ovarian Cancer Paternal Aunt 75 Kidney Cancer Maternal Cousin 61 MGM's brother's daughter Glaucoma Neg Hx Cataracts Neg Hx Macular Degeneration Neg Hx Retinal Detachment Neg Hx Thyroid Disease Neg Hx Heart Disease Neg Hx Social Hx: Social History Tobacco Use Smoking status: Never Smokeless tobacco: Never Substance Use Topics Alcohol use: No Medications: Medications 10/17/23 1458 Medication Sig Taking? hydroCHLOROthiazide (HYDRODIURIL) 25 mg Tablet Take 25 mg by mouth as needed. Yes Allergies: Allergies Allergen Reactions Cephalexin Paxlovid (Eua) [Nirmatrelvir-Ritonavir] Throat swelling Review of Systems: All other ROS negative except as noted in HPI. Physical Exam: Vitals: Vitals: 10/17/23 1458 10/17/23 1500 BP: 137/86 (!) 127/91 BP Location (NBP): Left arm Right arm Patient Position: Sitting Sitting Pulse: 84 78 Weight: 79.8 kg (176 lb) 79.8 kg (176 lb) Height: 162.6 cm (5' 4) 162.6 cm (5' 4) General: NAD, appears well Neuro: Alert and oriented, motor sensory grossly intact Lungs: CTA Heart: RRR Abd: Soft, NT, ND, no palpable pulsatile masses Extremity - [place], warm, no ulceration, brisk capillary refill. Mild, nonpitting left ankle edema Vascular: R L Carotid 2/2 bruit (n) 2/2 bruit (n) Radial 2/2 2/2 Femoral 2/2 2/2 Popliteal 2/2 2/2 DP 2/2 2/2 PT 2/2 2/2 Labs/Studies: Recent Results (from the past 72 hour(s)) Duplex for DVT, Leg, Unilat Result Value Ref Range VB Text Report Department: Vascular Surgery Lab Patient: [id number] (DEV SIERRA) CPT: 16041 Referring Physician: JESSICA MALONE Phone: Indications: L ankle edema. Negative DVT exam by OSH. Findings: LEFT: Patent common femoral vein and popliteal vein with spontaneous, respirophasic Doppler waveforms that respond normally to augmentation maneuvers. The common femoral vein, saphenofemoral junction, femoral vein through the thigh and popliteal vein are fully compressible. Patent posterior tibial and peroneal veins with no evidence of thrombus. Interpretation: LEFT: No evidence of lower extremity deep venous thrombosis. Comparison: No previous study in our vascular lab database for comparison. VB Text Report End of Report Assessment/Plan: Ms. Sierra presents to clinic today with mild left ankle swelling. DVT study is negative today. She has no varicosities upon physical exam, and the swelling is mild, nearly unappreciable. She has a history of wearing knee high compression and is wearing ankle high compression in the clinic today. She currently does not elevate her legs throughout the day but does elevate them at night. We discussed the nature of venous insufficiency versus trauma causing some mild swelling. One of her primary complaints is that she feels an aching in the ankle (also above the ankle to the knee) that wasinjured in 2019. I do not believe venous insufficiency is the cause of her mild ankle swelling or aching. Additionally, she has no signs or symptoms of PAD and is a non-smoker. I advised her to follow-up with her PCP, wear knee-high compression stockings 20 to 30 mmHg to manage the swelling symptoms, and practice elevating her legs for 20 minutes x 3 times daily. She can follow-up as needed and contact the clinic with any questions or concerns. Elina Hanson APRN Department of Vascular Surgery documented in this encounter Plan of Treatment Upcoming Encounters Date Type Department Care Team (Late st Contact Info) Description 02/11/2024 2:15 PM EDT Office [place] [address] Julee Ibarra [facility] [place] [address] 02/15/2024 10:45 AM EDT Office [place] [address] Jian Carmichael MD [facility] [place] [address] 03/12/2024 8:00 AM EDT Appointment Mammography/[place] [address] Ting George, [facility] [place] [address] 03/12/2024 9:00 AM EDT Office Visit General Surgery at [address] Ting George [facility] [place] [address] Scheduled Referrals Name Type Priority Associated Diagnoses Orde r Schedule Referral to Vascular Surgery Outpatient Referral Routine Leg swelling Ordered: 10/01/2023 documented as of this encounter Visit Diagnoses Diagnosis Edema of lower extremity Edema documented in this encounter Care Teams Digital Production Artist Relationship Specialty Start Date End Date Nereida Sharif MD [address] [place] [address] PCP - General 04/26/10 documented as of this encounter
--- OUTSIDE RECORDS SUMMARY | 2024-02-01 01:35 | XMS_ITS | Encounter Summary ---
Author Organization [facility] [place] [place] [address] Care Team Providers Care Crime Lab Analyst Name Role Phone Nereida Sharif MD Primary Care Provider Encounter Details Date Type Department Care Team (Late st Contact Info) Description 01/11/2024 Interpretation Only Radiology [address] [place] [address] [place] [address] Unknown None Social History Tobacco Use Types Packs/Day Years Used Date Smoking Tobacco: Never Smokeless Tobacco: Never Alcohol Use Standard Drinks/Week Comments No 0 (1 standard drink = 0.6 oz pur e alcohol) [facility] Inpatient Questions Answer Date Recorded Does Anyone [...] 2:15 PM EDT Office Visit Gastroenterology at [facility] [place] [address] Julee Ibarra, [facility] [place] [address] 02/15/2024 10:45 AM EDT Office Visit General Surgery at [place] [address] Jian Carmichael MD [facility] [place] [address] 03/12/2024 8:00 AM EDT Appointment Mammography/DXA at [address] Ting George [facility] [place] [address] 03/12/2024 9:00 AM EDT Office Visit General Surgery at [place] [address] Ting George [facility] [place] [address] documented as of this encounter Procedures Procedure Name Priority Date/Time Associated Diagnosis Comments DH OR ENDOSCOPY Routine 01/11/2024 documented in this encounter Results * DH OR Endoscopy (01/11/2024) Anatomical Region Laterality Modality Other 01/11/2024 Narrative 01/11/2024 12:00 AM EDT Photographs - Images Procedure Note Unknown - 01/14/2024 Photographs - Images Unknown EA IMAGES documented in this encounter Visit Diagnoses Not on filedocumented in this encounter Care Teams Crime Lab Analyst Relationship Specialty Start Date End Date Nereida Sharif MD [address] [place] [address] [address] [place] [address] PCP - General 04/26/10 documented as of this encounter
--- OUTSIDE RECORDS SUMMARY | 2024-02-01 01:35 | XMS_ITS | Encounter Summary ---
Author Organization [facility] [place] [address] Care Team Providers Care Campaign Marketing Manager Name Role Phone Nereida Sharif MD Primary Care Provider [phone] Reason for Visit * Reason Comments Establish Care * Consultation (Routine) - Authorized Specialty Diagnoses / Procedures Referred By Contac t Referred To Contact General Surgery Diagnoses Calculus of gallbladder without cholecystitis without obstruction Abnormal results of liver function studies GALLSTONES AND ELEVATED LFT Nereida Sharif MD [address] [place] [address] [facility] [address] [place] [address] Referral ID Status Reason Start Date Expiration Date Visits Requested Visits Authorized [id number] Authorized Consult, Test & Treat PCP Updated and/or Approved 10/04/2023 10/03/2024 6 6 Encounter Details Date Type Department Care Team (Late st Contact Info) Description 10/26/2023 11:00 AM EDT Office [place] [address] Jian Carmichael MD [facility] [place] [address] Gallstones Social History Tobacco Use Types Packs/Day Years [...] Sign Reading Time Taken Comments Blood Pressure 138/91 10/26/2023 10:50 AM EDT Pulse 73 10/26/2023 10:50 AM EDT Temperature 36.4 ??C (97.6 ??F) 10/26/2023 10:50 AM E DT Respiratory Rate 16 10/26/2023 10:50 AM EDT Oxygen Saturation 100% 10/26/2023 10:50 AM EDT Inhaled Oxygen Concentration - - Weight 80.5 kg (177 lb 6.4 oz) 10/26/2023 10:50 AM EDT Height 162.6 cm (5' 4.02) 10/26/2023 10:50 AM E DT Body Mass Index 30.44 10/26/2023 10:50 AM EDT documented in this encounter Progress Notes * Jian Carmichael MD - 10/26/2023 11:00 AM EDT Images from the original note were not included. Kassandra Sierra is a 58 y.o. female referred by Nereida Sharif MD for symptomatic gallstones. She has had multiple episodes of acute abdominal pain for several years now. These episodes, which typically last anywhere from 30 minutes to several hours and happen a few times a week, are manifest by right upper quadrant pain, which often radiates to the back and right shoulder. The episodes are post-prandial and sometimes will awaken her at night. She denies jaundice or dark urine. She reports occasional pale stools and irregular stools. Recently she was noted to also have elevated liverfunction tests and so had a right upper quadrant ultrasound which showed stones. Past Medical History: Patient Active Problem List Diagnosis Code Extremely dense tissue of both breasts on mammography R92.343 Atypical lobular hyperplasia of left breast N60.92 Radial scar of left breast N64.89 At high risk for breast cancer Z91.89 Past Surgical History: Procedure Laterality Date BREAST BIOPSY Left 01/2019 needle loc; atypical hyperplasia BREAST CYST EXCISION Left 01/2019 atypical hyperplasia MAMMO STEREOTACTIC BIOPSY LEFT N/A 12/09/2018 Mammo Stereotactic Biopsy Left 12/09/2018 [facility] RAD MAMMOGRAPHY PRO EXCISE BREAST LES W XRAY MARKER Left 01/31/2019 EXCISION LESION, BREAST W/ PREOP.MARKER (NEEDLE LOC.) (WRVU 6.69) performed by Carleen Magdaleno MD at [facility] OSC Medications: Current Outpatient Medications on File Prior to Visit Medication Sig Dispense Refill hydroCHLOROthiazide (HYDRODIURIL) 25 mg Tablet Take 25 mg by mouth as needed. No current facility-administered medications on file prior to visit. Allergies: Cephalexin and Paxlovid (eua) [nirmatrelvir-ritonavir] Family History: Family History Problem Relation Age of Onset [...] Neg Hx Heart Disease Neg Hx Social History: reports that she has never smoked. She has never used smokeless tobacco. She reports that she does not drink alcohol and does not use drugs. 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 Review of Systems: Review of systems is negative for any unexplained weight loss or weight gain. She denies any cough,chest pain or shortness on breath on exertion. She has no fevers, chills or night sweats. She denies headaches, dizziness, weakness, numbness or ataxia. Bowel and bladder elimination is normal. Otherwise all other symptoms are negative on a complete review of systems. On physical examination: Vital signs: .LMP (LMP Unknown) Comment: no longer having menstrual cycle Constitutional/General: this is a well appearing female. Psych: affect normal Skin: no rash Neuro: strength and movements grossly intact Eyes/ENT: no scleral icterus or jaundice. Mucous membranes are moist. Respiratory/lungs: clear to auscultation. Cardiovascular/Heart: regular, rate, and rhythm and without murmurs. GI/abdomen: nontender and without palpable masses or hernias Musculoskeletal/extremity: grossly normal, no peripheral edema Ultrasound [facility] 10/03/23 Impression. Symptomatic gallstones. Because of the frequency of biliary colic, I agree that laparoscopic cholecystectomy is indicated. The majority of this visit was spent discussing the natural history of gallstone disease and reasonsfor considering laparoscopic cholecystectomy (to eliminate current symptoms and prevent future compl ications). I explained that occasionally bile duct exploration or postoperative ERCP is required toclear the biliary tree. I explained the risks of surgery include but are not limited to major bleeding, infection, bile duct injury or bile leak, retained stones, pancreatitis, conversion to open, and cardiopulmonary complications. Overall, she seems well informed and wishes to proceed with surgery. Preparation needed prior to surgery: 2 week preoperative liver diet (if BMI > 30 or fatty liver on ultrasound) - BMI 30 - provided with diet. 30 minutes spent in review of records, imaging, evaluation, and discussion with patient as detailedabove. documented in this encounter Plan of Treatment Upcoming Encounters Date Type Department Care Team (Late st Contact Info) Description 02/11/2024 2:15 PM EDT Office Visit Gastroenterology at [place] [address] Julee Ibarra [facility] [place] [address] 02/15/2024 10:45 AM EDT Office Visit General Surgery at [place] [address] Jian Carmichael MD [facility] [place] [address] 03/12/2024 8:00 AM EDT Appointment Mammography/[place] [address] Ting George, [facility] [place] [address] 03/12/2024 9:00 AM EDT Office Visit General Surgery at [place] [address] Ting George [facility] [place] [address] Scheduled Referrals Name Type Priority Associated Diagnoses Orde r Schedule Referral to General Surgery Outpatient Referral Routine Calculus of gallbladder without cholecystitis without obstruction Abnormal results of liver function studies Ordered: 10/11/2023 documented as of this encounter Visit Diagnoses Diagnosis Gallstones Calculus of gallbladder without mention of cholecystitis or obstruction documented in this encounter Care Teams Campaign Marketing Manager Relationship Specialty Start Date End Date Nereida Sharif MD [address] [place] [address] PCP - General 04/26/10 documented as of this encounter
--- OUTSIDE RECORDS SUMMARY | 2024-02-01 01:35 | XMS_ITS | Encounter Summary ---
Author Organization [facility] [address] Care Team Providers Care Emergency Communications Officer Name Role Phone Nereida Sharif MD Primary Care Provider [phone] Reason for Referral * Consultation (Routine) - Closed Specialty Diagnoses / Procedures Referred By Contac t Referred To Contact Vascular Surgery Diagnoses Leg swelling Nereida Sharif MD [address] [place] [address] [facility] Vascular Surg [address] [place] [address] Referral ID Status Reason Start Date Expiration Date V isits Requested Visits Authorized [id number] Closed Consult, Test & Treat 10/01/2023 09/30/2024 1 1 Encounter Details Date Type Department Care Team (Late st Contact Info) Description 10/01/2023 Transcribe Orders eDH Incoming Referrals [phone] Nereida Shairf MD [address] [place], [place] [id number] Leg swelling Social History Tobacco Use Types Packs/Day Years [...] EDT Office Visit Gastroenterology at [place] [address] Julee Ibarra [facility] [place] [address] 02/15/2024 10:45 AM EDT Office Visit General Surgery at [place] [address] Jian Carmichael MD [facility] [place] [address] 03/12/2024 8:00 AM EDT Appointment Mammography/DXA at [place] [address] Ting George, [facility] [place] [address] 03/12/2024 9:00 AM EDT Office Visit General Surgery at [place] [address] Ting George [facility] [place] [address] Scheduled Referrals Name Type Priority Associated Diagnoses Orde r Schedule Referral to Vascular Surgery Outpatient Referral Routine Leg swelling Ordered: 10/01/2023 documented as of this encounter Visit Diagnoses Diagnosis Leg swelling Swelling of limb documented in this encounter Care Teams Emergency Communications Officer Relationship Specialty Start Date End Date Nereida Sharif MD [address] [place] [address] PCP - General 04/26/10 documented as of this encounter
--- OUTSIDE RECORDS SUMMARY | 2024-02-01 01:35 | XMS_ITS | Encounter Summary ---
Author Organization [facility] [place] [address] Care Team Providers Care Artillery Or Naval Gunfire Observer Name Role Phone Nereida Sharif MD Primary Care Provider [phone] Reason for Referral * Diagnostic Test (Routine) - Closed Specialty Diagnoses / Procedures Referred By Contac t Referred To Contact Diagnoses Edema of lower extremity Procedures Duplex for DVT, Leg, Unilat Jessica Martin APRN [facility] [place] [address] [facility] Vascular Lab [address], [place] [address] Referral ID Status Reason Start Date Expiration Date V isits Requested Visits Authorized [id number] Closed Specialty Service Requested 10/03/2023 10/02/2024 1 1 Encounter Details Date Type Department Care Team (Late st Contact Info) Description 10/03/2023 Orders [place] [address] Jessica Martin INSTANT POWDER SUPERVISOR [facility] [place] [address] Edema of lower extremity Social [...] 2:15 PM EDT Office Visit Gastroenterology at [place] [phone] Julee Ibarra [facility] [place] [address] 02/15/2024 10:45 AM EDT Office Visit General Surgery at [place] [phone] Jian Carmichael MD [facility] [place] [address] 03/12/2024 8:00 AM EDT Appointment Mammography/DXA at [place] [phone] Ting George, [facility] [place] [address] 03/12/2024 9:00 AM EDT Office Visit General Surgery at [place] [phone] Ting George, [facility] [place] [address] documented as of this encounter Results * Duplex for DVT, Leg, Unilat (2023 2:04 PM EDT) VB Text Report Department: Vascular Surgery Lab Patient: [id number] (AJITH SIERRAN) CPT: [id number] Referring Physician: JESSICA MARTIN ?? Phone: Indications: [...] Edema documented in this encounter Care Teams Artillery Or Naval Gunfire Observer Relationship Specialty Start Date End Date Nereida Sharif MD [address] [place] [address] PCP - General 04/26/10 documented as of this encounter
--- OUTSIDE RECORDS SUMMARY | 2024-02-01 01:36 | XMS_ITS | Encounter Summary ---
Author Organization [facility] [place] [address] Care Team Providers Care Land Mobile Radio Technician Name Role Phone Nereida Sharif MD Primary Care Provider [phone] Reason for Visit * Reason Onset Date Comments Other 03/29/2023 Spoke to patient to discuss setting up MRI Breast wwo contrast that was ordered 02/26/23 to be set up Aug 2023 ordered by SUSAN George. Encounter Details Date Type Department Care Team (Late st Contact Info) Description 03/29/2023 [place] [phone] Grace Workman RN Other (Spoke to patient to discuss setting up MRI Breast wwo contrast that was ordered 02/26/23 to be set up Aug 2023 ordered by SUSAN George.) Social History Tobacco Use Types Packs/Day Years [...] encounter Miscellaneous Notes * Telephone Encounter - Grace Workman RN - 03/29/2023 3:17 PM EDT Spoke to patient to discuss setting up MRI Breast wwo contrast that was ordered 02/26/23 to be set up Aug 2023 ordered by SUSAN George. Call transferred to [facility] to set up. documented in this encounter Plan of Treatment Upcoming Encounters Date Type Department Care Team (Late st Contact Info) Description 02/11/2024 2:15 PM EDT Office Visit Gastroenterology at [place] [address] Julee Ibarra [facility] [place] [address] 02/15/2024 10:45 AM EDT Office Visit General Surgery at [place] [address] Jian Carmichael MD [facility] [place] [address] 03/12/2024 8:00 AM EDT Appointment Mammography/DXA at [place] [address] Ting George, [facility] [place] [address] 03/12/2024 9:00 AM EDT Office Visit General Surgery at [place] [address] Ting George [facility] [place] [address] documented as of this encounter Visit Diagnoses Not on filedocumented in this encounter Care Teams Land Mobile Radio Technician Relationship Specialty Start Date End Date Nereida Sharif MD [address] [place] [place] [address] PCP - General 04/26/10 documented as of this encounter
--- OUTSIDE RECORDS SUMMARY | 2024-02-01 01:36 | XMS_ITS | Encounter Summary ---
[place] [address] Care Team Providers Care Project Architect Name Role Phone Nereida Sharif MD Primary Care Provider [phone] Encounter Details Date Type Department Care Team (Latest Contact Info) Description 01/07/2020 10:13 AM EDT - 01/07/2020 11:59 PM EDT Hospital Encounter Hematology [place] [phone] Family history of breast cancer; FH: ovarian cancer; FH: GI cancer Discharge Disposition: Home Social History Tobacco Use [...] AM EST documented as of this encounter Medications at Time of Discharge Medication Sig Dispensed Refills Start Date End Date hydroCHLOROthiazide (HYDRODIURIL) 25 mg Tablet Take 25 mg by mouth as needed. triamcinolone (KENALOG) 0.1 % Cream APPLY TWICE A DAY TO FOOT 0 02/11/2019 07/19/2020 documented as of this encounter Plan of Treatment Upcoming Encounters Date Type Department Care Team (Late st Contact Info) Description 02/11/2024 2:15 PM EDT Office [place] [phone] Julee Ibarra, [facility] [place] [address] 02/15/2024 10:45 AM EDT Office [place] [phone] Jian Carmichael MD [facility] [place] [address] 03/12/2024 8:00 AM EDT Appointment Mammography/[place] [phone] Ting George, [facility] [place] [address] 03/12/2024 9:00 AM EDT Office [place] [phone] Ting George, [facility] [place] [address] documented as of this encounter Procedures Procedure Name Priority Date/Time Associated Diagnosis Comments RESEARCH VENIPUNCTURE Routine 01/07/2020 10:28 AM EDT Family history of breast cancer FH: ovarian cancer FH: GI cancer documented in this encounter Results * Research Venipuncture (01/07/2020 10:28 AM EDT) Research Venipuncture Drawn [facility] Blood specimen (specimen) 01/07/2020 10:28 AM EDT 01/07/2020 10:39 AM EDT Narrative Resulting Agency Comment Spec In Lab Ayad Barnes MD CHEMISTRY ORDERABLES [facility] [place] [address] documented in this encounter Visit Diagnoses Diagnosis Family history of breast cancer Family history of malignant neoplasm of breast FH: ovarian cancer Family history of malignant neoplasm of ovary FH: GI cancer Family history of malignant neoplasm of gastrointestinal tract documented in this encounter Care Teams Project Architect Relationship Specialty Start Date End Date Nereida Sharif MD [address] [place] [address] PCP - General 04/26/10 documented as of this encounter
--- OUTSIDE RECORDS SUMMARY | 2024-02-01 01:36 | XMS_ITS | Encounter Summary ---
[place] [address] Care Team Providers Care Gambling Floor Supervisor Name Role Phone Nereida Sharif MD Primary Care Provider Reason for Referral * Diagnostic Test (Routine) - Closed Specialty Diagnoses / Procedures Referred By Shellie davis Referred To Contact Radiology Diagnoses Atypical lobular hyperplasia of left breast Radial scar of left breast Dense breast tissue on mammogram At high risk for breast cancer Breast cancer screening, high risk patient Procedures MRI Breast wwo Contrast Ting Stokes APRN [facility] [place] [address] [place] [address] Referral ID Status Reason Start Date Expiration Date V isits Requested Visits Authorized [id number] Closed Specialty Service Requested 02/26/2023 08/26/2024 1 1 Reason for Visit * Diagnostic Test (Routine) - Closed Specialty Diagnoses / Procedures Referred By Shellie davis Referred To Contact Radiology Diagnoses Atypical lobular hyperplasia of left breast Radial scar of left breast Dense breast tissue on mammogram At high risk for breast cancer Breast cancer screening, high risk patient Procedures MRI Breast wwo Contrast Ting Stokes APRN [facility] [place] [address] [place] [address] Referral ID Status Reason Start Date Expiration Date V isits Requested Visits Authorized [id number] Closed Specialty Service Requested 02/26/2023 08/26/2024 1 1 Encounter Details Date Type Department Care Team (Latest Contact Info) Description 08/27/2023 7:26 AM EDT - 08/27/2023 11:59 PM EDT [place] [phone] Ting George ARTIFICIAL FLOWERS SUPERVISOR [facility] [place] [address] Atypical lobular hyperplasia of left breast; Radial scar of left breast; Dense breast tissue on mammogram; At high risk for breast cancer; Breast cancer screening, high risk patient Discharge Disposition: Home Social History Tobacco Use [...] as needed. documented as of this encounter Plan of Treatment Upcoming Encounters Date Type Department Care Team (Late st Contact Info) Description 02/11/2024 2:15 PM EDT Office [place] [address] Julee Ibarra [facility] [address] 02/15/2024 10:45 AM EDT Office [place] [phone] Jian Carmichael MD [facility] [place] [address] 03/12/2024 8:00 AM EDT Appointment Mammography/[place] [phone] Ting George APRN [facility] [place] [address] 03/12/2024 9:00 AM EDT Office [place] [phone] Ting George APRN [facility] [place] [address] documented as of this encounter Procedures Procedure Name Priority Date/Time Associated Diagnosis Comments MRI BREAST WWO CONTRAST BILAT Routine 08/27/2023 8:52 AM EDT Atypical lobular hyperplasia of left breast Radial scar of left breast Dense breast tissue on mammogram At high risk for breast cancer Breast cancer screening, high risk patient documented in this encounter Results * MRI Breast wwo Contrast Bilat (08/27/2023 8:52 AM EDT) Anatomical Region Laterality Modality Breast Bilateral Magnetic Resonan ce Impressions 08/27/2023 2:27 PM EDT No evidence malignancy RECOMMENDATION:Continued high-risk screening LEFT BREAST BI-RADS Category 2: Benign Findings RIGHT BREAST BI-RADS Category 2: Benign Findings Thank you for letting us participate in the care of this patient. ??If you are a health care provider and have any questions regarding this report, please contact the number below. ??For patients who have questions please contact the health respiratory care faculty that requested your imaging first. ? Narrative 08/27/2023 2:27 PM EDT BILATERAL BREAST MRI CLINICAL INDICATION: Breast high risk screening. History of LEFT breast ALMike Cain lifetime risk ratio 59.8% TECHNIQUE: Multiplanar sequences were obtained pre- and post- Dotarem enhancement, to include SPGR weighted dynamic run-off and subtraction sequences obtained after the intravenous administration of 17 ccs of Dotarem. Computer algorithm analysis for lesion detection and kinetic contrast enhancement curve analysis was performed, using [employer] software. COMPARISON STUDIES: Compared and/or correlated with prior studies including breast MRIs from 2020, 2021 and 2022, mammogram from 02/26/2023. FINDINGS: Background Enhancement Pattern (first post Dotarem image): Moderate (50-75% breast) Amount of Fibroglandular Tissue: Extreme fibroglandular tissue LEFT Breast:Stable T2 bright 0.8 enhancing mass in the upper outer quadrant of the LEFT breast, consistent with a fibroadenoma. Scattered T2 bright foci consistent with fibrocystic disease/hormonal changes RIGHT Breast:Scattered T2 bright foci consistent with fibrocystic disease/hormonal changes Lymph Node Basins/Other: There is no evidence of internal mammary or axillary adenopathy.. No significant abnormalities are seen in the chest wall or skin.. Ting George APRN [facility] [place] documented in this encounter Visit Diagnoses Diagnosis Atypical lobular hyperplasia of left breast Radial scar of left breast Dense breast tissue on mammogram At high risk for breast cancer Breast cancer screening, high risk patient Screening mammogram for high-risk patient documented in this encounter Administered Medications Inactive Administered Medications - up to 3 most recent administrations Medication Order MAR Action Action Date Dose Rate Site gadoterate meglumine (Dotarem) (0.5 mMol/mL) injection solution 0-100 mL 0-100 mL, Intravenous, ONCE PRN, 1 dose, Starting on 08/27/23 at 0850, Until Sun08/27/23 at 0850, Per Protocol, Radiology Contrast, Routine Given 08/27/2023 8:50 AM EDT 17 mLs documented in this encounter Care Teams Gambling Floor Supervisor Relationship Specialty Start Date End Date Nereida Sharif MD [address] [facility] [address] [facility] [address] [place] [address] PCP - General 04/26/10 documented as of this encounter
--- OUTSIDE RECORDS SUMMARY | 2024-02-01 01:36 | XMS_ITS | Encounter Summary ---
[place] [address] Care Team Providers Care Pearler Name Role Phone Nereida Sharif MD Primary Care Provider [phone] Reason for Referral * Diagnostic Test (Routine) - Closed Specialty Diagnoses / Procedures Referred By Shellie davis Referred To Contact Radiology Diagnoses Atypical lobular hyperplasia of left breast Radial scar of left breast Dense breast tissue on mammogram At high risk for breast cancer Breast cancer screening, high risk patient Procedures MRI Breast wwo Contrast Ting Stokes APRN [facility] [place] [address] [place] [address] Referral ID Status Reason Start Date Expiration Date V isits Requested Visits Authorized [id number] Closed Specialty Service Requested 01/25/2021 07/28/2022 1 1 Reason for Visit * Diagnostic Test (Routine) - Closed Specialty Diagnoses / Procedures Referred By Shellie davis Referred To Contact Radiology Diagnoses Atypical lobular hyperplasia of left breast Radial scar of left breast Dense breast tissue on mammogram At high risk for breast cancer Breast cancer screening, high risk patient Procedures MRI Breast wwo Contrast Ting Stokes APRN [facility] [place] [address] [place] [address] Referral ID Status Reason Start Date Expiration Date V isits Requested Visits Authorized [id number] Closed Specialty Service Requested 01/25/2021 07/28/2022 1 1 Encounter Details Date Type Department Care Team (Latest Contact Info) Description 07/18/2021 10:23 AM EST - 07/18/2021 11:59 PM EST Hospital [place] [address] Ting George [facility]F [facility] GENER[place] [address] Atypical lobular hyperplasia of left breast; Radial scar of left breast; Dense breast tissue on mammogram; At high risk for breast cancer; Breast cancer screening, high risk patient (Not by Mammogram) Discharge Disposition: Home Social History Tobacco Use [...] 2:15 PM EDT Office Visit [place] [address] Julee Ibarra CHEF [facility] [place] [address] 02/15/2024 10:45 AM EDT Office [place] [address] Jian Carmichael MD [facility] GENER[place] [address] 03/12/2024 8:00 AM EDT Appointment Mammography/[place] [phone] Ting George APRN [facility] GENER[place] [address] 03/12/2024 9:00 AM EDT Office Visit [place] [phone] Ting George APRN [facility] [address] [place] [address] documented as of this encounter Procedures Procedure Name Priority Date/Time Associated Diagnosis Comments MRI BREAST WWO CONTRAST BILAT Routine 07/18/2021 12:00 PM EST Atypical lobular hyperplasia of left breast Radial scar of left breast Dense breast tissue on mammogram At high risk for breast cancer Breast cancer screening, high risk patient (Not by Mammogram) documented in this encounter Results * MRI Breast wwo Contrast Bilat (07/18/2021 12:00 PM EST) Anatomical Region Laterality Modality Breast Bilateral Magnetic Resonan ce Impressions 07/18/2021 1:29 PM EST No MRI evidence of malignancy. RECOMMENDATION:Continue high risk screening. BI-RADS Category 2: Benign Findings Thank you for letting us participate in the care of this patient. ??If you are a health care provider and have any questions regarding this report, please contact the number below. ??For patients who have questions please contact the health emergency care attendant that requested your imaging first. ? Electronically signed by: Cris Wilson MD, [facility] ([phone]), at 07/18/2021 1:29 PM Narrative 07/18/2021 1:29 PM EST MRI OF THE BILATERAL BREAST(S) CLINICAL INDICATION: ??High risk screening, extremely dense breast tissue and personal history of atypical lobular hyperplasia. TECHNIQUE: Multiplanar sequences were obtained pre- and post- gadolinium enhancement, to include SPGR weighted dynamic run-off and subtraction sequences obtained after the intravenous administration of 16 ccs of Dotarem. Computer algorithm analysis for lesion detection and kinetic contrast enhancement curve analysis was performed, using [employer] software. COMPARISON STUDIES: This study was compared with prior images. Specifically prior MRI 07/19/2020 and mammogram 01/25/2021 BACKGROUND ENHANCEMENT PATTERN (first post gadolinium image) Moderate (50-75% breast) AMOUNT OF FIBROGLANDULAR TISSUE: Extreme FINDINGS: There are no morphologic abnormalities or areas of abnormal parenchymal enhancement. There is no axillary or internal mammary adenopathy. Incidental note is made of the staple T2 bright enhancing lesion in the left upper outer quadrant posteriorly and the stable sternal lesion, consistent with a benign process. Ting Oanh George APRN [facility] [place] documented in this encounter [...] Intravenous, ONCE PRN, 1 dose, Starting on Sun07/18/21 at 1133, Until Sun07/18/21 at 1146, Per Protocol, Radiology Contrast, Routine Given 07/18/2021 11:46 AM EST 16 mLs documented in this encounter Care Teams Pearler Relationship Specialty Start Date End Date Nereida Sharif MD [address] [place] [address] [address] [facility] [address] [place] [address] PCP - General 04/26/10 documented as of this encounter
--- OUTSIDE RECORDS SUMMARY | 2024-02-01 01:36 | XMS_ITS | Encounter Summary ---
[place] [address] Care Team Providers Care Retail Service Lead Merchandiser Name Role Phone Nereida Sharif MD Primary Care Provider [phone] Reason for Visit * Auth/Cert Specialty Diagnoses / Procedures Referred By Contac t Referred To Contact Diagnoses [facility] Procedures PRO EXCISE BREAST LES W XRAY MARKER EXCISION LESION, BREAST W/ PREOP.MARKER (NEEDLE LOC.) (WRVU 6.69) MODIFIER WITH NEEDLE LOC., LESION #1 Referral ID Status Reason Start Date Expiration Date Visits Re quested Visits Authorized [id number] 1 1 Encounter Details Date Type Department Care Team (Late st Contact Info) Description 01/31/2019 2:10 PM EDT Anesthesia Event [place] [address] Rosy Clemente DO [facility] DR [place] [address] Gio Ha MD [facility] [place] [address] Anesthesia Record Procedure Summary Procedure Name Responsible Anesthesiologist Anesthesia Start Time Anesthesia Stop Time EXCISION LESION, BREAST W/ PREOP.MARKER (NEEDLE LOC.) (WRVU 6.69) (Left: Breast) Rosy Clemente DO 01/31/19 1410 01/31/19 1537 Events Date Time Event Comment 01/31/2019 1256 1410 AN Verify 1410 Start 1410 An Start Data 1416 Anesthesia Ready 1427 Break/Relief In HERIBERTO L TICKN OR, LUNCH COOK 1430 Procedure Start 1440 Break/Relief Out 1532 an stop data 1537 Recovery or ICU Handoff Ambreen ent care was transferred to the destination unit staff after review of the patient's medical history, current anesthetic/surgical status and plan, according to the Provider Handoff Checklist. 1537 Stop Meds Name Total Midazolam 2 mg fentaNYL 100 mcg IV Lidocaine 40 mg Propofol INF 388.96 mg PHENYLephrine 120 mcg ceFAZolin (ANCEF) 2g in dextrose 5% 100 mL 2 g lactated ringers infusion 500 mL * Agents Name O2 Air N2O O2 Auxiliary Flowmeter 1 * Blood No blood administrations on file. Lines, Drains, and Airways Type Details Placement Removal (RETIRED) Peripheral IV Line - Single Lumen 01/31/19; 1215; metacarpal vein (top of hand), right; [id number]-tjj-kjpouk catheter system; 22 gauge, 1/2 in length; 03/09/21 (LDA Cleanup utility RA#[id number]); 1650 (LDA Cleanup utility RA#[id number]) 01/31/19 1215 by Maxine Harris RN 03/09/21 1650 by Julien Serrano (RETIRED) Peripheral IV Line - Single Lumen 01/31/19; 1225; metacarpal vein (top of hand), right; vhwi-ikq-uwmqjk catheter system; 22 gauge, 1/2 in length; no longer indicated; 01/31/19; 1614 01/31/19 1225 by Maxine Harris RN 01/31/19 1614 by Gretchen Flower RN Incision 01/31/19; 1430; breast; 01/30/22 (LDA cleanup utility RA#[id number]); 1715 (LDA cleanup utility RA#[id number]) 01/31/19 1430 by Leonora Arteaga RN 01/30/22 1715 by Lashae Gillette documented in this encounter Social History Tobacco [...] OR Notes * Anesthesia Postprocedure Evaluation - Rosy Clemente DO - 01/31/2019 4:06 PM EDT Department of Anesthesiology Post-procedure Note Patient: Kassandra Sierra Procedure Summary Date: 01/31/19 Room / Location: [address] Anesthesia Start: 1410 Anesthesia Stop: 153 Procedures: EXCISION LESION, BREAST W/ PREOP.MARKER (NEEDLE LOC.) (WRVU 6.69) (Left Breast) MODIFIER WITH NEEDLE LOC., LESION #1 (N/A ) Diagnosis: (AL) Surgeon: Carleen Magdaleno MD Responsible Provider: Rosy Clemente DO Anesthesia Type: MAC ASA Status: 2 All Anesthesia Providers: Anesthesiologist: Rosy Clemente DO LUNCH COOK: Grace Price CRNA Vitals Value Taken Time BP 127/87 01/31/2019 4:02 PM Temp Pulse 63 01/31/2019 4:02 PM Resp 18 01/31/2019 4:02 PM SpO2 98 % 01/31/2019 4:02 PM Pain Level 0 01/31/2019 4:02 PM Patient Location: PACU/[facility] Level of Consciousness: Awake and Alert Pain Management: Satisfactory Analgesia PONV: None Cardiovascular Status: Hemodynamically Stable Respiratory Status: Stable Respiratory Status and Room Air Postoperative Fluid Status: Intravascular EUvolemia Possible Anesthetic Complications: NONE apparent at time of evaluation Final Primary Anesthesia Type: MAC (The anesthetic type performed was the same as planned.) Comments: * Anesthesia Preprocedure Evaluation - Rosy Clemente DO - 01/30/2019 1:52 PM EDT Pre-Anesthesia Evaluation for: Kassandra Sierra a 53 y.o. female. Procedure(s): EXCISION LESION, BREAST W/ PREOP.MARKER (NEEDLE LOC.) (WRVU 6.69) MODIFIER WITH NEEDLE LOC., LESION #1 Patient Active Problem List Diagnosis ??? Central serous chorioretinopathy Past Medical History: Diagnosis Date ??? Amblyopia OS ??? 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 Neuromuscular disorder Herniated cervical ??? Strabismus Past Surgical History: Procedure Laterality Date ??? MAMMO STEREOTACTIC BIOPSY LEFT N/A 12/09/2018 Mammo Stereotactic Biopsy Left 12/09/2018 [facility] RAD MAMMOGRAPHY Social History Tobacco Use ??? Smoking status: Never Smoker ??? Smokeless tobacco: Never Used Substance Use Topics ??? Alcohol use: No Social History Substance and Sexual Activity Drug Use No No Known Allergies Medications: MAR and/or home medications have been reviewed. Physical Exam: There were no vitals filed for this visit. There is no height or weight on file to calculate BMI. Airway Assessment: Mallampati: I TM distance: >3 FB Neck ROM: full Cardiovascular Assessment: Rhythm: regular Rate: normal Pulmonary Assessment: breath sounds clear to auscultation Dental Assessment: Comment: Without loose dentition Misc Assessment: Patient is wearing No contact(s). IV access: Peripheral line Anesthesia Plan: ASA 2 MAC, with a(n) intravenous induction 53 yr old for needle localization and left breast biopsy. PMH: htn NPO Patient recently broke a bone in her left foot. She is wearing a boot. I have discussed the risks of DVT/PE after immobilization from a fracture. She understand that it is important for her to minimize her risk for DVT/PE. We discussed the benefits of MAC vs General and she is ok with trying MAC. General as back up plan. During her recovery she will keep mobile and flex her ankle as much as possible. Region - Other Informed Consent: Anesthetic plan and risks discussed with patient. Plan discussed with LUNCH COOK and attending. PAT Clinic Note documented in this encounter Plan of Treatment Upcoming Encounters Date Type Department Care Team (Late st Contact Info) Description 02/11/2024 2:15 PM EDT Office [place] [address] Julee Ibarra, PHARMACIST APPRENTICE [facility] [place] [address] 02/15/2024 10:45 AM EDT Office Visit General Surgery at [place] [phone] Jian Carmichael MD [facility] [place] [address] 03/12/2024 8:00 AM EDT Appointment Mammography/[place] [phone] Ting George APRN [facility] [place] [address] 03/12/2024 9:00 AM EDT Office [place] [phone] Ting George PHARMACIST APPRENTICE [facility] [place] [address] documented as of this encounter Visit Diagnoses Not on filedocumented in this encounter Administered Medications Inactive Administered Medications - up to 3 most recent administrations Medication Order MAR Action Action Date Dose Rate Site ceFAZolin (ANCEF) 2g in dextrose 5% 100 mL 2 g, Intravenous, EVERY 3 HOURS, 1 dose, First dose on Sun01/31/19 at 1215, Administer over 30 Minutes, Intra-Operative (Intra-Procedure), Indication for (Active or Suspected): Prophylaxis Given 01/31/2019 2:16 PM EDT 2 g fentaNYL 50 mcg/mL multi-dose injection PRN, Starting on Sun01/31/19 at 1410, Until Sun01/31/19 at 1537, Anesthesia Intra-op, Routine Given 01/31/2019 2:54 PM EDT 25 mcg Given 01/31/2019 2:52 PM EDT 25 mcg Given 01/31/2019 2:10 PM EDT 50 mcg lidocaine (PF) (XYLOCAINE) 100 mg/5 mL (2 %) injection PRN, Starting on Sun01/31/19 at 1413, Until Sun01/31/19 at 1537, Anesthesia Intra-op, Routine Given 01/31/2019 2:13 PM EDT 40 mg midazolam (PF) (VERSED) multi-dose injection PRN, Starting on Sun01/31/19 at 1410, Until Sun01/31/19 at 1537, Anesthesia Intra-op, Routine Given 01/31/2019 2:12 PM EDT 1 mg Given 01/31/2019 2:10 PM EDT 1 mg PHENYLephrine in NS (PF) (JESSICA-SYNEPHRINE) 0.8 mg/10 mL (80 mcg/mL) multi-dose injection Syrg PRN, Starting on Sun01/31/19 at 1507, Until Sun01/31/19 at 1537, Anesthesia Intra-op, Routine Given 01/31/2019 3:16 PM EDT 80 mcg Given 01/31/2019 3:07 PM EDT 40 mcg propofol (DIPRIVAN) infusion CONTINUOUS PRN, Starting on Sun01/31/19 at 1413, Until Sun01/31/19 at 1537, Anesthesia Intra-op, Routine Rate/Dose Change 01/31/2019 3:02 PM EDT 50 mcg/kg/min 22.4 mL/hr Rate/Dose Change 01/31/2019 2:18 PM EDT 75 mcg/kg/min 33.7 mL/hr New Bag 01/31/2019 2:13 PM EDT 150 mcg/kg/min 67.3 mL/h r documented in this encounter Care Teams Retail Service Lead Merchandiser Relationship Specialty Start Date End Date Nereida Sharif MD [address] [place] [address] [address] [facility] [address] [place] [address] PCP - General 04/26/10 documented as of this encounter
--- OUTSIDE RECORDS SUMMARY | 2024-02-01 01:36 | XMS_ITS | Encounter Summary ---
Author Organization [facility] [place] [address] Care Team Providers Care Desk Maker Name Role Phone Nereida Sharif MD Primary Care Provider [phone] Reason for Visit * Consultation (Routine) - Closed Specialty Diagnoses / Procedures Referred By Contac t Referred To Contact Hematology and Oncology Diagnoses Abnormal finding on imaging Nereida Sharif MD [address] [place] [place] [address] [facility] Onc [address] [place] [address] Referral ID Status Reason Start Date Expiration Date Visits Re quested Visits Authorized [id number] Closed 11/26/2018 11/26/2019 1 1 Encounter Details Date Type Department Care Team (Late st Contact Info) Description 01/22/2019 10:45 AM EDT Office Visit H[place]ology [place] [address] [facility] [place] [place] [address] Abnormal mammogram Social History Tobacco Use Types Packs/Day Years [...] Sign Reading Time Taken Comments Blood Pressure 114/75 01/22/2019 10:55 AM EDT Pulse 87 01/22/2019 10:55 AM EDT Temperature 36.8 ??C (98.3 ??F) 01/22/2019 10:55 AM E DT Respiratory Rate 18 01/22/2019 10:55 AM EDT Oxygen Saturation 99% 01/22/2019 10:55 AM EDT Inhaled Oxygen Concentration - - Weight 75.8 kg (167 lb) 01/22/2019 10:55 AM EDT Height 164.1 cm (5' 4.61) 01/22/2019 10:55 AM E DT Body Mass Index 28.13 01/22/2019 10:55 AM EDT documented in this encounter Progress Notes * Carleen Magdaleno MD - 01/22/2019 10:45 AM EDT Subjective: Patient ID: Kassandra Sierra is a 53 y.o. female. RENA Cannon is seen in surgical consultation at the request of Dr. Wilson. She presents to discuss a recent abnormal mammogram and possible excisional biopsy to rule out occult malignancy. Kassandra presented for screening mammogram . This revealed a suspicious spiculated mass in the upperouter left breast. Call back views confirmed a highly suspicious, spiculated 1cm mass. Of note, theright breast was normal. Biopsy revealed radial scar with focal, incidental ALH. Kassandra presents to discuss excision. She has no prior breast biopsies. She denies any known masses, skin changes, nipple discharge or adenopathy. Past Medical History: Diagnosis Date ??? Amblyopia OS ??? 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 Neuromuscular disorder Herniated cervical ??? Strabismus HTN SH: . Non smoker. Denies etoh use. Review of Systems Constitutional: Negative. HENT: Negative. Eyes: Negative. Respiratory: Negative. Cardiovascular: Negative. Gastrointestinal: Negative. Endocrine: Negative. Genitourinary: Negative. Musculoskeletal: Negative. Allergic/Immunologic: Negative. Neurological: Negative. Hematological: Negative. Psychiatric/Behavioral: Negative. Objective: Physical Exam Constitutional: She is oriented to person, place, and time. She appears well- developed and well-nourished. HENT: Head: Atraumatic. Cardiovascular: Normal rate and regular rhythm. Pulmonary/Chest: Effort normal and breath sounds normal. Neurological: She is alert and oriented to person, place, and time. Skin: Skin is warm and dry. Psychiatric: She has a normal mood and affect. Imaging: as in hpi. I have reviewed mammogram and ultrasound. Assessment and Plan: Kassandra is a 53 yo female with two separate issues of the upper, outer left breast but with same recommendation for care Discussed the pathological findings of radial scar in additional to focal, incidental ALH. We discussed the role of NLOC excisional biopsy to exclude an occult carcinoma at the site of radial scar. Given the incidental and focal nature of the ALH, I would not necessarily recommend excision but given separate indicated, we will proceed. If positive for DCIS/IDC/ ILC, Kassandra understands that additional surgery may be warranted and that adjuvant therapy may be indicated. If the excisional biopsy is negative, we discussed the increased lifetime risk of developing breastcancer conferred by the presence of ALH in the specimen. We will review strategies for screening and possible risk reduction once we have the surgical pathology available. Kassandra does have extremelydense breasts and may benefit from screening MRI in addition to mammogram. We will review this plan(and risks/benefits of screening MRI) once surgical pathology is available. Risks of surgery including bleeding, infection and possible need for additional surgery were discussed and consent obtained. documented in this encounter Plan of Treatment Upcoming Encounters Date Type Department Care Team (Late st Contact Info) Description 02/11/2024 2:15 PM EDT Office [place] [address] [facility] [place] [address] 02/15/2024 10:45 AM EDT Office Visit General Surgery at [place] [phone] [facility] [place] [address] 03/12/2024 8:00 AM EDT Appointment Mammography/[place] [address] Ting George [facility] [place] [address] 03/12/2024 9:00 AM EDT Office [place] [address] Ting George [facility] [place] [address] documented as of this encounter Visit Diagnoses Diagnosis Abnormal mammogram Abnormal mammogram, unspecified documented in this encounter Care Teams Desk Maker Relationship Specialty Start Date End Date Nereida Sharif MD [address] [facility] [address] [place] [address] PCP - General 04/26/10 documented as of this encounter
--- OUTSIDE RECORDS SUMMARY | 2024-02-01 01:36 | XMS_ITS | Encounter Summary ---
Author Organization [facility] [place] [address] Care Team Providers Care Elevator Adjuster Name Role Phone Nereida Sharif MD Primary Care Provider [phone] Reason for Visit * Auth/Cert Specialty Diagnoses / Procedures Referred By Contac t Referred To Contact Diagnoses [facility] Procedures PRO EXCISE BREAST LES W XRAY MARKER EXCISION LESION, BREAST W/ PREOP.MARKER (NEEDLE LOC.) (WRVU 6.69) MODIFIER WITH NEEDLE LOC., LESION #1 Referral ID Status Reason Start Date Expiration Date Visits Re quested Visits Authorized [id number] 1 1 Encounter Details Date Type Department Care Team (Latest Contact Info) Description 01/31/2019 10:16 AM EDT - 01/31/2019 11:43 AM EDT Hospital [place] [address] Carleen Magdaleno MD [facility] [place] [address] Abnormal mammogram Discharge Disposition: Home Social History Tobacco Use [...] 2:15 PM EDT Office [place] [address] Julee Ibarra MACHINE BASTER [facility] [place] [address] 02/15/2024 10:45 AM EDT Office Visit General Surgery at [place] [phone] Jian Carmichael MD [facility] [place] [address] 03/12/2024 8:00 AM EDT Appointment Mammography/[place] [phone] Ting George, [facility] [place] [address] 03/12/2024 9:00 AM EDT Office [place] [phone] Ting George, [facility] [place] [address] documented as of this encounter Procedures Procedure Name Priority Date/Time Associated Diagnosis Comments MAMMO SPECIMEN LEFT Routine 01/31/2019 3 :15 PM EDT Abnormal mammogram documented in this encounter Results * Mammo Specimen Left (01/31/2019 3:15 PM EDT) Anatomical Region Laterality Modality Breast Left Mammography Impressions 01/31/2019 3:17 PM EDT Positive specimen x-ray as described. Results phoned to the operating surgeon intraoperatively. Thank you for letting us participate in the care of this patient. For questions regarding this report, please contact the number below. ? Narrative 01/31/2019 3:17 PM EDT EXAMINATION: Specimen x-ray INDICATION: Intraoperative specimen image for adequacy of lesion and/or clip removal TECHNIQUE: A single projection specimen x-ray from the left breast is obtained superimposed on alphanumeric grid COMPARISON: This is correlated with preoperative imaging FINDINGS: Marker clip and intact needle localization device within the specimen. Carleen Magdaleno MD IMG MAMMO ORDERABLE S documented in this encounter Visit Diagnoses Diagnosis Abnormal mammogram Abnormal mammogram, unspecified documented in this encounter Care Teams Elevator Adjuster Relationship Specialty Start Date End Date Nereida Sharif MD [address] [place] [place] [address] PCP - General 04/26/10 documented as of this encounter
--- OUTSIDE RECORDS SUMMARY | 2024-02-01 01:36 | XMS_ITS | Encounter Summary ---
[place] [address] Care Team Providers Care Securities Trader Name Role Phone Nereida Sharif MD Primary Care Provider [phone] Encounter Details Date Type Department Care Team (Late st Contact Info) Description 03/05/2019 Orders [place] [phone] Ting George [facility] [place] [address] Abnormal mammogram (Primary Dx) Social History Tobacco Use Types Packs/Day Years [...] 2:15 PM EDT Office [place] [phone] Julee Ibarra [facility] [place] [address] 02/15/2024 10:45 AM EDT [place] [phone] Jian Carmichael MD [facility] [place] [address] 03/12/2024 8:00 AM EDT Appointment Mammography/[place] [address] Ting George APRN [facility] [place] [address] 03/12/2024 9:00 AM EDT Office [place] [phone] Ting George APRN [facility] [place] [address] documented as of this encounter Results * Mammo Screening Cad and Torito Bilateral (01/07/2020 8:31 AM EDT) Anatomical Region Laterality Modality Breast Bilateral Mammography Narrative 01/07/2020 8:43 AM EDT BILATERAL MAMMOGRAPHY REASON FOR EXAM: Screening TECHNIQUE: CC and MLO views were obtained of each breast using standard 2-D mammography as well as 3-D tomosynthesis. Computer aided detection was used. This is compared with prior images. FINDINGS: The breasts are extremely dense, which lowers the sensitivity of mammography. There are no suspicious microcalcifications, masses, or areas of distortion. The pattern is stable. CONCLUSION: No mammographic evidence of malignancy. RECOMMENDATION: Regular screening mammograms starting between age 40 and 50 reduces the risk of from breast cancer. All screening tests have both risks and benefits. These risks and benefits should be assessed for each individual patient through discussion with their provider to determine their preferred breast cancer screening schedule. Women should report any breast changes to a health care provider right away. Some women, because of their family history, a genetic tendency, or other factors, should be screened with annual breast MRI as well as with mammograms. (The number of women who fall into this category is very small). Patients and health care providers should discuss each patient? s history to decide if earlier screening and/or breast MRI are appropriate. Screening should continue as long as a woman is in good health and is expected to live 10 years or longer. Screening mammography may not detect 10-15% of breast cancers. A result letter has been sent to this patient by the [facility]. BIRADS CATEGORY 1: NEGATIVE Ting George APRN IMG MAMMO ORD ERABLES documented in this encounter Visit Diagnoses Diagnosis Abnormal mammogram- Primary Abnormal mammogram, unspecified Abnormal mammogram Abnormal mammogram, unspecified documented in this encounter Care Teams Securities Trader Relationship Specialty Start Date End Date Nereida Sharif MD [address] [place] [address] PCP - General 04/26/10 documented as of this encounter
--- OUTSIDE RECORDS SUMMARY | 2024-02-01 01:36 | XMS_ITS | Encounter Summary ---
Author Organization [facility] [place] [address] Care Team Providers Care Finance Business Partner Name Role Phone Nereida Sharif MD Primary Care Provider Reason for Visit * Reason Comments Follow-up Encounter Details Date Type Department Care Team (Late st Contact Info) Description 07/18/2021 11:30 AM EST Office [place] [address] Ting George PEST CONTROL WORKER [facility] [place] [address] Breast cancer screening, high risk patient (Not by Mammogram); Atypical lobular hyperplasia of left breast; Radial scar of left breast; Dense breast tissue on mammogram; At high risk for breast cancer; Screening mammogram for high-risk patient Social History Tobacco Use Types Packs/Day Years [...] AM EST documented as of this encounter Patient Instructions * Patient Instructions* Ting George APRN - 07/18/2021 12:58 PM EST Nonpharmacologic measures to help decrease your risk of developing breast cancer include the following: Get at least 30 minutes of moderate intensity physical activity above normal activity on most days of the week to reduce the risk of chronic disease in adulthood. Walking is a good choice. You also may want to do other activities, such as running, swimming, cycling, playing tennis, or other team sports. Do strength training exercises at least twice a week to maintain muscle and bone health. Drink alcohol in moderation, if at all. That means no more than 1 drink a day for women or 2 per day for men. Make healthy eating choices: fruits and vegetables, lean protein, and healthy fats. Minimize processed foods, simple carbohydrates, sugars, and artificial sweeteners. Maintain or achieve a healthy weight. Normal BMI < 25 for individuals under 65 years old; 22-30 for > 65 years old. Manage stress levels. Be cautious about exposure risk, both what you put in and on your body (ie: artificial fragrances, artificial dyes, as well as certain ingredients in makeup, hair and body care, antiperspirant, sunscreen, insect repellant, laundry detergent, fabric softener, dryer sheets, etc.). Resources to help you make informed choices for personal care products are available at EWG (Environmental Working Group) at https://www.ewg.org and free apps for your cell phone from [employer] (Healthy Living) and [employer] (Swift Shift). documented in this encounter Progress Notes * Ting George APRN - 07/18/2021 11:30 AM EST Images from the original note were not included. Patient ID: Kassandra Sierra is a 55 y.o. female. She is accompanied by her Ramírez. HPI: Kassandra is a patient of Dr. Magdaleno with a history of radial scar and ALH in the left breast who returns for high risk breast cancer screening. She is status post excisional biopsy on January 31, 2019. At today's visit, Kassandra has no breast concerns and denies any new lumps or bumps in her breasts or axilla. She does perform occasional self-breast exams. No nipple discharge or pain in either breast. She denies any headaches or significant weight changes. No new chest pain or difficulty breathing. No new bony pain or tenderness. She denies significant changes to her health since her last visit. Breast history: Kassandra presented for screening mammogram in November 2018. This revealed a suspicious spiculated mass in the upper outer left breast. Call back views confirmed a highly suspicious, spiculated 1-cm mass.The right breast was normal. Biopsy revealed radial scar with focal, incidental ALH. A screening MRI on 07/19/2020 noted a 9-mm benign-appearing well-circumscribed mass consistent with a fibroadenoma. The right breast had benign scattered cysts without concerning features. There was an unexpected finding in the right upper paracentral sternum of a 6 to 7-mm well-circumscribed enhancement most consistent with a small benign hemangioma. A chest [facility] at [facility] was benign. Chemoprevention with tamoxifen was discussed and declined. Breast Cancer Risk Factors: History Oral contraceptive use No Menarche age 12 yo LMP 05/2018 Hormone replacement therapy No Family history of breast cancer Maternal aunt Family history of ovarian cancer Paternal aunt Ashkenazi Amish heritage No Known genetic mutation 01/07/20 - [facility]'s Multi Cancer Panel showed no mutations detected Previous radiation to chest No Family History Problem (# of Occurrences) Relation (Name,Age of Onset) Amblyopia (1) Sister Breast Cancer (1) Maternal Aunt (60): in her 60s Colorectal Cancer (1) Paternal Aunt (75) Diabetes (1) Sister Hypertension (1) Father Kidney Cancer (1) Maternal Cousin (61): SD's brother's daughter Leukemia (2) Maternal Grandmother (90), Paternal Uncle (55) Ovarian Cancer (1) Paternal Aunt (75) Prostate Cancer (1) Father (73): metastatic to bone Stomach Cancer (1) Paternal Grandmother (37): at 37 Strabismus (1) Sister Negative family history of: Glaucoma, Cataracts, Macular Degeneration, Retinal Detachment, Thyroid Disease, Heart Disease Social Hx: 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 They are active snowshoeing, walking, hiking, and riding their motorcycle. She has never smoked and does not drink alcohol. Physical Exam: General appearance: Alert, well-developed, well-nourished; in no acute distress. Skin: Warm and dry. Head: Normocephalic, atraumatic. Neck: Soft and supple without adenopathy. Cardiovascular: Normal rate, regular rhythm and normal heart sounds. No murmur heard. Pulmonary: Effort normal and breath sounds normal. No respiratory distress, cough, or wheezing. Breasts: Well-healed periareolar incision on the left. Right breast appears normal. No suspicious masses, tenderness, dimpling, erythema, or other skin changes in either breast. No nipple discharge or other nipple changes. No palpable axillary lymph nodes bilaterally. The patient's breasts are symmetric. The nipples are everted. She has dense fibroglandular tissue in the central portion of both breasts with a fine nodular pattern over the surface. I feel no obvious discrete or dominant masses in either breast. Musculoskeletal: Arms with full ROM without any evidence of lymphedema. Fully weight-bearing. Neurological: Alert and oriented x 4. Mood is euthymic and appropriate to the situation. Tyrer-Cuzick Risk Assessment: Breast Cancer Risk (ODESSA) Scores 01/25/2021 Lifetime Risk of Patient 59.8% Average Lifetime Risk 10.8% 10-Year Risk of Patient 21.5% Average 10-Year Risk 2.9% Results: Imaging performed (breast MRI at [facility] today. The results were pending at the time of today's appointment. I will notify her of results via myD-H when available. Assessment: Clinical breast exam notable for fibroglandular breast tissue bilaterally without notable masses, skin changes, dimpling, or nipple discharge. Stable exam. Plan: 1. Breast cancer screening, high risk patient (Not by Mammogram) 2. Atypical lobular hyperplasia of left breast 3. Radial scar of left breast 4. Dense breast tissue on mammogram 5. At high risk for breast cancer 6. Screening mammogram for high-risk patient - Mammo Screening Cad and Torito Bilateral; January 2022 Kassandra has extremely dense breast tissue. I think that continuing breast cancer screening with 3-Dmammography is appropriate. A small percentage of individuals, because of their family history, a genetic tendency, or other risk factors, benefit from breast MRI as well as mammography for screening. The pros and cons of MRI were reviewed, including the false positive rate of MRI. While the sensitivity of MR screening is greater than the sensitivity of mammography, this also increases the risk of false positive imaging leading to negative biopsies. We discussed that MRI would not reduce her risk of breast cancer development, but would be intended to detect it earlier and therefore possibly minimize the extent of treatment required. Kassandra meets the ACS criteria for the use of breast MR, namely she has a greater than 20% lifetime risk of developing breast cancer, and the sensitivity of mammography may be limited, so I think the use of breast MR for screening is reasonable. We will planto continue staggered annual mammogram and MRI screenings with semi-annual clinical breast exams. Routine recommendations discussed with the patient including importance of regular moderate intensity exercise, nutrition, decreasing cardiovascular risk, and optimizing weight. Nonpharmacologic measures to help decrease your risk of developing breast cancer include the following: ?? Get at least 30 minutes of moderate intensity physical activity above normal activity on most days of the week to reduce the risk of chronic disease in adulthood. Walking is a good choice. You also may want to do other activities, such as running, swimming, cycling, playing tennis, or other teamsports. ?? Do strength training exercises at least twice a week to maintain muscle and bone health. ?? Drink alcohol in moderation, if at all. That means no more than 1 drink a day for women or 2 perday for men. ?? Make healthy eating choices: fruits and vegetables, lean protein, and healthy fats. Minimize processed foods, simple carbohydrates, sugars, and artificial sweeteners. ?? Maintain or achieve a healthy weight. Normal BMI < 25 for individuals under 65 years old; 22-30 for > 65 years old. ?? Manage stress levels. ?? Be cautious about exposure risk, both what you put in and on your body (ie: artificial fragrances, artificial dyes, as well as certain ingredients in makeup, hair and body care, antiperspirant, sunscreen, insect repellant, laundry detergent, fabric softener, dryer sheets, etc.). The [place] bans or restricts over 1,400 ingredients from personal care products. Currently, the [place] bans or restricts only 30 products. Resources to help you make informed choices for personal care products are available at EWG (Environmental Working Group) at https://www.ewg.org and free apps for your cell phone from [employer] (Healthy Living) and [employer] (Swift Shift). All questions were answered to the patient's satisfaction and they state understanding and agreement with today's treatment plan. They are encouraged to follow up sooner if they develop any new or concerning symptoms. Ting George APRN Surgical Oncology P [phone] F [phone] [facility] documented in this encounter Plan of Treatment Upcoming Encounters Date Type Department Care Team (Late st Contact Info) Description 02/11/2024 2:15 PM EDT Office Visit Gastroenterology at [place] [phone] Julee Ibarra PEST CONTROL WORKER [facility] [place] [address] 02/15/2024 10:45 AM EDT Office Visit General Surgery at [place] [phone] Jian Carmichael MD [facility] [place] [address] 03/12/2024 8:00 AM EDT Appointment Mammography/[place] [address] Ting George PEST CONTROL WORKER [facility] [place] [address] 03/12/2024 9:00 AM EDT Office [place] [phone] Ting George APRN [facility] [place] [address] documented as of this encounter Visit Diagnoses Diagnosis Breast cancer screening, high risk patient Screening mammogram for high-risk patient Atypical lobular hyperplasia of left breast Radial scar of left breast Dense breast tissue on mammogram At high risk for breast cancer Screening mammogram for high-risk patient documented in this encounter Care Teams Finance Business Partner Relationship Specialty Start Date End Date Nereida Sharif MD [address] [place] [address] PCP - General 04/26/10 documented as of this encounter
--- OUTSIDE RECORDS SUMMARY | 2024-02-01 01:36 | XMS_ITS | Encounter Summary ---
[place] [address] Care Team Providers Care Bituminous Distributor Operator Name Role Phone Nereida Sharif MD Primary Care Provider [phone] Reason for Referral * Diagnostic Test (Routine) - Closed Specialty Diagnoses / Procedures Referred By Shellie davis Referred To Contact Radiology Diagnoses Breast cancer screening, high risk patient Atypical lobular hyperplasia of left breast Radial scar of left breast Dense breast tissue on mammogram At increased risk of breast cancer Procedures MRI Breast wwo Contrast Ting Stokes APRN [facility] [address] [place] [address] Referral ID Status Reason Start Date Expiration Date V isits Requested Visits Authorized [id number] Closed Specialty Service Requested 06/20/2022 12/19/2023 1 1 Reason for Visit * Diagnostic Test (Routine) - Closed Specialty Diagnoses / Procedures Referred By hSellie davis Referred To Contact Radiology Diagnoses Breast cancer screening, high risk patient Atypical lobular hyperplasia of left breast Radial scar of left breast Dense breast tissue on mammogram At increased risk of breast cancer Procedures MRI Breast wwo Contrast Ting Stokes APRN [facility] [address] [place] [address] Referral ID Status Reason Start Date Expiration Date V isits Requested Visits Authorized [id number] Closed Specialty Service Requested 06/20/2022 12/19/2023 1 1 Encounter Details Date Type Department Care Team (Latest Contact Info) Description 08/22/2022 8:41 AM EDT - 08/22/2022 11:59 PM EDT Hospital [place] [address] Ting George DIE TROUBLE SHOOTER [facility] [place] [address] Breast cancer screening, high risk patient; Atypical lobular hyperplasia of left breast; Radial scar of left breast; Dense breast tissue on mammogram; At increased risk of breast cancer Discharge Disposition: Home Social History Tobacco [...] 2:15 PM EDT Office [place] [address] Julee Ibarra DIE TROUBLE SHOOTER [facility] [place] [address] 02/15/2024 10:45 AM EDT Office [place] [address] Jian Carmichael MD [facility] [place] [address] 03/12/2024 8:00 AM EDT Appointment Mammography/[place] [phone] Ting George APRN [facility] [place] [address] 03/12/2024 9:00 AM EDT Office Visit [place] [phone] Ting George APRN [facility] [place] [address] documented as of this encounter Procedures Procedure Name Priority Date/Time Associated Diagnosis Comments MRI BREAST WWO CONTRAST BILAT Routine 08/22/2022 10:44 AM EDT Breast cancer screening, high risk patient Atypical lobular hyperplasia of left breast Radial scar of left breast Dense breast tissue on mammogram At increased risk of breast cancer documented in this encounter Results * MRI Breast wwo Contrast Bilat (08/22/2022 10:44 AM EDT) Anatomical Region Laterality Modality Breast Bilateral Magnetic Resonan ce Impressions 08/22/2022 4:40 PM EDT No MRI evidence of malignancy. RECOMMENDATION:Routine annual surveillance. LEFT BREAST BI-RADS Category 1: Negative RIGHT BREAST BI-RADS Category 1: Negative Thank you for letting us participate in the care of this patient. ??If you are a health care provider and have any questions regarding this report, please contact the number below. ??For patients who have questions please contact the health summer child caregiver that requested your imaging first. ? Narrative 08/22/2022 4:40 PM EDT BILATERAL BREAST MRI CLINICAL INDICATION: Breast high risk screening. History of left breast ALH and radial scar TECHNIQUE: Multiplanar sequences were obtained pre- and post- Dotarem enhancement, to include SPGR weighted dynamic run-off and subtraction sequences obtained after the intravenous administration of 16 ccs of Dotarem. Computer algorithm analysis for lesion detection and kinetic contrast enhancement curve analysis was performed, using Network [employer] software. COMPARISON STUDIES: Compared and/or correlated with prior studies including MRI dated 07/18/2021 and 07/19/2020.. FINDINGS: Background Enhancement Pattern (first post Dotarem image): Marked (>75% breast) Amount of Fibroglandular Tissue: Extreme fibroglandular tissue LEFT Breast:Again seen is a stable enhancing T2 bright mass in the upper outer quadrant. No suspicious enhancing new mass or nonmass enhancement is seen. RIGHT Breast:There is no suspicious enhancing mass, nonmass enhancement or other visible abnormality. Lymph Node Basins/Other: There is no evidence of internal mammary or axillary adenopathy.. No significant abnormalities are seen in the chest wall or skin.. The small, T2 bright enhancing lesion in the right side of the sternum is again seen, unchanged and in keeping with probable hemangioma as mentioned on previous report of 07/19/2020.. Ting George APRN IMG MRI ORDER BELKYS documented in this encounter Visit Diagnoses Diagnosis Breast cancer screening, high risk patient Screening mammogram for high-risk patient Atypical lobular hyperplasia of left breast Radial scar of left breast Dense breast tissue on mammogram At increased risk of breast cancer documented in this encounter Administered Medications Inactive Administered Medications - up to 3 most recent administrations Medication Order MAR Action Action Date Dose Rate Site gadoterate meglumine (Dotarem) (0.5 mMol/mL) injection solution 0-100 mL 0-100 mL, Intravenous, ONCE PRN, 1 dose, Starting on Sun08/22/22 at 1017, Until Sun08/22/22 at 1017, Per Protocol, Radiology Contrast, Routine Given 08/22/2022 10:17 AM EDT 16 mLs documented in this encounter Care Teams Bituminous Distributor Operator Relationship Specialty Start Date End Date Nereida Sharif MD [address] [place] [address] PCP - General 04/26/10 documented as of this encounter
--- OUTSIDE RECORDS SUMMARY | 2024-02-01 01:36 | XMS_ITS | Encounter Summary ---
[place] [address] Care Team Providers Care Data Compiler Name Role Phone Nereida Sharif MD Primary Care Provider [phone] Encounter Details Date Type Department Care Team (Late st Contact Info) Description 01/30/2019 Telephone [place] [phone] Hellen Moreno Social History Tobacco Use Types Packs/Day Years [...] encounter Miscellaneous Notes * Telephone Encounter - Hellen Moreno - 01/30/2019 1:46 PM EDT Patient scheduled for breast surgery with Dr Magdaleno on 01/31/19. She broke her foot about a weekago, has been taking tylenol and having a CT scan today to see if there is anything that needs to be surgically repaired. Foot is quite swollen. She will be none weight bearing for 6-8 weeks and currently has a w/c and obtaining a knee scooter. The OR nurses asked patient to confirm with Dr Magdaleno that it's still of for her to have surgery tomorrow, which she really would like to have. documented in this encounter Plan of Treatment Upcoming Encounters Date Type Department Care Team (Late st Contact Info) Description 02/11/2024 2:15 PM EDT Office Visit Gastroenterology at [place] [phone] Julee Ibarra [facility] [place] [address] 02/15/2024 10:45 AM EDT Office Visit General Surgery at [address] Jian Carmichael MD [facility] [place] [address] 03/12/2024 8:00 AM EDT Appointment Mammography/DXA at [place] [phone] Ting George, [facility] [place] [address] 03/12/2024 9:00 AM EDT Office Visit General Surgery at [place] [phone] Ting George, [facility] [place] [address] documented as of this encounter Visit Diagnoses Not on filedocumented in this encounter Care Teams Data Compiler Relationship Specialty Start Date End Date Nereida Sharif MD [address] [place] [address] PCP - General 04/26/10 documented as of this encounter
--- OUTSIDE RECORDS SUMMARY | 2024-02-01 01:36 | XMS_ITS | Encounter Summary ---
[place] [address] Care Team Providers Care Home Energy Consultant Supervisor Name Role Phone Nereida Sharif MD Primary Care Provider [phone] Encounter Details Date Type Department Care Team (Latest Contact Info) Description 08/15/2022 Travel Social History Tobacco Use Types Packs/Day [...] 2:15 PM EDT Office Visit [place] [phone] Julee Ibarra APRN [facility] [place] [address] 02/15/2024 10:45 AM EDT Office Visit [place] [phone] Jian Carmichael MD [facility] [place] [address] 03/12/2024 8:00 AM EDT Appointment Mammography/[place] [address] Ting George [facility] [place] [address] 03/12/2024 9:00 AM EDT Office Visit [place] [phone] Ting George [facility] [place] [address] documented as of this encounter Visit Diagnoses Not on filedocumented in this encounter Care Teams Home Energy Consultant Supervisor Relationship Specialty Start Date End Date Nereida Sharif MD [address] [place] [address] PCP - General 04/26/10 documented as of this encounter
--- OUTSIDE RECORDS SUMMARY | 2024-02-01 01:36 | XMS_ITS | Encounter Summary ---
[place] [address] Care Team Providers Care Braille Duplicating Machine Operator Name Role Phone Nereida Sharif MD Primary Care Provider [phone] Encounter Details Date Type Department Care Team (Late st Contact Info) Description 07/19/2020 9:50 AM EST Office [place] [address] Ting George DIRECTOR OF AGRONOMY [facility] [place] [address] Breast cancer screening, high risk patient (Not by Mammogram); Atypical lobular hyperplasia of left breast; Radial scar of left breast; Dense breast tissue on mammogram; Screening mammogram for high-risk patient Social History [...] AM EST documented as of this encounter Progress Notes * Tign George APRN - 07/19/2020 9:50 AM EST Images from the original note were not included. Patient ID: Kassandra Arash Rigo is a 54 y.o. female HPI: Kassandra is a patient of Dr. Magdaleno with a history of radial scar and ALH in the left breast who returns for high risk breast cancer screening. She is status post excisional biopsy on January 31, 2019. At today's visit, Kassandra denies any new lumps or bumps in her breasts or axilla. She does perform occasional self-breast exams. No nipple discharge or pain in either breast. She denies any headachesor significant weight changes. No new chest pain or difficulty breathing. No new bony pain or tenderness. She denies significant changes to her health since her last visit. Breast history: Kassandra presented for screening mammogram in November,. This revealed a suspicious spiculated massin the upper outer left breast. Call back views confirmed a highly suspicious, spiculated 1 cm mass. Of note, the right breast was normal. Biopsy revealed radial scar with focal, incidental ALH. ?? Kassandra proceeded with excisional biopsy. Pathology revealed residual sclerosing lesion with usual ductal hyperplasia. Kassandra [facility]. She optedfor testing with [employer] Multi-Cancer Panel. Breast Cancer Risk Factors: History Oral contraceptive use No Menarche age 12 yo LMP 05/2018 Hormone replacement therapy No Family history of breast cancer Maternal aunt Family history of ovarian cancer Paternal aunt Known genetic mutation 01/07/20 - [employer] Multi Cancer Panel showed no mutations detected Previous radiation to chest No Family History Problem (# of Occurrences) Relation (Name,Age of Onset) Amblyopia (1) Sister Breast Cancer (1) Maternal Aunt (60): in her 60s Colorectal Cancer (1) Paternal Aunt (75) Diabetes (1) Sister Hypertension (1) Father Kidney Cancer (1) Maternal Cousin (61): MGArash's brother's daughter Leukemia (2) Maternal Grandmother (90), Paternal Uncle (55) Ovarian Cancer (1) Paternal Aunt (75) Prostate Cancer (1) Father (73): metastatic to bone Stomach Cancer (1) Paternal Grandmother (37): at 37 Strabismus (1) Sister Negative family history of: Glaucoma, Cataracts, Macular Degeneration, Retinal Detachment, Thyroid Disease, Heart Disease Social Hx: 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 She does not smoke or drink alcohol. Physical Exam: General appearance: Alert, well-developed, well-nourished female in no acute distress. Skin: Warm and [...] is euthymic and appropriate to the situation. Results: Imaging performed (bilateral MRI) at [facility] today. The results are still pending at the timeof today's appointment. I will notify her of results via myD- H when available. Assessment: Clinical breast exam notable for fibroglandular breast tissue bilaterally without notable masses, skin changes, dimpling, or nipple discharge. Stable exam. Plan: 1. Breast cancer screening, high risk patient (Not by Mammogram) 2. Atypical lobular hyperplasia of left breast 3. Radial scar of left breast 4. Dense breast tissue on mammogram 5. Screening mammogram for high-risk patient - Mammo Screening Cad and Torito Bilateral; Jan 2021 I have discussed my assessment and recommendations with Kassandra to include occasional self-breast exams and annual mammographic screening with clinical breast exams. Based on her risk status, pendingnormal results from today's MRI, her next bilateral screening mammogram is due in 6 months, or sooner if indicated. I will plan to see her for a clinical breast exam at that time. At that visit, we will discuss whether or not she would like to continue staggered screening, or only occasional MRIs. She will also contact me if she develops any new breast changes or concerns prior to that appointment. She agrees to this plan. Routine recommendations discussed with the patient including importance of regular moderate intensity exercise, nutrition, decreasing cardiovascular risk, and optimizing weight. Nonpharmacologic measures that you can take to decrease your risk of developing breast cancer [...] simple carbohydrates, sugars, and artificial sweeteners. ?? Normal BMI < 25 for individuals under 65 years old; 22-30 for > 65 years old. ?? Be cautious about exposure risk, both what you put in and on your body (ie: artificial fragrances, artificial dyes, as well as certain ingredients in makeup, hair and body care, antiperspirant, laundry detergent, fabric softener, dryer sheets, etc.). The nations ban over 1,300 ingredients from personal care products. Currentlly, the [place] only bans approximately 30 products. Apps to helpmake healthier choices for personal care products are available for free at EWG (Environmental Working Group) and [employer]. All questions were answered to the patient's satisfaction and they state understanding and agreement with today's treatment plan. They are encouraged to follow up sooner if they develop any new or concerning symptoms. Ting George APRN Surgical Oncology P [phone] F [phone] [facility] documented in this encounter Plan of Treatment Upcoming Encounters Date Type Department Care Team (Late st Contact Info) Description 02/11/2024 2:15 PM EDT Office [place] [phone] Julee Ibarra [facility] [place] [address] 02/15/2024 10:45 AM EDT Office Visit General Surgery at [place] [phone] Jian Carmichael MD [facility] [place] [address] 03/12/2024 8:00 AM EDT Appointment Mammography/DXA at [place] [phone] Ting George [facility] [place] [address] 03/12/2024 9:00 AM EDT Office [place] [phone] Ting George [facility] [place] [address] documented as of this encounter Results * Mammo Screening Cad and Torito Bilateral (01/25/2021 8:15 AM EDT) Anatomical Region Laterality Modality Breast Bilateral Mammography Narrative 01/25/2021 8:31 AM EDT BILATERAL MAMMOGRAPHY REASON FOR EXAM: [...] and health care providers should discuss each patients history to decide if earlier screening and/or breast MRI are appropriate. Screening should continue as long as a woman is in good health and is expected to live 10 years or longer. Screening mammography may not detect 10-15% of breast cancers. A result letter has been sent to this patient by the [facility]. BIRADS CATEGORY 1: NEGATIVE Electronically signed by: NETTIE BLOUNT MD Ting George APRN IMG MAMMO ORD ERABLES documented in this encounter Visit Diagnoses Diagnosis Breast cancer screening, high risk patient Screening mammogram for high-risk patient Atypical lobular hyperplasia of left breast Radial scar of left breast Dense breast tissue on mammogram Screening mammogram for high-risk patient Atypical lobular hyperplasia of left breast Radial scar of left breast Dense breast tissue on mammogram Screening mammogram for high-risk patient documented in this encounter Care Teams Braille Duplicating Machine Operator Relationship Specialty Start Date End Date Nereida Sharif MD [address] [place] [address] PCP - General 04/26/10 documented as of this encounter
--- OUTSIDE RECORDS SUMMARY | 2024-02-01 01:36 | XMS_ITS | Encounter Summary ---
Author Organization [facility] [place] [address] Care Team Providers Care Power Press Operator Name Role Phone Nereida Sharif MD Primary Care Provider [phone] Reason for Referral * Diagnostic Test (Routine) - Closed Specialty Diagnoses / Procedures Referred By Shellie davis Referred To Contact Radiology Diagnoses Breast cancer screening, high risk patient Atypical lobular hyperplasia of left breast Radial scar of left breast Dense breast tissue on mammogram At increased risk of breast cancer Procedures MRI Breast wwo Contrast Ting Stokes APRN [facility] [place] [address] [place] [address] Referral ID Status Reason Start Date Expiration Date V isits Requested Visits Authorized [id number] Closed Specialty Service Requested 06/20/2022 12/19/2023 1 1 Encounter Details Date Type Department Care Team (Late st Contact Info) Description 06/20/2022 Orders Only [place] [address] Ting George APRN [facility] [place] [address] Breast cancer screening, high risk patient; Atypical lobular hyperplasia of left breast; Radial scar of left breast; Dense breast tissue on mammogram; At increased risk of breast cancer Social History Tobacco Use Types Packs/Day Years [...] 2:15 PM EDT Office [place] [address] Julee Ibarra [facility] [place] [address] 02/15/2024 10:45 AM EDT Office Visit General Surgery at [place] [phone] Jian Carmichael MD [facility] [place] [address] 03/12/2024 8:00 AM EDT Appointment Mammography/[place] [phone] Ting George, [facility] [place] [address] 03/12/2024 9:00 AM EDT Office Visit [place] [phone] Ting George [facility] [place] [address] documented as of this encounter Results * MRI Breast wwo [...] who have questions please contact the health date night caregiver that requested your imaging first. ? [...] contrast enhancement curve analysis was performed, using RICS Software software. COMPARISON STUDIES: Compared and/or correlated with [...] mammogram At increased risk of breast cancer Breast cancer screening, high risk patient Screening mammogram for high-risk patient Atypical lobular hyperplasia of left breast Radial scar of left breast Dense breast tissue on mammogram At increased risk of breast cancer documented in this encounter Care Teams Power Press Operator Relationship Specialty Start Date End Date Nereida Sharif MD [address] [place] [address] PCP - General 04/26/10 documented as of this encounter
--- OUTSIDE RECORDS SUMMARY | 2024-02-01 01:36 | XMS_ITS | Encounter Summary ---
[place] [address] Care Team Providers Care Director Of Retail Analytics Name Role Phone Nereida Sharif MD Primary Care Provider [phone] Encounter Details Date Type Department Care Team (Late st Contact Info) Description 08/27/2023 11:30 AM EDT Office [place] [address] Ting George PERSONNEL SECURITY SPECIALIST [facility] [place] [address] Breast cancer screening, high risk patient; Atypical lobular hyperplasia of left breast; Radial scar of left breast; Extremely dense tissue of both breasts on mammography; At increased risk of breast cancer; Screening mammogram for high-risk patient [...] as of this encounter Progress Notes * Ting George APRN - 08/27/2023 11:30 AM EDT Images from the original note were not included. Patient ID: Kassandra Arash Sierra is a 57 y.o. female. She is accompanied by her [...] bumps in her breasts or axilla. She performs occasional self-breast exams. No nipple discharge or pain in either breast. She denies new headaches or significant weight changes. No chest pain or difficulty breathing. No newbony pain or tenderness. Kassandra denies significant changes to her health since her last visit. Review of Systems: Constitutional: Negative for anorexia, diaphoresis, fever, weight loss, malaise/fatigue and chills. Respiratory: Negative for cough, shortness of breath and chest discomfort. Gastrointestinal: Negative for abdominal discomfort, vomiting, constipation, nausea and diarrhea. Psychiatric/Behavioral: Negative for depression and physiological symptoms of anxiety. Musculoskeletal: Negative for joint pain and stiffness. Occasional mid back pain. Cardiovascular: Negative for palpitations and near-syncope. Neurological: Negative for headaches. Breast history: Kassandra presented for screening mammogram in November 2018. This revealed a suspicious spiculated mass in the upper outer left breast. Call back views confirmed a highly suspicious, spiculated 1-cm mass.The right breast was normal. Biopsy revealed radial scar with focal, incidental ALH. A screening MRI on 07/19/2020 noted a 9-mm benign-appearing well-circumscribed mass consistent with a fibroadenoma in the left upper outer quadrant. The right breast had benign scattered cysts withoutconcerning features. There was an unexpected finding in the right upper paracentral sternum of a 6 to 7-mm well- circumscribed enhancement most consistent with a small benign [facility]angioma[facility] Chemoprevention with tamoxifen was discussed and declined. Breast Cancer Risk Factors: History Oral contraceptive use No Menarche age 12 yo LMP 05/2018 Hormone replacement therapy No Family history of breast cancer Maternal aunt Family history of ovarian cancer Paternal aunt Ashkenazi Adventist heritage No Known genetic mutation 01/07/20 - [facility]'s Multi Cancer Panel showed no mutations detected Previous radiation to chest No Family History Problem (# of Occurrences) Relation (Name,Age of Onset) Diabetes (1) Sister Hypertension (1) Father Breast Cancer (1) Maternal Aunt (60): in her 60s Ovarian Cancer (1) Paternal Aunt (75) Amblyopia (1) Sister Strabismus (1) Sister Colorectal Cancer (1) Paternal Aunt (75) Stomach Cancer (1) Paternal Grandmother (37): at 37 Prostate Cancer (1) Father (73): metastatic to bone Kidney Cancer (1) Maternal Cousin (61): MGM's brother's daughter Leukemia (2) Maternal Grandmother (90), Paternal Uncle (55) Negative family history of: Glaucoma, Cataracts, Macular Degeneration, Retinal Detachment, Thyroid Disease, Heart Disease Social Hx: 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 They are active snowshoeing, walking, hiking, andriding their motorcycle. She has never smoked and does not drink alcohol. Physical Exam: General appearance: Alert, well-developed, well-nourished; in no acute distress. Skin: Warm and dry. Head: Normocephalic, atraumatic. Neck: Soft and supple without cervical or supraclavicular adenopathy. Cardiovascular: Normal rate, regular rhythm and normal heart sounds. No murmur heard. Pulmonary: Effort normal and breath sounds normal. No respiratory distress, cough, or wheezing. Breasts: Exam performed in the upright and supine positions. Well-healed periareolar incision on the left. Right breast has normal appearance and contour. No suspicious masses, tenderness, dimpling, erythema, or other skin changes in either breast. No nipple discharge or other nipple changes. No pal pable axillary lymph nodes bilaterally. The patient's breasts are symmetric. The nipples are everted. Breast exam by palpation revealed no obvious or distinct masses or nodularity in either breast. Musculoskeletal: Arms with full ROM without any evidence of lymphedema. Fully weight-bearing. Neurological: Alert and oriented x 4. Mood is euthymic and appropriate to the situation. Tyrer-Cuzick Risk Assessment: Breast Cancer Risk (ODESSA) Scores 01/25/2021 Lifetime Risk of Patient 59.8% Average Lifetime Risk 10.8% 10-Year Risk of Patient 21.5% Average 10-Year Risk 2.9% Results: Imaging performed (breast MRI) at [facility] [place]. The results were pending at the time of today's appointment. I will notify Kassandra of results via myD-H when available. Assessment: Clinical breast exam notable for fibroglandular breast tissue bilaterally without notable masses, skin changes, dimpling, or nipple discharge. Stable exam. Plan: 1. Breast cancer screening, high risk patient 2. Atypical lobular hyperplasia of left breast 3. Radial scar of left breast 4. Extremely dense tissue of both breasts on mammography 5. At increased risk of breast cancer 6. Screening mammogram for high-risk patient - Mammo Screening Cad and Torito Bilateral; February 2024 Kassandra has extremely dense breast tissue. I think that continuing breast cancer screening with 3-Dmammography is appropriate. A small percentage of individuals, because of their family history, a genetic tendency, or other risk factors, benefit from breast MRI as well as mammography for screening. She is aware that MRI would not reduce her risk [...] of breast MR for screening is reasonable. I have discussed my assessment and recommendations with Kassandra to include breast awareness and staggered annual mammographic and MRI screening with semi- annual clinical breast exams. Provided today's MRI is negative, she will continue to follow up with me in 6 months for ongoing breast cancer screening with a mammogram. She has requested to do less frequent MRIs after today. Kassandra will contactme if she develops any new breast changes or concerns prior to that appointment. She agrees to thisplan. Breast cancer risk reduction: Continue annual bilateral screening mammograms until life expectancy is <10 years and you remainin good health, or as long as you would consider treatment for a breast cancer if found. Continue clinical breast exams at least once yearly. Continue self breast awareness. Get at least 150 minutes of cardiovascular exercise and 2 days of resistance/strength training per week. Ways to include exercise at home include yoga and bone building exercise videos online. Eat a mainly plant-based Mediterranean style diet. Minimize processed foods, simple carbohydrates, sugars, and artificial sweeteners. Do not smoke. If consuming alcohol, limit to 1 drink or less per day. Maintain or achieve a healthy weight. Normal [...] available at EWG (Environmental Working Group) at ewThe [employer] Group.org and free apps for your cell phone from [employer] (Healthy Living) and [employer] ([employer]G Solutions). Anticancer Lifestyle program offers free tools and information to help you improve your diet, increase fitness, decrease stress, and reduce your exposure to harmful chemicals in your home environment. Free course available at anticancerlifestyle.org. All questions were answered to the patient's satisfaction and they state understanding and agreement with today's treatment plan. They are encouraged to follow up sooner if they develop any new or concerning symptoms. Ting George APRN Surgical Oncology P [phone] F [phone] [facility] documented in this encounter Plan of Treatment Upcoming Encounters Date Type Department Care Team (Late st Contact Info) Description 02/11/2024 2:15 PM EDT Office [place] [address] Julee Ibarra APRN [facility] [place] [address] 02/15/2024 10:45 AM EDT Office [place] [phone] Jian Carmichael MD [facility] [place] [address] 03/12/2024 8:00 AM EDT Appointment Mammography/[place] [address] Ting George APRN [facility] [place] [address] 03/12/2024 9:00 AM EDT Office [place] [phone] Ting George APRN [facility] [place] [address] Scheduled Orders Name Type Priority Associated Diagnoses Orde r Schedule Mammo Screening Cad and Torito Bilateral Imaging Routine Atypical lobular hyperplasia of left breast Radial scar of left breast Extremely Dense Tissue Of Both Breasts On Mammography At Increased Risk Of Breast Cancer Screening mammogram for high-risk patient Expected: 02/28/2024, Expires: 02/26/2025 documented as of this encounter Visit Diagnoses Diagnosis Breast cancer screening, high risk patient Screening mammogram for high-risk patient Atypical lobular hyperplasia of left breast Radial scar of left breast Extremely dense tissue of both breasts on mammography At increased risk of breast cancer Screening mammogram for high-risk patient documented in this encounter Care Teams Director Of Retail Analytics Relationship Specialty Start Date End Date Nereida Sharif MD [address] [place] [address] PCP - General 04/26/10 documented as of this encounter
--- OUTSIDE RECORDS SUMMARY | 2024-02-01 01:36 | XMS_ITS | Encounter Summary ---
Author Organization [facility] [place] [address] Care Team Providers Care Drill Presser Name Role Phone Nereida Sharif MD Primary Care Provider [phone] Encounter Details Date Type Department Care Team (Late st Contact Info) Description 12/09/2018 Notes Only [place] [phone] Nettie Blount MD [facility] [place] [address] Social History Tobacco Use Types Packs/Day Years [...] as of this encounter Progress Notes * Nettie Blount MD - 12/09/2018 2:52 PM EDT Pre-procedure note for needle breast biopsies performed in radiology. Procedure date: Today Procedure type: left breast stereotactic biopsy Allergies: Patient has no known allergies. Medications: Current Outpatient Medications: ??? hydroCHLOROthiazide (HYDRODIURIL) 25 mg Tablet, Take 25 mg by mouth as needed., Disp: , Rfl: Anticoagulation status: none stopped on: N/A Imaging reviewed and procedural plan approved by Dr. NETTIE BLOUNT MD documented in this encounter Plan of Treatment Upcoming Encounters Date Type Department Care Team (Late st Contact Info) Description 02/11/2024 2:15 PM EDT Office Visit Gastroenterology at [place] [address] Julee Ibarra, [facility] [place] [place] [address] 02/15/2024 10:45 AM EDT Office Visit General Surgery at [address] Jian Carmichael MD [facility] [place] [address] 03/12/2024 8:00 AM EDT Appointment Mammography/DXA at [place] [address] Ting George, [facility] [place] [place] [address] 03/12/2024 9:00 AM EDT Office Visit General Surgery at [place] [address] Ting George [facility] [place] [address] documented as of this encounter Visit Diagnoses Not on filedocumented in this encounter Care Teams Drill Presser Relationship Specialty Start Date End Date Nereida Sharif MD [address] [place] [address] PCP - General 04/26/10 documented as of this encounter
--- OUTSIDE RECORDS SUMMARY | 2024-02-01 01:36 | XMS_ITS | Encounter Summary ---
Author Organization [facility] [place] [address] Care Team Providers Care Hunting Sales Associate Name Role Phone Nereida Sharif MD Primary Care Provider [phone] Encounter Details Date Type Department Care Team (Late st Contact Info) Description 01/23/2019 Orders [place] [phone] Carleen Magdaleno MD [facility] [place] [address] Abnormal mammogram Social History Tobacco Use Types [...] 2:15 PM EDT Office [place] [phone] Julee Ibarra APRN [facility] [place] [address] 02/15/2024 10:45 AM EDT Office [place] [phone] Jian Carmichael MD [facility] [place] [address] 03/12/2024 8:00 AM EDT Appointment Mammography/[place] [address] Ting George [facility] [place] [address] 03/12/2024 9:00 AM EDT Office [place] [address] Ting George [facility] [address] documented as of this encounter Results * Mammo Specimen Left [...] Diagnoses Diagnosis Abnormal mammogram Abnormal mammogram, unspecified Abnormal mammogram Abnormal mammogram, unspecified documented in this encounter Care Teams Hunting Sales Associate Relationship Specialty Start Date End Date Nereida Sharif MD [address] [place] [address] PCP - General 04/26/10 documented as of this encounter
--- OUTSIDE RECORDS SUMMARY | 2024-02-01 01:36 | XMS_ITS | Encounter Summary ---
[place] [address] Care Team Providers Care Automated Equipment Engineer Technician Name Role Phone Nereida Sharif MD Primary Care Provider [phone] Reason for Visit * Reason Comments Follow-up Encounter Details Date Type Department Care Team (Late st Contact Info) Description 08/22/2022 1:30 PM EDT Office Visit [place] [address] Ting George APRN [facility] [place] [address] Breast cancer screening, high risk patient; Atypical [...] Progress Notes * Ting George APRN - 08/22/2022 1:30 PM EDT Images from the original note were not included. Patient ID: Kassandra Sierra is a 56 y.o. female. She is accompanied by her [...] No new chest pain or difficulty breathing. Nonew bony pain or tenderness. She had Covid last January and missed her 6 month follow up / mammogram. Kassandra denies other significant changes to her health since her [...] small benign hemangioma. A chest CT at [facility] was benign. Chemoprevention with tamoxifen was discussed and declined. Breast Cancer Risk Factors: History Oral contraceptive use No Menarche age 12 yo LMP 05/2018 Hormone replacement therapy No Family history of breast cancer Maternal aunt Family history of ovarian cancer Paternal aunt Ashkenazi Sabianism heritage No Known genetic mutation 01/07/20 - [facility]'s Multi Cancer Panel showed no mutations [...] bone Kidney Cancer (1) Maternal Cousin (61): SD's brother's daughter Leukemia (2) Maternal Grandmother (90), Paternal Uncle (55) Negative family history of: Glaucoma, Cataracts, Macular Degeneration, Retinal Detachment, Thyroid Disease, Heart Disease Social Hx: 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 They are active snowshoeing, walking, hiking, and riding their motorcycle. She has never smoked and does not drink alcohol. Physical Exam: General appearance: Alert, well-developed, well-nourished; in no acute distress. Skin: Warm and dry. Head: Normocephalic, atraumatic. Neck: Soft and supple without masses or cervical adenopathy. Cardiovascular: Normal rate, regular rhythm and [...] breasts are symmetric. The nipples are everted. I feel no obvious discrete or dominant [...] 2.9% Results: Imaging performed (breast MRI) [place] [facility] [place]. The results were pending at the [...] Mammo Screening Cad and Torito Bilateral; February 2023 Kassandra has extremely dense breast tissue. I [...] breast exams. Provided today's MRI is negative, will plan for her next bilateral screening mammogram is in 6 months, or sooner ifindicated. I will plan to see her for a clinical breast exam at that time. She will contact me if she develops any new breast changes or concerns prior to that appointment. She agrees to this plan. Breast cancer risk reduction: ?? Continue annual bilateral screening mammograms until life expectancy is <10 years and you remain in good health, or as long as you would consider treatment for a breast cancer if found. ?? Continue clinical breast exams at least once yearly. ?? Continue self breast awareness. ?? Get at least 150 minutes of cardiovascular exercise and 2 days of resistance/strength training per week. Ways to include exercise at home include yoga and bone building exercise videos online. ?? Eat a mainly plant-based Mediterranean style diet. Minimize processed foods, simple carbohydrates, sugars, and artificial sweeteners. ?? Do not smoke. ?? If consuming alcohol, limit to 1 drink or less per day. ?? Maintain or achieve a healthy weight. [...] free apps for your cell phone from [employer] (LessThan3) and [employer] (MD Lingo). All questions were answered to the patient's satisfaction and they state understanding and agreement with today's treatment plan. They are encouraged to follow up sooner if they develop any new or concerning symptoms. Ting George APRN Surgical Oncology P [phone] F [phone] [facility] documented in this encounter Plan of Treatment Upcoming Encounters Date Type Department Care Team (Late st Contact Info) Description 02/11/2024 2:15 PM EDT Office [place] [address] Julee Ibarra APRN [facility] [place] [address] 02/15/2024 10:45 AM EDT Office Visit General Surgery at [place] [phone] Jian Carmichael MD [facility] [place] [address] 03/12/2024 8:00 AM EDT Appointment Mammography/DXA at [place] [phone] Ting George APRN [facility] [place] [address] 03/12/2024 9:00 AM EDT Office Visit [place] [address] Ting George APRN [facility] [place] [address] documented as of this encounter Results * [...] who have questions please contact the health lawn care specialist that requested your imaging first. ? Electronically signed by: Mandy Quintanilla MD, [facility] ([phone]), at 02/26/2023 8:44 AM Narrative 02/26/2023 8:44 [...] breast cancer Screening mammogram for high-risk patient Atypical lobular hyperplasia of left breast Radial scar of left breast Dense breast tissue on mammogram At high risk for breast cancer Screening mammogram for high-risk patient documented in this encounter Care Teams Automated Equipment Engineer Technician Relationship Specialty Start Date End Date Nereida Sharif MD [address] [facility] [address] [place] [address] PCP - General 04/26/10 documented as of this encounter
--- OUTSIDE RECORDS SUMMARY | 2024-02-01 01:36 | XMS_ITS | Encounter Summary ---
[place] [address] Care Team Providers Care Sixth Grade Teacher Name Role Phone Nereida Sharif MD Primary Care Provider [phone] Encounter Details Date Type Department Care Team (Late st Contact Info) Description 06/24/2020 Orders [place] [phone] [facility] [place] [address] Social History Tobacco Use Types Packs/Day Years [...] 2:15 PM EDT Office [place] [phone] Julee [address]barra [facility] [place] [place] [address] 02/15/2024 10:45 AM EDT Office [place] [address] Jian Carmichael MD [facility] [place] [address] 03/12/2024 8:00 AM EDT Appointment Mammography/[place] [address] [address] [facility] [place] [address] 03/12/2024 9:00 AM EDT Office [place] [phone] [facility] [place] [address] documented as of this encounter Visit Diagnoses Not on filedocumented in this encounter Care Teams Sixth Grade Teacher Relationship Specialty Start Date End Date Nereida Sharif MD [address] [place] [address] [address] [facility] 1 [place] [address] PCP - General 04/26/10 documented as of this encounter
--- OUTSIDE RECORDS SUMMARY | 2024-02-01 01:36 | XMS_ITS | Encounter Summary ---
Author Organization [facility] [address] Care Team Providers Care Cyber Intel Planner Name Role Phone Nereida Sharif MD Primary Care Provider [phone] Encounter Details Date Type Department Care Team (Latest Contact Info) Description 02/03/2019 11:03 PM EDT - 02/03/2019 11:59 PM EDT Hospital [place] [address]1000 Cris Wilson MD [facility] [place] [address] Discharge Disposition: Home Social History Tobacco Use [...] 2:15 PM EDT Office [place] [address] Julee Ibarra, [facility] [place] [address] 02/15/2024 10:45 AM EDT Office Visit General Surgery at [place] [phone] Jian Carmichael MD [facility] [place] [address] 03/12/2024 8:00 AM EDT Appointment Mammography/DXA at [place] [phone] Ting George, [facility] [place] [address] 03/12/2024 9:00 AM EDT Office [place] [phone] Ting George, [facility] [place] [address] documented as of this encounter Procedures Procedure Name Priority Date/Time Associated Diagnosis Comments MAMMO BREAST PATHOLOGY EXCISION Routine 02/03/2019 11:03 PM EDT documented in this encounter Results * MAMMO BREAST PATHOLOGY EXCISION (02/03/2019 11:03 PM EDT) Narrative [facility] - 02/03/2019 11:03 PM EDT This exam is auto-finalizing. No interpretation was done. Cris Wilson MD IMG MAMMO ORDERABL ES [place], [place] documented in this encounter Visit Diagnoses Not on filedocumented in this encounter Care Teams Cyber Intel Planner Relationship Specialty Start Date End Date Nereida Sharif MD [address] [place] [address] PCP - General 04/26/10 documented as of this encounter
--- OUTSIDE RECORDS SUMMARY | 2024-02-01 01:36 | XMS_ITS | Encounter Summary ---
Author Organization [facility] [place] [address] Care Team Providers Care Machine Milker Name Role Phone Nereida Sharif MD Primary Care Provider [phone] Reason for Visit * Reason Onset Date Comments Results 01/20/2020 Encounter Details Date Type Department Care Team ([facility] Contact Info) Description 01/20/2020 Telephone Hematology [place] [address] Viry Villatoro LGC [facility] DR HEMATOLOGY/[place] [address] Results Social History Tobacco Use Types Packs/Day Years [...] encounter Miscellaneous Notes * Telephone Encounter - Viry Villatoro [facility] - 01/20/2020 12:45 PM EDT Left message asking Kassandra to call me back to go over her genetic test results. documented in this encounter Plan of Treatment Upcoming Encounters Date Type Department Care Team (Late Contact Info) Description 02/11/2024 2:15 PM EDT Office Visit Gastroenterology at [place] [address] Julee Ibarra, [facility] [place] [address] 02/15/2024 10:45 AM EDT Office Visit General Surgery at [address] Jian Carmichael MD [facility] [place] [address] 03/12/2024 8:00 AM EDT Appointment Mammography/DXA at [place] [phone] Ting George, [facility] [place] [address] 03/12/2024 9:00 AM EDT Office Visit General Surgery at [place] [address] Ting George, [facility] [place] [address] documented as of this encounter Visit Diagnoses Not on filedocumented in this encounter Care Teams Machine Milker Relationship Specialty Start Date End Date Nereida Sharif MD [address] [place] [address] PCP - General 04/26/10 documented as of this encounter
--- OUTSIDE RECORDS SUMMARY | 2024-02-01 01:36 | XMS_ITS | Encounter Summary ---
[place] [address] Care Team Providers Care Substation Superintendent Name Role Phone Nereida Sharif MD Primary Care Provider [phone] Encounter Details Date Type Department Care Team (Latest Contact Info) Description 02/26/2023 Travel Social History Tobacco Use Types Packs/Day [...] 2:15 PM EDT Office Visit [place] [phone] Julee Ibarra APRN [facility] [place] [address] 02/15/2024 10:45 AM EDT Office [place] [phone] Jian Carmichael MD [facility] [place] [address] 03/12/2024 8:00 AM EDT Appointment Mammography/[place] [address] Ting George [facility] [place] [place] [address] 03/12/2024 9:00 AM EDT Office Visit [place] [phone] Ting George [facility] [place] [place] [address] documented as of this encounter Visit Diagnoses Not on filedocumented in this encounter Care Teams Substation Superintendent Relationship Specialty Start Date End Date Nereida Sharif MD [address] [place] [address] PCP - General 04/26/10 documented as of this encounter
--- OUTSIDE RECORDS SUMMARY | 2024-02-01 01:36 | XMS_ITS | Encounter Summary ---
Author Organization [facility] [place] [address] Care Team Providers Care Director Game Name Role Phone Nereida Sharif MD Primary Care Provider [phone] Reason for Visit * Auth/Cert Specialty Diagnoses / Procedures Referred By Contac t Referred To Contact Diagnoses [facility] Procedures PRO EXCISE BREAST LES W XRAY MARKER EXCISION LESION, BREAST W/ PREOP.MARKER (NEEDLE LOC.) (WRVU 6.69) MODIFIER WITH NEEDLE LOC., LESION #1 Referral ID Status Reason Start Date Expiration Date Visits Re quested Visits Authorized [id number] 1 1 Encounter Details Date Type Department Care Team (Latest Contact Info) Description 01/31/2019 11:44 AM EDT - 01/31/2019 4:26 PM EDT Hospital Encounter [place] [address] Shala Magdaleno MD [facility] [place] [address] Discharge Disposition: Home Social History Tobacco Use [...] Sign Reading Time Taken Comments Blood Pressure 119/73 01/31/2019 4:15 PM EDT Pulse 65 01/31/2019 4:15 PM EDT Temperature 36.1 ??C (97 ??F) 01/31/2019 3:35 PM EDT Respiratory Rate 16 01/31/2019 4:15 PM EDT Oxygen Saturation 97% 01/31/2019 4:15 PM EDT Inhaled Oxygen Concentration - - Weight 74.8 kg (165 lb) 01/31/2019 12:17 PM EDT Height 160 cm (5' 3) 01/31/2019 12:17 PM EDT Body Mass Index 29.23 01/31/2019 12:17 PM EDT documented in this encounter Discharge Instructions * Discharge Instructions* Maxine Harris RN - 01/31/2019 12:32 PM EDT Okay to shower 24 hours Activity as tolerated Call [phone] with any questions Do not soak incision for 2 weeks Will call with pathology results in 5-7 days Ice pack to breast as needed Okay to use tylenol and/or ibuprofen as needed for pain (Recommend taking 650 mg of tylenol and 400 mg ibuprofen every 6 hours as needed) Wear bra for comfort (you may want to wear 24/7 until swelling improves) General Anesthesia Discharge Instructions Go home and rest. You may be sleepy for several hours. Take it easy as sudden position changes may cause nausea and/or dizziness. Use caution on stairs. Do not smoke if you are alone. Follow a light to regular diet as tolerated today. If nausea occurs, start with clear liquids, and progress slowly to a regular diet. Do not drive, operate machinery, drink alcoholic beverages or make any legal decisions after havinggeneral anesthesia. The medications given change your reaction time and alter your judgement. IV site -- slight redness is normal, you can use warm compresses. If tenderness and redness increases or foul drainage occurs, please contact your M.D. Patients who have had endotracheal tubes/LMA (tubes used by the anesthesia staff to ensure a safe airway during your operation) may have a sore throat. This is normal and cold liquids or soothing lozenges will help ease this discomfort. Narcotic pain medications can cause constipation, please ask the surgeons office what they recommend for prevention of this. Some non-pharmaceutical means of constipation prevention include increasing intake of fluids, eating more fruits and vegetables as well as fruit juices. If you are uncomfortable and/or unable to urinate within 8 hours of discharge and it is before 5 pm, call your physician. If it is after 5pm go to the closest emergency room or call the hospital ski lift operator at [phone] and ask for physician health promotion manager covering for your physician. Questions or problems after 5pm or on a weekend: Call the [facility] ski lift operator at and ask for the physician health promotion manager covering for your doctor. At 1200 noon you received 1000 mg of acetaminophen- Your next dose should not be taken before 8 hours have passed. Next dose not before- 2000 You should not take more than a total of 3000 mg of acetaminophen in a 24 hour period. = documented in this encounter Medications at Time of Discharge Medication Sig Dispensed Refills Start Date End Date hydroCHLOROthiazide (HYDRODIURIL) 25 mg Tablet Take 25 mg by mouth as needed. documented as of this encounter Progress Notes * Gretchen Flower RN - 01/31/2019 4:03 PM EDT Pt is alert and oriented x4 sitting up on stretcher visiting with spouse, Pt has no c/o pain or nausea. Left breast incision dry/intact with liquid adhesive, abd pad dry to area. Discharge instructions reviewed with pt and spouse, verbalized understanding documented in this encounter H&P Notes * Shala Magdaleno MD - 01/31/2019 11:16 AM EDT Patient Name: Kassandra Sierra Patient Age: 53 y.o. Birthdate: 1965 Admit date: (Not on file) Attending Physician: Shala Magdaleno MD HPI Kassandra is seen in surgical consultation at the request of Dr. Wlison. She presents to discuss a recent abnormal mammogram and possible excisional biopsy to rule out occult malignancy. ?? Kassandra presented for screening mammogram . This revealed a suspicious spiculated mass in the upperouter left breast. Call back views confirmed a highly suspicious, spiculated 1cm mass. Of note, theright breast was normal. Biopsy revealed radial scar with focal, incidental ALH. ?? Kassandra presents to discuss excision. She has no prior breast biopsies. She denies any known masses, skin changes, nipple discharge or adenopathy. ? Past??Medical??History Past Medical History: Diagnosis Date ??? Amblyopia ? OS ??? 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 Neuromuscular disorder ? Herniated cervical ??? Strabismus ?? HTN ? SH: . Non smoker. Denies etoh use. ? Review of Systems Constitutional: Negative. HENT: Negative. Eyes: Negative. Respiratory: Negative. Cardiovascular: Negative. Gastrointestinal: Negative. Endocrine: Negative. Genitourinary: Negative. Musculoskeletal: Negative. Allergic/Immunologic: Negative. Neurological: Negative. Hematological: Negative. Psychiatric/Behavioral: Negative. ? Objective: Physical Exam Constitutional: She is oriented to person, place, and time. She appears well- developed and well-nourished. HENT: Head: Atraumatic. Cardiovascular: Normal rate and regular rhythm. Pulmonary/Chest: Effort normal and breath sounds normal. Neurological: She is alert and oriented to person, place, and time. Skin: Skin is warm and dry. Psychiatric: She has a normal mood and affect. ?? Imaging: as in hpi. I have reviewed mammogram and ultrasound. ?? Assessment and Plan: ?? Kassandra is a 53 yo female with [...] screening MRI) once surgical pathology is available. ?? Risks of surgery including bleeding, infection and possible need for additional surgery were discussed and consent obtained. Broke leg this week. Plan to proceed with surgery with post op aspirin to prevent DVT and intraop venodynes. ? documented in this encounter Miscellaneous Notes * Op Note - Shala Magdaleno MD - 01/31/2019 3:30 PM EDT [facility] [place] Patient Name: Kassandra LevyBlas : [id number] MR#: [id number] Case Date: 01/31/2019 Surgeon: Surgeon(s) and Role: * Shala Magdaleno MD - Primary * Adrianne Chawla MD - Resident Preoperative diagnosis: ALH / sclerosing lesion Postoperative diagnosis: ALH /sclerosing lesion Procedure(s) (LRB): EXCISION LESION, BREAST W/ PREOP.MARKER (NEEDLE LOC.) (WRVU 6.69) (Left) MODIFIER WITH NEEDLE LOC., LESION #1 (N/A) Anesthesia: MAC Estimated Blood Loss: 53 mL Specimens removed during surgery: Order Name Source Comment Collection Info Order Time SPECIMEN TO PATHOLOGY left radial scar Left breast excisional biopsy excision Yes 01/31/2019 3:04 PM Time specimen removed from patient: 3:03 PM Number of tissue samples (in container) 1 Drains: * No LDAs found * Surgical Closure: Primary Closure - skin incision is completely closed without any wires, anthony, drains or other devices Disposition: aroused from sedation, and taken to the recovery room in a stable condition Condition: doing well without problems (Please see the Surgical Encounter Summary for any Implant and Specimen details pertinent to this patient.) HPI/Surgical Indications: Kassandra is a 53 yo female with a radial scar with focal ALH on recent biopsy after abnormal screening mammogram. She presents today for excisional biopsy. Procedure Description: Kassandra presented to radiology for wire localization of the asymmetry in the upper central left breast. She then was admitted through Same-Day Surgery. She was then brought to the Operating Room and laid supine on the operating table. Sedatives were administered intravenously. The left breast was prepped and draped in sterile fashion. Time-out confirmed the patient's identity, the correct surgical site, and the administration of prophylactic antibiotics. Once the time out had been confirmed, attention was turned to the breast. Here an incision was made at the superior areolar border. A flap was elevated and we brought the wire into the wound. A circumferential core of tissue was widely excised. The tissue was sent to Radiology where the clip was confirmed to be central in the surgical specimen. The wound was irrigated and hemostasis achieved. We closed the cavity. The wound wasclosed in layers. Sterile dressings were applied. Infection Bundle used? N/A Attestation: Case Date: 01/31/2019 I was present and I participated during the entire procedure (does not need to include opening and closing). SHALA MAGDALENO MD 01/31/2019 documented in this encounter Plan of Treatment Upcoming Encounters Date Type Department Care Team (Late st Contact Info) Description 02/11/2024 2:15 PM EDT Office Visit [place] [address] Julee Ibarra, [facility] [place] [address] 02/15/2024 10:45 AM EDT Office Visit [place] [phone] Jian Carmichael MD [facility] [place] [address] 03/12/2024 8:00 AM EDT Appointment Mammography/[place] [phone] Ting George, [facility] [place] [address] 03/12/2024 9:00 AM EDT Office Visit General Surgery at [place] [phone] Ting George, [facility] [place] [address] documented as of this encounter Procedures Procedure Name Priority Date/Time Associated Diagnosis Comments SPECIMEN TO PATHOLOGY Routine 01/31/2019 3:04 PM EDT SURGICAL PATHOLOGY REPORT Routine 01/31/2019 3:03 PM EDT MODIFIER WITH NEEDLE LOC., LESION #1 01/31/2019 2:09 PM EDT ALH Excise Breast Les W Xray Marker ([id number]) 01/31/2019 2:09 PM EDT ALH documented in this encounter Results * Specimen to Pathology (01/31/2019 3:04 PM EDT) AP Specimen 01/31/2019 3:04 PM EDT 01/31/2019 3:30 PM EDT Narrative [facility] - 01/31/2019 3:30 PM EDT Specimen requisition ordered. ??Separate Pathology report to follow Resulting Agency Comment Spec In Lab Shala Magdaleno MD PATHOLOGY/CYTOLOGY ORDERABLES [facility] [place] [address] * Surgical Pathology Report (01/31/2019 3:03 PM EDT) Final Diagnosis [id number] ? Location: [facility] The signing pathologist has (i) examined the relevant preparation(s) for the specimen(s) and (ii) rendered or confirmed the diagnosis(es). . ?Surgical Pathology DIAGNOSIS A - Left breast, excision - - Residual complex sclerosing lesion with usual ductal hyperplasia, cysts, adenosis, and apocrine metaplasia, in background of biopsy related changes. Electronically signed by: ??Alana Elias DO Verified: ??02/06/2019 ?Pathologist Performed at: ??-[facility] Dept. [place]ology, [place], [place] CLINICAL INFORMATION Specimen Submitted: A - Left breast excisional biopsy Clinical History and Diagnosis: Left radial scar SPECIMEN PROCESSING A - Labeled/Fixative: Left breast excisional biopsy, fresh. Quantity/Size/Pj ght: ??Single, 4.7 x 2.8 x 1.3 cm, 5 g. SPECIMEN DESCRIPTION Resection Specimen: Intact, excisional biopsy with a needle localization wire in place. Specimen radiograph: per [facility] radiology Marker clip and intact needle localization device within the specimen.. Specimen Description: Fibrofatty portion of breast parenchyma, unoriented Tissue Sections: The specimen is serially sectioned perpendicular to the long axis into XII slices, each averaging 0.4 cm in thickness. Parenchyma: Predominantly fibrous with diffuse hemorrhage. Biopsy marker clip identified within slice VII Sections/Processi ng: Entirely submitted in 10 cassettes as follows: ?A1: ??Slice I ?A2: ??Slice II ?A3: ??Slice III ?A4: ??Slice IV ?A5: ??Slice V ?A6: ??Slice ?A7: ??Slice VII ?A8: ??Slice VIII ?A9: ??Slice IX and X ?A10: ??Slice XI and XII Ischemic Time: 1.2 hours ??sns 02/06/2019 2:23 PM EDT [facility] BREAST STRUCTURE / Unknown 01/31/2019 3:03 PM EDT 01/31/2019 3:03 PM EDT Shala Magdaleno MD PATHOLOGY/CYTOLOGY ORDERABLES [facility] [place] [address] documented in this encounter Visit Diagnoses Not on filedocumented in this encounter Administered Medications Inactive Administered Medications - up to 3 most recent administrations Medication Order MAR Action Action Date Dose Rate Site acetaminophen (TYLENOL) tablet 1,000 mg 1,000 mg, Oral, ONCE, 1 dose, On Sun01/31/19 at 1215, Administer with SIP of H2O only., Day of Surgery (Day of Procedure), Routine Given 01/31/2019 12:15 PM EDT 1,000 mg aspirin tablet 325 mg 325 mg, Oral, DAILY, First dose on Sun01/31/19 at 1245, Until Discontinued, Routine Given 01/31/2019 12:45 PM EDT 325 mg lactated ringers infusion 1,000 mL, at 100 mL/hr, Intravenous, CONTINUOUS, Starting on Sun01/31/19 at 1215, Until Sun01/31/19 at 1624, Day of Surgery (Day of Procedure) New Bag 01/31/2019 12:15 PM EDT 1,000 mLs 100 mL/hr traMADol (ULTRAM) tablet 50 mg 50 mg, Oral, EVERY 6 HOURS PRN, Starting on Sun01/31/19 at 1530, Until Sun01/31/19 at 1827, Pain, Routine documented in this encounter Active and Recently Administered Medications Times are shown in EDT. Scheduled Medication Order 01/29/2019 01/30/2019 01/31/2019 acetaminophen (TYLENOL) tablet 1,000 mg (COMPLETED) 1,000 mg, Oral, ONCE, 1 dose, On Sun01/31/19 at 1215, Administer with SIP of H2O only., Day of Surgery (Day of Procedure), Routine 1215 (Given - Provid er: Maxine Harris RN) aspirin tablet 325 mg 325 mg, Oral, DAILY, First dose on Sun01/31/19 at 1245, Until Discontinued, Routine 1245 (Given - Provid er: Maxine Harris RN) ceFAZolin (ANCEF) 2g in dextrose 5% 100 mL (COMPLETED) 2 g, Intravenous, EVERY 3 HOURS, 1 dose, First dose on Sun01/31/19 at 1215, Administer over 30 Minutes, Intra-Operative (Intra-Procedure), Indication for (Active or Suspected): Prophylaxis 1416 (Given - Provid er: Grace Price CRNA) Continuous Medication Order 01/29/2019 01/30/2019 01/31/2019 lactated ringers infusion (CANCELED) 1,000 mL, at 100 mL/hr, Intravenous, CONTINUOUS, Starting on Sun01/31/19 at 1215, Until Sun01/31/19 at 1624, Day of Surgery (Day of Procedure) 1215 (New Bag - Prov ider: Maxine Harris RN)1525 (Anesthesia Volume Adjustment - Provider: Grace Price CRNA)1537 (Stopped - Provider: Grace Price CRNA) PRN Medication Order 01/29/2019 01/30/2019 01/31/2019 BUpivacaine (PF) (MARCAINE) 0.5 % (5 mg/mL) injection (CANCELED) ONCE PRN, Starting on Sun01/31/19 at 1430, Until Sun01/31/19 at 1827, Intra-Operative (Intra-Procedure), Routine 1430 (Given - Provid er: Shala Magdaleno MD - Comment: Mixed 1:1 with 1% lidocaine)1452 (Given - Provider: Shala Magdaleno MD - Comment: 1% lidocaine mixed 1:1 with 0.5% Bupivacaine plain. 2cc total given.)1511 (Given - Provider: Shala Magdaleno MD - Comment: 1% lidocaine mixed 1:1 with 0.5% Bupivacaine plain. 10cc total given.) lidocaine (PF) (XYLOCAINE) 10 mg/mL (1 %) injection (CANCELED) ONCE PRN, Starting on Sun01/31/19 at 1430, Until Sun01/31/19 at 1827, Intra-Operative (Intra-Procedure), Routine 1430 (Given - Provid er: Shala Magdaleno MD - Comment: Mixed 1:1 with 0.5% bupivacaine)1453 (Given - Provider: Shala Magdaleno MD - Comment: 1% lidocaine mixed 1:1 with 0.5% Bupivacaine plain. 2cc total given.)1512 (Given - Provider: Shala Magdaleno MD - Comment: 1% lidocaine mixed 1:1 with 0.5% Bupivacaine plain. 10cc total given.) traMADol (ULTRAM) tablet 50 mg 50 mg, Oral, EVERY 6 HOURS PRN, Starting on Sun01/31/19 at 1530, Until Sun01/31/19 at 1827, Pain, Routine documented in this encounter Care Teams Director Game Relationship Specialty Start Date End Date Nereida Sharif MD [address] [place] [address] PCP - General 04/26/10 documented as of this encounter
--- OUTSIDE RECORDS SUMMARY | 2024-02-01 01:36 | XMS_ITS | Encounter Summary ---
[place] [address] Care Team Providers Care Director Of Extension Work Name Role Phone Nereida Sharif MD Primary Care Provider [phone] Encounter Details Date Type Department Care Team (Latest Contact Info) Description 07/18/2021 Travel Social History Tobacco Use Types Packs/Day [...] 2:15 PM EDT Office [place] [phone] Julee Ibarra APRN [facility] [place] [address] 02/15/2024 10:45 AM EDT Office [place] [phone] Jian Carmichael MD [facility] [place] [address] 03/12/2024 8:00 AM EDT Appointment Mammography/[place] [address] Ting George [facility] [place] [address] 03/12/2024 9:00 AM EDT Office [place] [phone] Ting George [facility] [place] [address] documented as of this encounter Visit Diagnoses Not on filedocumented in this encounter Care Teams Director Of Extension Work Relationship Specialty Start Date End Date Nereida Sharif MD [address] [place] [address] PCP - General 04/26/10 documented as of this encounter
--- OUTSIDE RECORDS SUMMARY | 2024-02-01 01:36 | XMS_ITS | Encounter Summary ---
Author Organization [facility] Address [facility] [place] [address] Care Team Providers Care Field Marketing Associate Name Role Phone Nereida Sharif MD Primary Care Provider [phone] Reason for Visit * Reason Comments Follow-up Encounter Details Date Type Department Care Team (Late st Contact Info) Description 03/05/2019 2:15 PM EDT Office [place] [address] Carleen Magdaleno MD [facility] [place] [address] Abnormal mammogram Social History Tobacco Use Types [...] as of this encounter Progress Notes * Carleen Magdaleno MD - 03/05/2019 2:15 PM EDT HPI Kassandra returns following excisional right breast biopsy. ?? Kassandra presented for screening mammogram in November,. This revealed a suspicious spiculated massin the upper outer left breast. Call back views confirmed a highly suspicious, spiculated 1cm mass.Of note, the right breast was normal. Biopsy revealed radial scar with focal, incidental ALH. ?? Kassandra proceeded with excisional biopsy. Pathology revealed residual sclerosing lesion with usual ductal hyperplasia. She has recovered extremely well and has pain, fevers, chills or drainage. ? Past??Medical??History ? Past Medical History: Diagnosis Date ??? Amblyopia ? OS ??? 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 Neuromuscular disorder ? Herniated cervical ??? Strabismus ?? HTN ? SH: . ??Non smoker. Denies etoh use. On exam, left breast with well healed periareolar incision. No skin changes or drainage.. A/P Kassandra has recovered well from surgery. She has no evidence of malignancy nor additional atypia. We discussed increased lifetime risk of breast cancer development. I have recommended twice annual breast exams and annual mammogram. Kassandra will see her PCP in June for exam and I will set up alternating CBE with our [employer] in concordance with screening mammogram in December,. Kassandra will call if any issues arise. ? documented in this encounter Plan of Treatment Upcoming Encounters Date Type Department Care Team (Late st Contact Info) Description 02/11/2024 2:15 PM EDT Office Visit Gastroenterology at [place] [phone] Julee Ibarra APRN [facility] [place] [address] 02/15/2024 10:45 AM EDT Office [place] [address] Jian Carmichael MD [facility] [place] [address] 03/12/2024 8:00 AM EDT Appointment Mammography/[place] [address] Ting George APRN [facility] [place] [address] 03/12/2024 9:00 AM EDT Office [place] [address] Ting George APRN [facility] [place] [address] documented as of this encounter Visit Diagnoses Diagnosis Abnormal mammogram Abnormal mammogram, unspecified documented in this encounter Care Teams Field Marketing Associate Relationship Specialty Start Date End Date Nereida Sharif MD [address] [place] [address] PCP - General 04/26/10 documented as of this encounter
--- OUTSIDE RECORDS SUMMARY | 2024-02-01 01:36 | XMS_ITS | Encounter Summary ---
[place] [address] Care Team Providers Care Clinical Resource Nurse Name Role Phone Nereida Sharif MD Primary Care Provider [phone] Encounter Details Date Type Department Care Team (Latest Contact Info) Description 01/25/2021 7:55 AM EDT - 01/25/2021 11:59 PM EDT Hospital Encounter Mammography/[place] [address] Ting George APRN [facility] [place] [address] Atypical lobular hyperplasia of left breast; Radial scar of left breast; Dense breast tissue on mammogram; Screening mammogram for high-risk patient Discharge Disposition: Home Social History Tobacco [...] 2:15 PM EDT Office Visit Gastroenterology at [place] [address] Julee Ibarra [facility] [place] [address] 02/15/2024 10:45 AM EDT Office [place] [address] Jian Carmichael MD [facility] [place] [address] 03/12/2024 8:00 AM EDT Appointment Mammography/DXA at [place] [phone] Ting George [facility] [place] [address] 03/12/2024 9:00 AM EDT Office [place] [address] Ting George [facility] [place] [address] documented as of this encounter Procedures Procedure Name Priority Date/Time Associated Diagnosis Comments MAMMO SCREENING CAD AND TORITO BILATERAL Routine 01/25/2021 8:15 AM EDT Atypical lobular hyperplasia of left breast Radial scar of left breast Dense breast tissue on mammogram Screening mammogram for high-risk patient documented in this encounter Results * Mammo Screening Cad [...] patient documented in this encounter Care Teams Clinical Resource Nurse Relationship Specialty Start Date End Date Nereida Sharif MD [address] [place] [address] PCP - General 04/26/10 documented as of this encounter
--- OUTSIDE RECORDS SUMMARY | 2024-02-01 01:36 | XMS_ITS | Encounter Summary ---
[place] [address] Care Team Providers Care Video Production Intern Name Role Phone Nereida Sharif MD Primary Care Provider [phone] Reason for Referral * Diagnostic Test (Routine) - Closed Specialty Diagnoses / Procedures Referred By Shellie davis Referred To Contact Radiology Diagnoses Atypical lobular hyperplasia of left breast Radial scar of left breast Dense breast tissue on mammogram At high risk for breast cancer Breast cancer screening, high risk patient Procedures MRI Breast wwo Contrast Bilat Ting George APRN [facility] [place] [address] [place] [address] Referral ID Status Reason Start Date Expiration Date V isits Requested Visits Authorized [id number] Closed Specialty Service Requested 01/25/2021 07/28/2022 1 1 Reason for Visit * Reason Comments Follow-up Encounter Details Date Type Department Care Team (Late st Contact Info) Description 01/25/2021 9:20 AM EDT Office Visit [place] [address] Ting George APRN [facility] [place] [address] Encounter for screening mammogram for high-risk patient; Atypical lobular hyperplasia of left breast; Radial scar of left breast; Dense breast tissue on mammogram; At high risk for breast cancer; Breast cancer screening, high risk patient (Not by Mammogram) Social History Tobacco Use Types Packs/Day Years [...] Sign Reading Time Taken Comments Blood Pressure 144/87 01/25/2021 9:08 AM EDT Pulse 69 01/25/2021 9:08 AM EDT Temperature - - Respiratory Rate 16 01/25/2021 9:08 AM EDT Oxygen Saturation 99% 01/25/2021 9:08 AM EDT Inhaled Oxygen Concentration - - Weight 81.3 kg (179 lb 4.8 oz) 01/25/2021 9:08 A M EDT Height - - Body Mass Index 31.76 01/31/2019 12:17 PM EDT documented in this encounter Patient Instructions * Patient Instructions* Ting George APRN - 01/25/2021 9:20 AM EDT Nonpharmacologic measures to help decrease your risk [...] free apps for your cell phone from [employer] ([employer]) and [employer] ([employer]). documented in this encounter Progress Notes * Ting George APRN - 01/25/2021 9:20 AM EDT Images from the original note [...] views confirmed a highly suspicious, spiculated 1-cm mass.Of note, the right breast was normal. [...] small benign hemangioma. A chest CT at [facility] was benign. Chemoprevention with tamoxifen was discussed and declined. Breast Cancer Risk Factors: History Oral contraceptive use No Menarche age 12 yo LMP 05/2018 Hormone replacement therapy No Family history of breast cancer Maternal aunt Family history of ovarian cancer Paternal aunt Known genetic mutation 01/07/20 - [employer] Multi Cancer Panel showed no mutations detected Previous radiation to chest No Family History Problem (# of Occurrences) Relation (Name,Age of Onset) Amblyopia (1) Sister Breast Cancer (1) Maternal Aunt (60): in her 60s Colorectal Cancer (1) Paternal Aunt (75) Diabetes (1) Sister Hypertension (1) Father Kidney Cancer (1) Maternal Cousin (61): MGM's brother's daughter Leukemia (2) Maternal Grandmother (90), Paternal Uncle (55) Ovarian Cancer (1) Paternal Aunt (75) Prostate Cancer (1) Father (73): metastatic to bone Stomach Cancer (1) Paternal Grandmother (37): at 37 Strabismus (1) Sister Negative family history of: Glaucoma, Cataracts, Macular Degeneration, Retinal Detachment, Thyroid Disease, Heart Disease Social Hx: 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 She has never smoked and does not [...] Average 10-Year Risk 2.9% Results: Imaging performed (bilateral mammogram) at [facility] today shows no evidence of malignancy, BIRADS Category 1 with extremely dense breast tissue. The results were reviewed with her at today's appointment. Assessment: Clinical breast exam notable for fibroglandular breast tissue bilaterally without notable masses, skin changes, dimpling, or nipple discharge. Stable exam. Plan: 1. Encounter for screening mammogram for high-risk patient 2. Atypical lobular hyperplasia of left breast 3. Radial scar of left breast 4. Dense breast tissue on mammogram 5. At high risk for breast cancer 6. Breast cancer screening, high risk patient (Not by Mammogram) - MRI Breast wwo Contrast Bilat; July 2021 Kassandra has extremely dense breast tissue. I [...] possibly minimize the extent of treatment required. She is interested in continuing this. Kassandra meets the ACS criteria for the use of breast MR, namely she has a greater than 20% lifetime risk of developing breast cancer, and the sensitivity of mammography may be limited, so I think the use of breast MR forscreening is reasonable. Therefore, we will plan to continue staggered annual mammogram and MRI screenings with semi-annual clinical breast exams. We also discussed chemoprevention with the use of tamoxifen. Kassandra's 10 year risk of developing breast cancer is 21.5% compared to the general population???s 10-year risk of approximately 2.9%. Tamoxifen has been shown to reduce the risk of breast cancer in women at increased risk. Tamoxifen, if used for approximately 5 years, reduces ones risk by about half (50%). Side effects, including but not limited to hot flashes, blood clots, and increased risk for endometrial cancer, were reviewed. She declined at this time. Routine recommendations discussed with the patient including [...] free apps for your cell phone from [facility] ([employer]) and [employer] ([employer]). All questions were answered to the patient's satisfaction and they state understanding and agreement with today's treatment plan. They are encouraged to follow up sooner if they develop any new or concerning symptoms. Total time spent [id number] with this patient was 30 minutes with greater than 50% of the time spent in counseling, coordination of care, and discussion of treatment plan. Ting George APRN Surgical Oncology P [phone] F [phone] [facility] documented in this encounter Plan of Treatment Upcoming Encounters Date Type Department Care Team (Late st Contact Info) Description 02/11/2024 2:15 PM EDT Office Visit Gastroenterology at [place] [phone] Julee Ibarra APRN [facility] [place] [address] 02/15/2024 10:45 AM EDT Office [place] [address] Jian Carmichael MD [facility] [place] [address] 03/12/2024 8:00 AM EDT Appointment Mammography/[place] [address] Ting George APRN [facility] [place] [address] 03/12/2024 9:00 AM EDT Office Visit [place] [address] Ting George APRN [facility] [place] [address] (work) documented as of this encounter Results * [...] who have questions please contact the health career consultant that requested your imaging first. ? Electronically signed by: Cris Wilson MD, [facility] ([phone]), at 07/18/2021 1:29 PM Narrative 07/18/2021 1:29 [...] contrast enhancement curve analysis was performed, using [employer] software. COMPARISON STUDIES: This study was compared [...] lesion, consistent with a benign process. Ting George APRN IMG MRI ORDER BELKYS documented in this encounter Visit Diagnoses Diagnosis Encounter for screening mammogram for high-risk patient Atypical lobular hyperplasia [...] patient documented in this encounter Care Teams Video Production Intern Relationship Specialty Start Date End Date Nereida Sharif MD [address] [place] [address] PCP - General 04/26/10 documented as of this encounter
--- OUTSIDE RECORDS SUMMARY | 2024-02-01 01:36 | XMS_ITS | Encounter Summary ---
[place] [address] Care Team Providers Care Package Line Relief Operator Name Role Phone Nereida Sharif MD Primary Care Provider [phone] Reason for Referral * Diagnostic Test (Routine) - Closed Specialty Diagnoses / Procedures Referred By Shellie davis Referred To Contact Radiology Diagnoses Atypical lobular hyperplasia of left breast Dense breast tissue on mammogram Breast cancer screening, high risk patient Procedures MRI Breast wwo Contrast Bilat [facility] Gen Surgery [address] [place] [address] [facility] [place] [place] [address] Referral ID Status Reason Start Date Expiration Date V isits Requested Visits Authorized [id number] Closed Specialty Service Requested 06/25/2020 12/23/2021 1 1 Encounter Details Date Type Department Care Team (Late st Contact Info) Description 06/25/2020 Orders [place] [address] Alyce Bartlett, RN Atypical lobular hyperplasia of left breast; Dense breast tissue on mammogram; Breast cancer screening, high risk patient (Not [...] 2:15 PM EDT Office Visit Gastroenterology at [place] [address] Julee Ibarra, [facility] [place] [address] 02/15/2024 10:45 AM EDT Office Visit General Surgery at [address] Jian Carmichael MD [facility] [place] [address] 03/12/2024 8:00 AM EDT Appointment Mammography/[place] [address] Ting George, [facility] [place] [address] 03/12/2024 9:00 AM EDT Office Visit General Surgery at [place] [phone] Ting George [facility] [place] [address] documented as of this encounter Results * (ABNORMAL) MRI Breast wwo Contrast Bilat (07/19/2020 8:30 AM EST) Anatomical Region Laterality Modality Breast Bilateral Magnetic Resonan ce Impressions 07/20/2020 8:50 AM EST Left breast: Upper/outer well-circumscribed mass as above, with benign imaging features, consistent with fibroadenoma. Postprocedural change without enhancement abnormalities. Scattered T2 bright foci within the left breast, most consistent with benign background parenchymal enhancement. Right breast: Scattered foci, similar to the contralateral side, scattered cysts, T2 bright, most consistent with benign background parenchymal enhancement. No suspicious findings. Within the upper/paracentral right sternum there is a well-circumscribed finding, small mass, T2 bright, and most consistent with hemangioma. UNEXPECTED FINDING. RECOMMENDATION: Continued high risk screening, with annual gadolinium enhanced MRI and mammography. Recommend assessment, to document stability, of right sternal findings most consistent with small benign hemangioma. Discussed with musculoskeletal radiology, who concur. LEFT BREAST BI-RADS Category 2: Benign Findings RIGHT BREAST BI-RADS Category 2: Benign Findings I have personally reviewed the image(s) and the resident's interpretation and agree with the findings, Main Sheehan MD at 07/20/2020 8:50 AM Thank you for letting us participate in the care of this patient. For questions regarding this report, please contact the number below. ? Narrative 07/20/2020 8:50 AM EST BILATERAL BREAST MRI CLINICAL INDICATION: Screening of extremely dense breast tissue. History of focal ALH in the left breast, 54-year-old female. TECHNIQUE: Multiplanar sequences were obtained pre- and post- Dotarem enhancement, to include SPGR weighted dynamic run-off and subtraction sequences obtained after the intravenous administration of 16 ccs of Dotarem. Computer algorithm analysis for lesion detection and kinetic contrast enhancement curve analysis was performed, using [employer] software. COMPARISON STUDIES: Compared and/or correlated with prior studies including multiple mammograms and ultrasounds. FINDINGS: Background Enhancement Pattern (first post Dotarem image): Minimal (0-25% breast) Amount of Fibroglandular Tissue: extremely dense Left breast: Postsurgical change without abnormal enhancement by morphology or kinetics are seen in the left breast. Within the upper/outer left breast mid parenchyma there is a 9 mm well-circumscribed mass, bright on T2, with persistent kinetics characteristics and dark internal septations. Scattered foci are noted within the left breast, without suspicious features. Right breast: Scattered foci similar to the contralateral side, with T2 bright corroboration, scattered cysts, no suspicious imaging characteristics by morphology or enhancement kinetics. Lymph Node Basins/Other: There is no evidence of internal mammary or axillary adenopathy. No significant abnormalities are noted within the skin. Within the superior aspect of the paracentral right sternum there is a well circumscribed 6 to 7 mm T2 bright finding with peripheral enhancement, well-circumscribed, without additional findings noted within the bony substrate. Resulting Agency Comment Unexpected Finding Ting Oanh George APRN IM MRI ORDER [facility] documented in this encounter Visit Diagnoses Diagnosis Atypical lobular hyperplasia of left breast Dense breast tissue on mammogram Breast cancer screening, high risk patient Screening mammogram for high-risk patient Atypical lobular hyperplasia of left breast Dense breast tissue on mammogram Breast cancer screening, high risk patient Screening mammogram for high-risk patient documented in this encounter Care Teams Package Line Relief Operator Relationship Specialty Start Date End Date Nereida Sharif MD [address] [place] [address] PCP - General 04/26/10 documented as of this encounter
--- OUTSIDE RECORDS SUMMARY | 2024-02-01 01:36 | XMS_ITS | Encounter Summary ---
Author Organization [facility] [place] [address] Care Team Providers Care Beck Operator Name Role Phone Nereida Sharif MD Primary Care Provider [phone] Reason for Visit * Reason Comments Genetic Evaluation * Consultation (Routine) - Closed Specialty Diagnoses / Procedures Referred By Shellie davis Referred To Contact Hematology and Oncology Diagnoses high risk and family history of breast cancer prefers [facility] Carleen Magdaleno MD [facility] [place] [address] [facility] Hem Onc [address] [place] [address] Referral ID Status Reason Start Date Expiration Date Visits Re quested Visits Authorized [id number] Closed 01/22/2019 01/22/2020 1 1 Encounter Details Date Type Department Care Team (Late st Contact Info) Description 01/07/2020 9:30 AM EDT Office Visit Hematology [place] [address] Viry Villatoro, [facility] HEMATOLOGY/[place] [address] Family history of breast cancer; FH: ovarian cancer; FH: GI cancer Social History Tobacco Use Types Packs/Day [...] as of this encounter Progress Notes * Viry Villatoro LGC - 01/07/2020 9:30 AM EDT Kassandra LevySalma was seen by NESHA Villarreal in consultation at the request of Carelen Magdaleno to advise regarding possible heritable predisposition to cancer. I spent 30 minutes of this face to face encounter with the patient and her gathering medical and family history and discussing the likelihood of a genetic predisposition to cancer and the option of genetic testing. Reason for referral/Chief complaint Family history of breast, ovarian, metastatic prostate and other cancers Medical history Cancer hx and treatment: No personal history of cancer. Left breast biopsy revealed radial scar with ALH which increases risk for breast cancer. Age at 1st menses: 12 Age at 1st child: n/a Menopause status: kimberly-menopause Hormone replacement therapy use: none Current cancer screening: Colonoscopy at age 53 detected 1 polyps, follow-up recommended in 4-5 years. Twice yearly clinical breast exams and annual mammogram. Family History of Cancer Problem Relation Age of Onset ??? Prostate Cancer Father 73 metastatic to bone ??? Breast Cancer Maternal Aunt 60 ??? Stomach Cancer Paternal Grandmother 37 at 37 ??? Leukemia Maternal Grandmother 90 ??? Leukemia Paternal Uncle 55 ??? Colorectal Cancer Paternal Aunt 75 ??? Ovarian Cancer Paternal Aunt 75 ??? Kidney Cancer Maternal Cousin 61 MGM's brother's daughter Maternal ethnic background is Norwegian, not sure if any Ashkenazi Tenriism heritage. Paternal ethnic background is Norwegian, not sure if any Ashkenazi Tenriism heritage. Genetic risk assessment Based on the family history of her father having had metastatic prostate cancer, her paternal grandmother having had gastric cancer prior to age 40 and a paternal aunt with both colon and ovarian cancer the likelihood that Kassandra would be found to have a mutation in a cancer predisposition gene such as BRCA1, BRCA2, or mismatch repair genes related to Amaya syndrome is high enough to offer the option of genetic testing. Panel genetic testing for an inherited predisposition to cancer, includingbreast, gynecologic, gastrointestinal and other cancers was discussed. The risks, benefits and limitations of panel genetic testing were reviewed, specifically a high rate of identifying a variant ofuncertain significance, lack of knowledge of cancer risk for newly identified, moderate risk genes included in the panel and lack of effective screening, as well as cancer risk for other cancers not observed in the family. Kassandra opted for testing with [employer]'s Multi-Cancer Panel, a next generation sequencing panel that simultaneously analyzes 84 genes, including BRCA1, BRCA2, and Amaya syndrome related genes that contribute to increased risk for cancer. Kassandra was consented. Her blood sample was drawn and sent to [facility]. Testing will take up to 3 weeks. Kassandra will be contacted via telephone once her test results become available. If positive, we will offer a follow-up appointment. At that time, we will discuss withKassandra the implications that this test result may have for her, as well as her family members. We will also provide Kassandra with screening guidelines for cancer prevention and early detection, as well as answer any questions she may have. documented in this encounter Plan of Treatment Upcoming Encounters Date Type Department Care Team (Late st Contact Info) Description 02/11/2024 2:15 PM EDT Office Visit G[place] [phone] Julee Ibarra, [facility] [place] [address] 02/15/2024 10:45 AM EDT Office Visit [place] [address] Jian Carmichael MD [facility] [place] [place] [address] 03/12/2024 8:00 AM EDT Appointment Mammography/[place] [address] Ting George AGRICULTURE INTERN [facility] [place] [address] 03/12/2024 9:00 AM EDT Office Visit [place] [address] Ting George APRN [facility] [place] [address] documented as of this encounter Results * Research Venipuncture (01/07/2020 10:28 AM EDT) Research Venipuncture Drawn [facility] Blood specimen (specimen) 01/07/2020 10:28 AM EDT 01/07/2020 10:39 AM EDT Narrative Resulting Agency Comment Spec In Lab Ayad Barnes MD CHEMISTRY ORDERABLES [facility] [place] [address] documented in this encounter Visit Diagnoses Diagnosis Family history of breast cancer Family history of malignant neoplasm of breast FH: ovarian cancer Family history of malignant neoplasm of ovary FH: GI cancer Family history of malignant neoplasm of gastrointestinal tract documented in this encounter Care Teams Beck Operator Relationship Specialty Start Date End Date Nereida Sharif MD [address] [place] [address] [address] [place] [address] PCP - General 04/26/10 documented as of this encounter
--- OUTSIDE RECORDS SUMMARY | 2024-02-01 01:36 | XMS_ITS | Encounter Summary ---
[place] [address] Care Team Providers Care Property Management Accountant Name Role Phone Nereida Sharif MD Primary Care Provider [phone] Encounter Details Date Type Department Care Team (Late st Contact Info) Description 01/02/2020 Notes Only Hematology [place] [phone] Ayad Barnes MD [facility] [address] HEMATOLOGY/[place] [address] Social History Tobacco Use Types Packs/Day Years [...] as of this encounter Progress Notes * Ayad Barnes MD - 01/02/2020 10:19 AM EDT I have reviewed the patient's record and given personal and/or family history of cancer she should be seen by genetic counselor. This is scheduled for next week. documented in this encounter Plan of Treatment Upcoming Encounters Date Type Department Care Team (Late st Contact Info) Description 02/11/2024 2:15 PM EDT Office Visit Gastroenterology at [place] [address] Julee Ibarra [facility] [place] [address] 02/15/2024 10:45 AM EDT Office Visit General Surgery at [place] [address] Jian Carmichael MD [facility] [place] [address] 03/12/2024 8:00 AM EDT Appointment Mammography/[place] [address] Ting George, [facility] [place] [address] 03/12/2024 9:00 AM EDT Office Visit General Surgery at [place] [address] Ting George [facility] [place] [address] documented as of this encounter Visit Diagnoses Not on filedocumented in this encounter Care Teams Property Management Accountant Relationship Specialty Start Date End Date Nereida Sharif MD [address] [place] [address] PCP - General 04/26/10 documented as of this encounter
--- OUTSIDE RECORDS SUMMARY | 2024-02-01 01:36 | XMS_ITS | Encounter Summary ---
[place] [address] Care Team Providers Care Animal Trainer Supervisor Name Role Phone Nereida Sharif MD Primary Care Provider [phone] Encounter Details Date Type Department Care Team (Latest Contact Info) Description 08/22/2022 Travel Social History Tobacco Use Types Packs/Day [...] 2:15 PM EDT Office [place] [phone] Julee Ibarra APRN [facility] [place] [address] 02/15/2024 10:45 AM EDT Office [place] [address] Jian Carmichael MD [facility] [place] [address] 03/12/2024 8:00 AM EDT Appointment Mammography[place] [address] Ting George [facility] [place] [address] 03/12/2024 9:00 AM EDT Office [place] [address] Ting George [facility] [place] [address] documented as of this encounter Visit Diagnoses Not on filedocumented in this encounter Care Teams Animal Trainer Supervisor Relationship Specialty Start Date End Date Nereida Sharif MD [address] [place] [address] PCP - General 04/26/10 documented as of this encounter
--- OUTSIDE RECORDS SUMMARY | 2024-02-01 01:36 | XMS_ITS | Encounter Summary ---
[place] [address] Care Team Providers Care Oil Seal Assembler Name Role Phone Nereida Sharif MD Primary Care Provider [phone] Reason for Referral * Diagnostic Test (Routine) - Closed Specialty Diagnoses / Procedures Referred By Shellie davis Referred To Contact Radiology Diagnoses Atypical lobular hyperplasia of left breast Radial scar of left breast Dense breast tissue on mammogram At high risk for breast cancer Breast cancer screening, high risk patient Procedures MRI Breast wwo Contrast Bilat Ting George APRN [facility] [place] [address] [place] [address] Referral ID Status Reason Start Date Expiration Date V isits Requested Visits Authorized [id number] Closed Specialty Service Requested 02/26/2023 08/26/2024 1 1 Reason for Visit * Reason Comments Follow-up Encounter Details Date Type Department Care Team (Late st Contact Info) Description 02/26/2023 9:00 AM EDT Office Visit [place] [address] Ting George APRN [facility] [place] [address] Encounter for screening mammogram for breast cancer; Atypical lobular hyperplasia of left breast; Radial scar of left breast; Dense breast tissue on mammogram; At high risk for breast cancer; Breast cancer screening, high risk patient Social History Tobacco Use Types Packs/Day [...] of this encounter Progress Notes * Ting George, SUSAN - 02/26/2023 9:00 AM EDT Images from the original note were not included. Patient ID: Kassandra Sierra is a 57 y.o. female. She [...] difficulty breathing. Nonew bony pain or tenderness. Kassandra denies significant changes [...] a [facility] Chemoprevention with tamoxifen was discussed and declined. 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 They are active snowshoeing, walking, hiking, andriding their motorcycle. She has never smoked and does not drink alcohol. Physical Exam: General appearance: Alert, well-developed, well-nourished; in no acute distress. Skin: Warm and dry. Head: Normocephalic, atraumatic. Neck: Soft and supple without masses or supraclavicular adenopathy. Cardiovascular: Normal rate, regular [...] is euthymic and appropriate to the situation. Tyrer-Jazminzick Risk Assessment: Breast Cancer Risk (ODESSA) Scores 01/25/2021 Lifetime Risk of Patient 59.8% Average Lifetime Risk 10.8% 10-Year Risk of Patient 21.5% Average 10-Year Risk 2.9% Results: Imaging performed (bilateral mammogram) at [facility] today shows no evidence of malignancy, BI-RADS Category 2 with extremely dense breast tissue. The results were reviewed with her at today's appointment. Assessment: Clinical breast exam notable for fibroglandular breast tissue bilaterally without notable masses, skin changes, dimpling, or nipple discharge. Stable exam. Plan: 1. Encounter for screening mammogram for breast cancer 2. Atypical lobular hyperplasia of left breast 3. Radial scar of left breast 4. Dense breast tissue on mammogram 5. At high risk for breast cancer 6. Breast cancer screening, high risk patient - MRI Breast wwo Contrast Bilat; August 2023 Kassandra has extremely dense breast tissue. [...] screening with semi- annual clinical breast exams. Based on her risk status, she will continue to follow up with me in 6 months for ongoing breast cancer screening with an MRI. Kassandra will contact me if she develops any new breast changes or concerns prior to that appointment. She agrees to this plan. Breast cancer risk reduction: Continue annual bilateral [...] free apps for your cell phone from [employer] ([employer]) and [employer] ([employer]). All questions were answered to the patient's satisfaction and they state understanding and agreement with today's treatment plan. They are encouraged to follow up sooner if they develop any new or concerning symptoms. Ting George APRN Surgical Oncology P [phone] F [phone] [facility] documented in this encounter Plan of Treatment Upcoming Encounters Date Type Department Care Team (Late st Contact Info) Description 02/11/2024 2:15 PM EDT Office Visit [place] [address] Julee Ibarra APRN [facility] [place] [address] 02/15/2024 10:45 AM EDT Office [place] [address] Jian Carmichael MD [facility] [place] [address] 03/12/2024 8:00 AM EDT Appointment Mammography/[place] [address] Ting George MOLD YARN SUPERVISOR [facility] [place] [address] 03/12/2024 9:00 AM EDT Office [place] [address] Ting George [facility] [place] [address] documented as of this encounter Results * [...] who have questions please contact the health janitor caretaker that requested your imaging first. ? Narrative [...] contrast enhancement curve analysis was performed, using [employer] software. COMPARISON STUDIES: Compared and/or correlated with [...] in the chest wall or skin.. Ting Oanh George APRN [facility] MRI ORDER BELKYS documented in this encounter Visit Diagnoses Diagnosis Encounter for screening mammogram for breast cancer Atypical lobular hyperplasia of left breast Radial [...] patient documented in this encounter Care Teams Oil Seal Assembler Relationship Specialty Start Date End Date Nereida Sharif MD [address] [place] [address] PCP - General 04/26/10 documented as of this encounter
--- OUTSIDE RECORDS SUMMARY | 2024-02-01 01:36 | XMS_ITS | Encounter Summary ---
Author Organization [facility] [place] [address] Care Team Providers Care Circuit Board Repair Technician Name Role Phone Nereida Sharif MD Primary Care Provider [phone] Encounter Details Date Type Department Care Team (Late st Contact Info) Description 01/22/2019 Orders [place] [phone] Carleen Magdaleno MD [facility] [place] [address] Abnormal mammogram Social History Tobacco Use Types [...] 2:15 PM EDT Office [place] [phone] Julee Ibarra APRN [facility] [place] [address] 02/15/2024 10:45 AM EDT Office [place] [address] Jian Carmichael MD [facility] [place] [address] 03/12/2024 8:00 AM EDT Appointment Mammography/[place] [address] Ting George [facility] [place] [address] 03/12/2024 9:00 AM EDT Office [place] [address] Ting George [facility] SURGERY [place], [place] [phone] documented as of this encounter Results * Mammo Needle Localization Left (01/31/2019 11:31 AM EDT) Anatomical Region Laterality Modality Breast Left Mammography Impressions 01/31/2019 12:12 PM EDT Successful needle localization of left breast radial scar and atypical lobular hyperplasia. I have personally reviewed the image(s) and the residents interpretation and agree with the findings, Kailee Enrique at 01/31/2019 12:12 PM Thank you for letting us participate in the care of this patient. For questions regarding this report, please contact the number below. ? Electronically signed by: Kailee Enrique [facility] ([phone]), at 01/31/2019 12:12 PM Narrative 01/31/2019 12:12 PM EDT NEEDLE LOCALIZATION OF ??LEFT CLINICAL HISTORY: Please needle localize left breast for cancer lesion Technique:Informed consent was confirmed and a timeout procedure was performed per protocol. Using sterile technique and local anesthetic ??(less than 5 cc's of 1% lidocaine) a needle localization of the radial scar and incidental atypical lobular hyperplasia in the left breast was performed from the cranial approach with mammographic guidance. The wire was deployed. After confirming satisfactory positioning in orthogonal views the wire was deployed and a final image was obtained. There were no complications. Images were annotated on PACS for the operating surgeon. Procedural attestation: Resident: Clem Reinoso I was present with the resident for the reed component(s) of the procedure and otherwise remained immediately available for the duration of the procedure. I attest to having personally viewed the images/test and approve the above interpretation. Carleen Magdaleno MD IMG MAMMO ORDERABLE S documented in this encounter Visit Diagnoses Diagnosis Abnormal mammogram Abnormal mammogram, unspecified Abnormal mammogram Abnormal mammogram, unspecified documented in this encounter Care Teams Circuit Board Repair Technician Relationship Specialty Start Date End Date Nereida Sharif MD [address] [place] [address] PCP - General 04/26/10 documented as of this encounter
--- OUTSIDE RECORDS SUMMARY | 2024-02-01 01:36 | XMS_ITS | Encounter Summary ---
Author Organization [facility] [place] [address] Care Team Providers Care Bill Poster Installer Name Role Phone Nereida Sharif MD Primary Care Provider [phone] Reason for Visit * Reason Onset Date Comments Results 01/20/2020 Encounter Details Date Type Department Care Team (Late st Contact Info) Description 01/20/2020 Telephone H[place]ology [place] [address] Viry Villatoro, [facility] DR HEMATOLOGY/[place] [address] Results Social History Tobacco Use Types Packs/Day [...] Notes * Telephone Encounter - Viry Villatoro [facility] - 01/20/2020 1:49 PM EDT This test result was discussed with the patient by phone. A copy of the test results have been scanned in the medical record and sent to Kassandra. A summary of the results is provided below. Please beadvised that [place] law requires that all health care workers respect the confidentiality ofthis information and not pass it along to other health care providers, insurance companies, or individuals without the written permission of the patient. The Familial Cancer Program welcomes any questions about these matters. Our phone number is: [phone]. On 01/07/2020, Kassandra underwent genetic testing for a hereditary predisposition to cancers in eight major organ systems including breast, gynecologic, gastrointestinal, endocrine, genitourinary, skin,brain/nervous system, sarcoma and hematologic. Following are the results of this test. Result: [facility]'s Multi-Cancer Panel showed no mutation was detected. This means that Kassandra does not carry a mutation in the genes detectable by this test. The following 84 genes were evaluated for sequence changes and exonic deletions/duplications: AIP, ALK, APC, LOU, AXIN2, BAP1, BARD1, BLM, BMPR1A, BRC A1, BRCA2, BRIP1, CASR, CDC73, CDH1, CDK4, CDKN1B, CDKN1C, CDKN2A, (p14ARF), CDKN2A (y06GTS5E), CEBPA, CHEK2, CTNNA1, DICER1, DIS3L2, EGFR, EPCAM (Deletion/duplication testing only), FH, FLCN, GATA2,GPC3, GREM1 (Promoter region deletion/duplication testing only), HOXB13, HRAS, KIT, MAX, MEN1, MET, MITF, (c.952G>A,P.Vcv542Gcf variant only), MLH1, MSH2, MSH3, MSH6, MUTYH, NBN, NF1, NF2, NTHL1, PALB2, PDGFRA, PHOX2B, PMS2, POLD1, POLE, POT1, FWSQV4O, PTCH1, PTEN, RAD50, RAD51C, RAD51D, RB1, RECQL4, RET, RUNX1, SDHA, SDHAF2, SDHB, SDHC, SDHD, SMAD4, SMARCA4, SMARCB1, SMARCE1, STK11, SUFU, TERC, TERT, FLLP059, TP53, TSC1, TSC2, VHL, WRN, and WT1. A variant of uncertain significance (VUS) in the POLE gene, specifically c.5974T>G (p.Occ1447Utw) was detected. Interpretation: This test did not identify an underlying genetic cause for the family history of cancer. Possible explanations for this uninformative negative test result include: ?? The cancer in Kassandra's family may be due to non genetic, environmental causes. ?? There could be a mutation in Kassandra's family that Kassandra did not inherit. ?? There could be mutations in other cancer genes not included in this test, or in genes yet to be discovered. ?? There is a very small chance that a pathogenic variant/mutation could be missed due to limitations in the testing. Additional genetic testing for Kassandra is not recommended at this time. It is unclear at this time whether the POLE VUS identified in Kassandra is a cancer-associated mutation or a benign change in the gene with no increased cancer risks. [employer] is continually collecting and analyzing their data, in an effort to reclassify these variants as either cancer-causing mutations or benign changes. It is important to remember that a vast majority of variants of uncertain significance are normal, benign changes in the gene. We will be contacted by the laboratory, in the future, if a reclassification is made and we would then notify Kassandra. It is important that Kassandra's phone number and mailing address stay updated in the [facility] system, in order for us to reach her in the future, should an amended reportbe issued. Family members should NOT be tested for the POLE variant of uncertain significance identified in Kassandra in order to find out their own cancer risks. Screening Recommendations Based on genetic test results and personal and/or family history, we recommend: Breast cancer screening ?? Kassandra has been having twice yearly clinical exams and annual mammograms due to her history of ALH. ??? In addition, based on her lifetime breast cancer risk estimate of approximately 32% per Tyrer-Cuzick model and extremely dense breast tissue on mammography, Kassandra may consider annual breast MRIscreening. Ideally, this should be performed at a facility that has breast MRI directed [facility]. Kassandra should be aware of a high false positive rate associated with breast MRI screening, limited data supporting this modality for screening women at her level of risk, as well as possible lack of insurance coverage. MRI is already being planned. ?? Kassandra???s 10-year risk of developing breast cancer is approximately 11%. Tamoxifen or Raloxifene has been shown to reduce the risk of breast cancer in women at increased risk. Tamoxifen, if usedfor approximately 5 years, reduces ones risk by about half (50%). This option could be further discussed with Kassandra???s health care provider. Ovarian cancer screening ?? We do not recommend any special screening studies in addition to an annual ONLINE MERCHANT exam at this time. Colon cancer screening ?? Periodic colonoscopy screening as recommended by Kassandra's parachute inspector. Skin cancer screening ?? Dermatologic/skin exams, as recommended by Kassandra's primary resident care spec or math coach. documented in this encounter Plan of Treatment Upcoming Encounters Date Type Department Care Team (Late st Contact Info) Description 02/11/2024 2:15 PM EDT Office Visit Gastroenterology at [place] [phone] Julee Ibarra [facility] [place] [address] 02/15/2024 10:45 AM EDT Office [place] [address] Jian Carmichael MD [facility] [place] [address] 03/12/2024 8:00 AM EDT Appointment Mammography/DXA at [place] [phone] Ting George [facility] [address] 03/12/2024 9:00 AM EDT Office Visit General Surgery at [place] [phone] Ting George [facility] [address] documented as of this encounter Visit Diagnoses Not on filedocumented in this encounter Care Teams Bill Poster Installer Relationship Specialty Start Date End Date Nereida Sharif MD [address] [place], [place] [address]Y [facility] [address] [place] [address] PCP - General 04/26/10 documented as of this encounter
--- OUTSIDE RECORDS SUMMARY | 2024-02-01 01:36 | XMS_ITS | Encounter Summary ---
[place] [address] Care Team Providers Care Branch Banker Name Role Phone Nereida Sharif MD Primary Care Provider [phone] Encounter Details Date Type Department Care Team (Latest Contact Info) Description 01/07/2020 8:02 AM EDT - 01/07/2020 10:12 AM EDT Hospital Encounter Mammography/[place] [address] Ting George APRN [facility] [place] [address] Abnormal mammogram Discharge Disposition: Home Social History [...] 2:15 PM EDT Office Visit Gastroenterology at [place] [address] Julee Ibarra [facility] [place] [address] 02/15/2024 10:45 AM EDT Office Visit General Surgery at [place] [phone] Jian Carmichael MD [facility] [place] [address] 03/12/2024 8:00 AM EDT Appointment Mammography/DXA at [place] [phone] Ting George [facility] [place] [address] 03/12/2024 9:00 AM EDT Office Visit General Surgery at [place] [phone] Ting George [facility] [place] [address] documented as of this encounter Procedures Procedure Name Priority Date/Time Associated Diagnosis Comments MAMMO SCREENING CAD AND TORITO BILATERAL Routine 01/07/2020 8:31 AM EDT Abnormal mammogram documented in this encounter [...] unspecified documented in this encounter Care Teams Branch Banker Relationship Specialty Start Date End Date Nereida Sharif MD [address] [place] [address] PCP - General 04/26/10 documented as of this encounter
--- OUTSIDE RECORDS SUMMARY | 2024-02-01 01:36 | XMS_ITS | Encounter Summary ---
[place] [address] Care Team Providers Care Casing Fluid Tender Name Role Phone Nereida Sharif MD Primary Care Provider [phone] Encounter Details Date Type Department Care Team (Latest Contact Info) Description 02/19/2023 Travel Social History Tobacco Use Types Packs/Day [...] 2:15 PM EDT Office [place] [phone] Julee Ibarra APRN [facility] [place] [address] 02/15/2024 10:45 AM EDT Office [place] [phone] Jian Carmichael MD [facility] [place] [address] 03/12/2024 8:00 AM EDT Appointment Mammography[place] [address] Ting George [facility] [place] [address] 03/12/2024 9:00 AM EDT Office [place] [address] Ting George [facility] [place] [address] documented as of this encounter Visit Diagnoses Not on filedocumented in this encounter Care Teams Casing Fluid Tender Relationship Specialty Start Date End Date Nereida Sharif MD [address] [place] [address] PCP - General 04/26/10 documented as of this encounter
--- OUTSIDE RECORDS SUMMARY | 2024-02-01 01:36 | XMS_ITS | Encounter Summary ---
Author Organization [facility] [place] [address] Care Team Providers Care Child And Family Therapist Name Role Phone Nereida Sharif MD Primary Care Provider [phone] Reason for Visit * Auth/Cert Specialty Diagnoses / Procedures Referred By Contac t Referred To Contact Diagnoses [facility] Procedures PRO EXCISE BREAST LES W XRAY MARKER EXCISION LESION, BREAST W/ PREOP.MARKER (NEEDLE LOC.) (WRVU 6.69) MODIFIER WITH NEEDLE LOC., LESION #1 Referral ID Status Reason Start Date Expiration Date Visits Re quested Visits Authorized [id number] 1 1 Encounter Details Date Type Department Care Team (Latest Contact Info) Description 01/31/2019 10:13 AM EDT - 01/31/2019 10:15 AM EDT Hospital Encounter [place] [address] Carleen Magdaleno MD [facility] [place] [address] Abnormal mammogram Discharge Disposition: Home Social History [...] 2:15 PM EDT Office Visit [place] [address] Julee Ibarra APRN [facility] [place] [address] 02/15/2024 10:45 AM EDT Office Visit General Surgery at [place] [phone] Jian Carmichael MD [facility] [place] [address] 03/12/2024 8:00 AM EDT Appointment Mammography/[place] [phone] Ting George, [facility] [place] [address] 03/12/2024 9:00 AM EDT Office Visit [place] [address] Ting George, [facility] [place] [address] documented as of this encounter Procedures Procedure Name Priority Date/Time Associated Diagnosis Comments MAMMO NEEDLE LOCALIZATION LEFT Routine 01/31/2019 11:31 AM EDT Abnormal mammogram documented in this encounter Results * Mammo Needle Localization Left (01/31/2019 11:31 AM EDT) Anatomical Region Laterality Modality Breast Left Mammography Impressions 01/31/2019 12:12 PM EDT Successful needle localization of left breast radial scar and atypical lobular hyperplasia. I have personally reviewed the image(s) and the residents interpretation and agree with the findings, Kailee Klaus at 01/31/2019 12:12 PM Thank you for letting us participate in the care of this patient. For questions regarding this report, please contact the number below. ? Narrative 01/31/2019 12:12 PM EDT NEEDLE LOCALIZATION [...] Abnormal mammogram, unspecified documented in this encounter Administered Medications Inactive Administered Medications - up to 3 most recent administrations Medication Order MAR Action Action Date Dose Rate Site lidocaine (XYLOCAINE) 10 mg/mL (1 %) injection 10 mg 10 mg, Intradermal, ONCE, 1 dose, On Sun01/31/19 at 1130, Routine Given 01/31/2019 11:17 AM EDT 10 mg documented in this encounter Care Teams Child And Family Therapist Relationship Specialty Start Date End Date Nereida Sharif MD [address] [facility] [address] [place] [address] PCP - General 04/26/10 documented as of this encounter
--- OUTSIDE RECORDS SUMMARY | 2024-02-01 01:36 | XMS_ITS | Encounter Summary ---
[place] [address] Care Team Providers Care Tooth Polisher Name Role Phone Nereida Sharif MD Primary Care Provider [phone] Reason for Referral * Diagnostic Test (Routine) - Closed Specialty Diagnoses / Procedures Referred By Shellie davis Referred To Contact Radiology Diagnoses Atypical lobular hyperplasia of left breast Dense breast tissue on mammogram Breast cancer screening, high risk patient Procedures MRI Breast wwo Contrast [facility] [address] [place] [phone] [place] [address] Referral ID Status Reason Start Date Expiration Date V isits Requested Visits Authorized [id number] Closed Specialty Service Requested 06/25/2020 12/23/2021 1 1 Reason for Visit * Diagnostic Test (Routine) - Closed Specialty Diagnoses / Procedures Referred By Shellie davis Referred To Contact Radiology Diagnoses Atypical lobular hyperplasia of left breast Dense breast tissue on mammogram Breast cancer screening, high risk patient Procedures MRI Breast wwo Contrast [facility] [address] [place] [phone] [place] [address] Referral ID Status Reason Start Date Expiration Date V isits Requested Visits Authorized [id number] Closed Specialty Service Requested 06/25/2020 12/23/2021 1 1 Encounter Details Date Type Department Care Team (Latest Contact Info) Description 07/19/2020 7:02 AM EST - 07/19/2020 11:59 PM EST Hospital Encounter MRI at [place] [phone] Ting George [employer] [facility] [place] [address] Atypical lobular hyperplasia of left breast; Dense [...] 2:15 PM EDT Office Visit Gastroenterology at [place] [phone] Julee Ibarra [employer] [facility] [place] [address] 02/15/2024 10:45 AM EDT Office [place] [address] Jian Carmichael MD [facility] [place] [address] 03/12/2024 8:00 AM EDT Appointment Mammography/[place] [address] Ting George, [facility] [place] [address] 03/12/2024 9:00 AM EDT Office [place] [phone] Ting George, [employer] [facility] [place] [address] documented as of this encounter Procedures Procedure Name Priority Date/Time Associated Diagnosis Comments MRI BREAST WWO CONTRAST BILAT Routine 07/19/2020 8:30 AM EST Atypical lobular hyperplasia of left breast Dense breast tissue on mammogram Breast cancer screening, high risk patient (Not by Mammogram) documented in this encounter Results * (ABNORMAL) MRI Breast [...] the number below. ? Electronically signed by: Main Sheehan MD, [facility] ([phone]), at 07/20/2020 8:50 AM Narrative 07/20/2020 8:50 AM EST BILATERAL BREAST [...] contrast enhancement curve analysis was performed, using [employer] software. COMPARISON STUDIES: Compared and/or correlated with [...] substrate. Resulting Agency Comment Unexpected Finding Ting Hugo Doris [employer] [facility] MRI ORDER BELKYS documented in this [...] gadoterate meglumine (Dotarem) (0.5 mMol/mL) injection solution 0.2 mL/kg/dose 0.2 mL/kg/dose, Intravenous, ONCE PRN, 1 dose, Starting on Sun07/19/20 at 0812, Until Sun07/19/20 at 0812, Per Protocol, Radiology Contrast, Routine Given 07/19/2020 8:12 AM EST 16 mLs documented in this encounter Care Teams Tooth Polisher Relationship Specialty Start Date End Date Nereida Sharif MD [address] [place] [address] PCP - General 04/26/10 documented as of this encounter
--- OUTSIDE RECORDS SUMMARY | 2024-02-01 01:36 | XMS_ITS | Encounter Summary ---
[place] [address] Care Team Providers Care Drapery Seamstress Name Role Phone Nereida Sharif MD Primary Care Provider [phone] Encounter Details Date Type Department Care Team (Latest Contact Info) Description 08/21/2023 Travel Social History Tobacco Use Types Packs/Day [...] 2:15 PM EDT Office [place] [phone] Julee Ibarra APRN [facility] [place] [address] 02/15/2024 10:45 AM EDT Office [place] [phone] Jian Carmichael MD [facility] [place] [address] 03/12/2024 8:00 AM EDT Appointment Mammography/[place] [address] Ting George [facility] [place] [address] 03/12/2024 9:00 AM EDT Office [place] [phone] Ting George [facility] [place] [address] documented as of this encounter Visit Diagnoses Not on filedocumented in this encounter Care Teams Drapery Seamstress Relationship Specialty Start Date End Date Nereida Sharif MD [address] [place] [address] PCP - General 04/26/10 documented as of this encounter
--- OUTSIDE RECORDS SUMMARY | 2024-02-01 01:36 | XMS_ITS | Encounter Summary ---
[place] [address] Care Team Providers Care Director Weights And Measures Name Role Phone Nereida Sharif MD Primary Care Provider [phone] Encounter Details Date Type Department Care Team (Latest Contact Info) Description 02/26/2023 7:21 AM EDT - 02/26/2023 11:59 PM EDT Hospital Encounter Mammography/[place] [address] Ting George APRN [facility] [place] [address] Atypical lobular hyperplasia of left breast; Radial scar of left breast; Dense breast tissue on mammogram; At high risk for breast cancer; Screening mammogram for high-risk patient Discharge Disposition: [...] 2:15 PM EDT Office Visit Gastroenterology at [place] [address] Julee Ibarra [facility] [place] [address] 02/15/2024 10:45 AM EDT Office Visit [place] [address] Jian Carmichael MD [facility] [place] [address] 03/12/2024 8:00 AM EDT Appointment Mammography/DXA at [place] [phone] Ting George [facility] [place] [address] 03/12/2024 9:00 AM EDT Office Visit General Surgery at [place] [address] Ting George [facility] [place] [address] documented as of this encounter Procedures Procedure [...] who have questions please contact the health pet care assistant that requested your imaging first. ? Electronically signed by: Mandy Quintanilla MD, [facility] ([phone]), at 02/26/2023 8:44 AM Narrative 02/26/2023 8:44 [...] documented in this encounter Care Teams Director Weights And Measures Relationship Specialty Start Date End Date Nereida Sharif MD [address] [place] [address] PCP - General 04/26/10 documented as of this encounter
--- OUTSIDE RECORDS SUMMARY | 2024-02-01 01:36 | XMS_ITS | Encounter Summary ---
Author Organization [facility] [place] [address] Care Team Providers Care Blueprinting Machine Operator Name Role Phone Nereida Sharif MD Primary Care Provider [phone] Reason for Visit * Auth/Cert Specialty Diagnoses / Procedures Referred By Contac t Referred To Contact Diagnoses [facility] Procedures PRO EXCISE BREAST LES W XRAY MARKER EXCISION LESION, BREAST W/ PREOP.MARKER (NEEDLE LOC.) (WRVU 6.69) MODIFIER WITH NEEDLE LOC., LESION #1 Referral ID Status Reason Start Date Expiration Date Visits Re quested Visits Authorized [id number] 1 1 Encounter Details Date Type Department Care Team (Late st Contact Info) Description 01/31/2019 3:03 PM EDT - 01/31/2019 4:18 PM EDT Surgery [place] [address] Shala Magdaleno MD [facility] [place] [address] EXCISION LESION, BREAST W/ PREOP.MARKER (NEEDLE LOC.) (WRVU 6.69) Social History Tobacco Use Types Packs/Day Years [...] shower 24 hours Activity as tolerated Call [phone] with any questions Do not soak incision for 2 weeks Will call with pathology results in 5-7 days Ice pack to breast as needed Okay to use tylenol and/or ibuprofen as needed for pain (Recommend taking 650 mg of tylenol and 400 mg ibuprofen every 6 hours as needed) Wear bra for comfort (you may want to wear / until swelling improves) General Anesthesia Discharge Instructions [...] closest emergency room or call the hospital log stacker operator at [phone] and ask for physician communication coordinator covering for your physician. Questions or problems after 5pm or on a weekend: Call the [facility] log stacker operator at and ask for the physician communication coordinator covering for your doctor. At 1200 noon [...] on file) Attending Physician: Shala Magdaleno MD RENA Cannon is seen in surgical consultation [...] Diagnosis Date ??? Amblyopia ? OS ??? 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 Neuromuscular disorder [...] Magdaleno MD - 01/31/2019 3:30 PM EDT [facility] Operative Note [id number] MR#: [id number] Case Date: 01/31/2019 Surgeon: Surgeon(s) and Role: [...] 2:15 PM EDT Office [place] [address] Julee Ibarra APRN [facility] [place] [address] 02/15/2024 10:45 AM EDT Office [place] [address] Jian Carmichael MD [facility] [place] [address] 03/12/2024 8:00 AM EDT Appointment Mammography/[place] [phone] Ting George APRN [facility] [place] [address] 03/12/2024 9:00 AM EDT Office [place] [phone] Ting George APRN [facility] [place] [address] documented as of this encounter Procedures Procedure Name Priority Date/Time Associated Diagnosis Comments SPECIMEN TO PATHOLOGY Routine 01/31/2019 3:04 PM EDT SURGICAL PATHOLOGY REPORT Routine 01/31/2019 3:03 PM EDT MODIFIER WITH NEEDLE LOC., LESION #1 01/31/2019 2:09 PM EDT [facility] Excise Breast Les W Xray Marker ([id number]) 01/31/2019 2:09 PM EDT [facility] documented in this encounter Results * Specimen to Pathology (01/31/2019 3:04 PM EDT) AP Specimen 01/31/2019 3:04 PM EDT 01/31/2019 3:[address] [facility] - 01/31/2019 3:30 PM EDT Specimen requisition ordered. ??Separate Pathology report to follow Resulting Agency Comment Spec In Lab Shala Magdaleno MD PATHOLOGY/CYTOLOGY ORDERABLES [facility] [place] [address] * Surgical Pathology Report (01/31/2019 3:03 PM EDT) Final Diagnosis [id number] ? Location: [facility] The signing pathologist has (i) examined the relevant preparation(s) for the specimen(s) and (ii) rendered or confirmed the diagnosis(es). . ?Surgical Pathology DIAGNOSIS A - Left breast, excision - - Residual complex sclerosing lesion with usual ductal hyperplasia, cysts, adenosis, and apocrine metaplasia, in background of biopsy related changes. Electronically signed by: ??Alana Elias DO Verified: ??02/06/2019 ?Pathologist Performed at: ??-[facility] Dept. of Pathology, [place], [place] CLINICAL INFORMATION Specimen Submitted: A - Left breast excisional biopsy Clinical History and Diagnosis: Left radial scar SPECIMEN PROCESSING A - Labeled/Fixative: Left breast excisional biopsy, fresh. Quantity/Size/Pj ght: ??Single, 4.7 x 2.8 x 1.3 cm, 5 g. SPECIMEN DESCRIPTION Resection Specimen: Intact, excisional biopsy with a needle localization wire in place. Specimen radiograph: per [facility] radiology Marker clip and intact needle localization [...] 1.2 hours ??sns 02/06/2019 2:[address] [facility] BREAST STRUCTURE / Unknown 01/31/2019 3:03 PM EDT 01/31/2019 3:03 PM EDT Shala Magdaleno MD PATHOLOGY/CYTOLOGY ORDERABLES [facility] [place] [address] documented in this encounter Visit Diagnoses Not [...] Given 01/31/2019 12:45 PM EDT 325 mg BUpivacaine (PF) (MARCAINE) 0.5 % (5 mg/mL) injection ONCE PRN, Starting on Sun01/31/19 at 1430, Until Sun01/31/19 at 1827, Intra-Operative (Intra-Procedure), Routine Given 01/31/2019 3:11 PM EDT 5 mLs 19- Surgical Site Given 01/31/2019 2:52 PM EDT 1 mL 19 - Surgical Site Given 01/31/2019 2:30 PM EDT 5 mLs 19 - Surgical Site lactated ringers infusion 1,000 mL, at 100 mL/hr, Intravenous, CONTINUOUS, Starting on Sun01/31/19 at 1215, Until Sun01/31/19 at 1624, Day of Surgery (Day of Procedure) New Bag 01/31/2019 12:15 PM EDT 1,000 mLs 100 mL/hr lidocaine (PF) (XYLOCAINE) 10 mg/mL (1 %) injection ONCE PRN, Starting on Sun01/31/19 at 1430, Until Sun01/31/19 at 1827, Intra-Operative (Intra-Procedure), Routine Given 01/31/2019 3:12 PM EDT 5 mLs 19- Surgical Site Given 01/31/2019 2:53 PM EDT 1 mL 19 - Surgical Site Given 01/31/2019 2:30 PM EDT 5 mLs 19 - Surgical Site traMADol (ULTRAM) tablet 50 mg 50 mg, [...] Routine documented in this encounter Care Teams Blueprinting Machine Operator Relationship Specialty Start Date End Date Nereida Sharif MD [address] [place] [address] PCP - General 04/26/10 documented as of this encounter
--- OUTSIDE RECORDS SUMMARY | 2024-02-01 01:36 | XMS_ITS | Encounter Summary ---
[place] [address] Care Team Providers Care Clean Out Driller Name Role Phone Nereida Sharif MD Primary Care Provider Encounter Details Date Type Department Care Team (Late st Contact Info) Description 01/07/2020 11:20 AM EDT Office [place] [address] Ting George FUR TINTER [facility] [place] [address] Encounter for screening mammogram for high-risk patient; Atypical lobular hyperplasia of left breast; Dense [...] Progress Notes * Ting George APRN - 01/07/2020 11:20 AM EDT Images from the original note were not included. Patient ID: Kassandra Sierra is a 54 y.o. female who is accompanied by her HPI: Kassandra is a patient of Dr. Magdaleno with a history of radial scar and ALH in the left breast who returns for high risk screening. She is status post excisional biopsy [...] [facility]. She opted for testing with [employer]'s Multi-Cancer Panel. 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 She does not smoke or drink alcohol. Physical Exam: General appearance: Alert, well-developed, well-nourished female in no acute distress. Skin: Warm and dry. Head: Normocephalic, atraumatic. Neck: Soft and supple without adenopathy. Cardiovascular: Normal rate, regular rhythm and normal heart sounds. No murmur heard. Pulmonary: Effort normal and breath sounds normal. No respiratory distress, cough, or wheezing. Breasts: Right breast appears normal. Well-healed periareolar incision on the left. No suspicious masses, tenderness, dimpling, erythema, or [...] to the situation. Results: Imaging performed (bilateral mammogram) at [facility] today shows no evidence of malignancy, BIRADS Category 1 with extremely dense breasts. The results were reviewed with her at today's appointment. Assessment: Clinical breast exam notable for fibroglandular breast tissue bilaterally without notable masses, skin changes, dimpling, or nipple discharge. Stable exam. Plan: 1. Encounter for screening mammogram for high-risk patient 2. Atypical lobular hyperplasia of left breast 3. Dense breast tissue on mammogram 4. Breast cancer screening, high risk patient (Not by Mammogram) - MRI Breast po Nagel; Jul 2020 She also has extremely dense breasts. I think that continuing breast cancer screening with 3-D mammography is appropriate. I discussed the pros and cons of breast MR screening. A small percentage of women, because of their family history, a genetic tendency, or other risk factors, benefit from breast MRI as well as mammography for screening. While the sensitivity of MR screening is greater than the sensitivity of mammography, this also increases the risk of false positive imaging leading to negative biopsies. She is interested in pursuing this. I will see her back in 6 months with an MRI and a clinical breast exam. She will also contact me ifguanakito develops any new breast changes or concerns prior to that time. She agrees to this plan. Routine recommendations discussed with the patient including importance of regular moderate intensity exercise, nutrition, decreasing cardiovascular risk, and optimizing weight. All questions were answered to the patient's satisfaction and they state understanding and agreement with today's treatment plan. They are encouraged to follow up sooner if they develop any new or concerning symptoms. Ting George APRN Surgical Oncology P [phone] F [phone] [facility] documented in this encounter Miscellaneous Notes * Addendum Note - Brie Mccloud RN - 01/07/2020 11:20 AM EDTAddended by: BRIE MCCLOUD on: 06/24/2020 02:36 PM Modules accepted: Orders documented in this encounter Plan of Treatment Upcoming Encounters Date Type Department Care Team (Late st Contact Info) Description 02/11/2024 2:15 PM EDT Office Visit Gastroenterology at [address] Julee Ibarra FUR TINTER [facility] [place] [address] 02/15/2024 10:45 AM EDT Office Visit General Surgery at [place] [phone] Jian Carmichael MD [facility] [place] [place] [address] 03/12/2024 8:00 AM EDT Appointment Mammography/DXA at [place] [phone] Ting George APRN [facility] [place] [address] 03/12/2024 9:00 AM EDT Office [place] [address] Ting George APRN [facility] [place] [place] [address] documented as of this encounter Visit Diagnoses Diagnosis Encounter for screening mammogram for high-risk patient Atypical lobular hyperplasia of left breast Dense breast tissue on mammogram Breast cancer screening, high risk patient Screening mammogram for high-risk patient documented in this encounter Care Teams Clean Out Driller Relationship Specialty Start Date End Date Nereida Sharif MD [address] [place] [address] PCP - General 04/26/10 documented as of this encounter
--- OUTSIDE RECORDS SUMMARY | 2024-02-01 01:37 | XMS_ITS | Encounter Summary ---
Author Organization [facility] [address] Care Team Providers Care Mine Engineering Superintendent Name Role Phone Nereida Sharif MD Primary Care Provider [phone] Encounter Details Date Type Department Care Team (Late st Contact Info) Description 04/25/2013 [place] [phone] Christiano Meyer MD [facility] [place] [address] Social History Tobacco Use Types Packs/Day Years Used Date Smoking Tobacco: Never Assessed Sex and Gender Information Value Date Recorded Sex Assigned at Female 07/15/2020 10:54 AM EST Gender Identity Female 12/04/2018 5:53 PM EDT Sexual Orientation Straight 07/15/2020 10 :54 AM EST documented as of this encounter Plan of Treatment Upcoming Encounters Date Type Department Care Team (Late st Contact Info) Description 02/11/2024 2:15 PM EDT Office [place] [phone] Julee Ibarra APRN [facility] [place] [address] 02/15/2024 10:45 AM EDT Office [place] [phone] Jian Carmichael MD [facility] [place] [address] 03/12/2024 8:00 AM EDT Appointment Mammography/DXA at [place] [phone] Ting George APRN [facility] [place] [address] 03/12/2024 9:00 AM EDT Office Visit General Surgery at [place] [phone] Ting George [facility] [place] [address] documented as of this encounter Visit Diagnoses Not on filedocumented in this encounter Care Teams Mine Engineering Superintendent Relationship Specialty Start Date End Date Nereida Sharif MD [address] [place] [address] PCP - General 04/26/10 documented as of this encounter
--- OUTSIDE RECORDS SUMMARY | 2024-02-01 01:37 | XMS_ITS | Encounter Summary ---
[facility] Organization [facility] [place] [address] Care Team Providers Care Molder Wax Ball Name Role Phone Nereida Sharif MD Primary Care Provider [phone] Encounter Details Date Type Department Care Team (Late st Contact Info) Description 03/06/2013 Orders Only [place] [phone] Eufemia Penaloza [facility] [place] [address] Social History Tobacco Use Types Packs/Day Years [...] 2:15 PM EDT Office Visit [place] [phone] Julee Ibarra [facility] [place] [address] 02/15/2024 10:45 AM EDT Office Visit [place] [address] Jian Carmichael MD [facility] [place] [address] 03/12/2024 8:00 AM EDT Appointment Mammography/[place] [address] Ting George APRN [facility] GENERAL SURGERY [place], [place] [id number] 03/12/2024 9:00 AM EDT Office Visit [place] [address] Ting George [facility] [place] [address] documented as of this encounter Procedures Procedure Name Priority Date/Time Associated Diagnosis Comments QUANTIFERON-TB GOLD Routine 03/06/2013 2 :01 PM EDT documented in this encounter Results * QuantiFERON-TB Gold (03/06/2013 2:01 PM EDT) Quantiferon-TB Gold Negative Negative [facility] Comment: Nil (IU/mL)= 0.02 TB Ag minus Nil (IU/mL)= 0.01 Mitogen minus Nil (IU/mL)= >10 M. tuberculosis (TB) infection NOT likely ?A negative specimen should have a TB Ag minus Nil value less than 0.35 IU/mL OR a TB Ag minus Nil greater than or equal to 0.35 IU/mL and in addition the TB Ag minus Nil value must be less than 25% of the Nil value. A negative specimen should have a Mitogen minus Nil value greater than or equal to 0.5 IU/mL. ?A negative QuantiFERON-TB Gold IT result does not preclude the possibility of M. tuberculosis infection or tuberculosis disease: false negative results can be due to stage of infection (e.g., specimen obtained prior to the development of cellular immune response), co-morbid conditions which affect immune function, or other individual immunological factors. ?The performance of the QuantiFERON-TB Gold IT test has not been extensively evaluated with specimens from the following groups of individuals: ?1. Individuals who have impaired or altered immune function such as those who have HIV infection or AIDS, those who have transplantation managed with immunosuppressive treatment or others who receive immunosuppressive drugs (e.g., corticosteroids, methotrexate, azathioprine, cancer chemotherapy), and those who have other clinical conditions: diabetes, silicosis, chronic renal failure, hematological disorders (e.g., leukemia and lymphomas), and other specific malignancies (e.g., carcinoma of the head or neck and lung). ?2. Individuals younger than age 17 years. ?3. women. Note: Diagnosing or excluding tuberculosis disease, and assessing the probability of LTBI, require a combination of epidemiological, historical, medical, and diagnostic findings that should be taken into account when interpreting QuantiFERON-TB Gold results. Reference (http://www.cdc.gov/nchstp/tb/) Blood specimen (specimen) 03/06/2013 2:01 PM EDT 03/07/2013 8:06 AM EDT Narrative Resulting Agency Comment Spec In Lab Eufemia Penaloza SUPERVISOR CAB CHEMISTRY ORDERABLES Performing Organization Address City/State/[facility] Co fl Phone Number [facility] documented in this encounter Visit Diagnoses Not on filedocumented in this encounter Care Teams Molder Wax Ball Relationship Specialty Start Date End Date Nereida Sharif MD [address] [place] [address] [address] PCP - General 04/26/10 documented as of this encounter
--- OUTSIDE RECORDS SUMMARY | 2024-02-01 01:37 | XMS_ITS | Encounter Summary ---
Author Organization [facility] Address [address] [place] [address] Care Team Providers Care Residential Solar Consultant Name Role Phone Unavailable Primary Care Provider Unavailabl e Encounter Details Date Type Department Care Team (Late st Contact Info) Description 10/24/2011 Results Only [facility] Laboratory Services - [facility] ([facility]) [address] [place] [address] Nereida Chambers MD [address] [place] [address] [address] [place] [address] Social History Tobacco Use Types Packs/Day Years Used Date Smoking Tobacco: Never Assessed Sex and Gender Information Value Date Recorded Sex Assigned at Not on file Gender Identity Not on file Sexual Orientation Not on file documented as of this encounter Plan of Treatment Not on file documented as of this encounter Procedures Procedure Name Priority Date/Time Associated Diagnosis Comments PAP TEST- RESULT ONLY Routine 10/24/2011 0:00 EDT documented in this encounter Results * PAP TEST- RESULT ONLY (10/24/2011 0:00 EDT) Pathology Report: CYTOPATHOLOGY REPORT Reports generated via electronic interface contain original data; however they are lacking the format of the original report. Caution should be taken when reading/interpreti ng unformatted reports. Name: ? DEV TINAJERO ? Accession #: ? [id number] ? : ? 1965 (Age: 46) ??F ?Collect Date: ? 10/24/2011 ? Location: ? [facility] ? Receive Date: ? 10/25/2011 ? Provider: NEREIDA CHAMBERS MD Copy to: ? Final Report SPECIMEN ADEQUACY ? Satisfactory for Evaluation - transformation zone component present GENERAL CATEGORIZATION ? Negative for Intraepithelial Lesion or Malignancy ?? Last Menstural Period: 10/22/2011 Specimen/Source: ??Pap Test, Cervix/Endocervix, ThinPrep Imaging System with manual evaluation Document reviewed and electronically signed by: ? Esteban Franco, CT(ASCP) ? Report ??Date: 10/26/2011 10:48 HPV with Pap Test ? Date Ordered: ? 10/26/2011 ? Status: ?? Signed Out ?Date Complete: ? 10/30/2011 ? By: ??System Interface ? Date Reported: ? 10/30/2011 ? Interpretation RESULT: Negative for HPV. No E6 or E7 mRNA is detected from HPV types 16,18,31,33,35, 39,45,51,52,56,58, 59,66, and 68 by nipple machine operator mediated amplification. Comments Document reviewed and electronically signed by: ? System Interface ? Report date: 10/30/2011 By the signature above, the attending physician certifies that he/she has personally conducted a gross and/or microscopic examination of the described specimens and rendered or confirmed the above diagnosis. End of Report [facility] 10/24/2011 10/25/2011 Nereida Chambers MD PATHOLOGY ORDERABLE S Performing Organization Address City/State/[facility] Co de Phone Number [address] [address] documented in this encounter Visit Diagnoses Not on filedocumented in this encounter
--- OUTSIDE RECORDS SUMMARY | 2024-02-01 01:37 | XMS_ITS | Encounter Summary ---
Author Organization [facility] [place] [address] Care Team Providers Care Solar Sales Assessor Name Role Phone Nereida Sharif MD Primary Care Provider [phone] Reason for Visit * Reason Comments Central Serous Retinopathy 9 months f/u Central serous chorioretinopathy OD Encounter Details Date Type Department Care Team (Late st Contact Info) Description 05/05/2016 7:30 AM EST Office [place] [address] Christiano Meyer MD [facility] [address] 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 Combined clinical examination and imaging reveals no progression. The pigment epithelial detachmentis perfectly stable and there is nothing to suggest a choroidal neovascular membrane or active leakage ?? Patient is not on steroids and no other associated pathology is defined. Accordingly, I'm recommending continued observation. She will test each eye separately report promptly if there are any changes. 6 months dilated exam and OCT documented in this encounter Plan of Treatment Upcoming Encounters Date Type Department Care Team (Late st Contact Info) Description 02/11/2024 2:15 PM EDT Office Visit Gastroenterology at [place] [phone] Julee Ibarra [facility] [place] [address] 02/15/2024 10:45 AM EDT Office Visit General Surgery at [place] [phone] Jian Carmichael MD [facility] [place] [address] 03/12/2024 8:00 AM EDT Appointment Mammography/DXA at [place] [phone] Ting George [facility] [place] [address] 03/12/2024 9:00 AM EDT Office Visit [place] [phone] Ting George [facility] [place] [address] documented as of this encounter Procedures Procedure Name Priority Date/Time Associated Diagnosis Comments OCT RETINA - OU - BOTH EYES Routine 05/05/2016 8:59 AM EST COMPUTER SYSTEMS SECURITY ANALYST (central serous retinopathy), right documented in this encounter Results * OCT [id number] EYES (05/05/2016 8:59 AM EST) Anatomical Region Laterality Modality Other Narrative 05/05/2016 8:59 AM EST Right Eye Quality was good. Progression has been stable. Findings include abnormal foveal contour, pigment epithelial detachment. Temporal progression was stable. Superior progression was stable. Nasal progression was stable. Inferior progression was stable. Left Eye Quality was good. Findings include normal observations. Temporal progression was stable. Superior progression was stable. Nasal progression was stable. Inferior progression was stable. Notes No change in PED CBCMD Christiano Meyer MD OPHTHALMOLOGY S [facility] ORDERABLES documented in this encounter Visit Diagnoses Diagnosis COMPUTER SYSTEMS SECURITY ANALYST (central serous retinopathy), right Central serous chorioretinopathy, right documented in this encounter Care Teams Solar Sales Assessor Relationship Specialty Start Date End Date Nereida Sharif MD [address] [place] [address] PCP - General 04/26/10 documented as of this encounter
--- OUTSIDE RECORDS SUMMARY | 2024-02-01 01:37 | XMS_ITS | Encounter Summary ---
Author Organization [facility] Address [address] [place] [address] Care Team Providers Care Hogshead Packer Name Role Phone Unavailable Primary Care Provider Unavailabl e Encounter Details Date Type Department Care Team (Late st Contact Info) Description 03/29/2007 Results Only [facility] - [facility] conversion [address] [place] [address] Nereida Sharif MD [address] [place] [address] Social History Tobacco Use Types Packs/Day Years Used Date Smoking Tobacco: Never Assessed Sex and Gender Information Value Date Recorded Sex Assigned at Not on file Gender Identity Not on file Sexual Orientation Not on file documented as of this encounter Plan of Treatment Not on file documented as of this encounter Procedures Procedure Name Priority Date/Time Associated Diagnosis Comments CYTOPATHOLOGY Routine 03/29/2007 0:00 EDT documented in this encounter Results * CYTOPATHOLOGY (03/29/2007 0:00 EDT) Pathology Report: CYTOPATHOLOGY REPORT Reports generated via electronic interface contain original data; however they are lacking the format of the original report. Caution should be taken when reading/interpreti ng unformatted reports. Name: ? DEV TINAJERO ? Accession #: ? [id number] : ? 1965 (Age: 41) ??F ?Collect Date: ? 03/29/2007 Location: ? [facility] ? Receive Date: ? 04/01/2007 Provider: ?NEREIDA SHARIF MD Copy to: ? Specimen/Source: ?ThinPrep Pap Test, Endocervix, processed on [employer] ThinPrep Imaging System, with manual evaluation Last Menstrual Period: ? 02/27/07 Other: ? HPVA - HPV testing requested if ASC-US on the current ThinPrep Pap test. ? SPECIMEN ADEQUACY ? Satisfactory for Evaluation - transformation zone component present GENERAL CATEGORIZATION ? Negative for Intraepithelial Lesion or Malignancy ? Document reviewed and electronically signed by: ? LOVE Brito(ASCP) ? Report Date: ??04/04/2007 09:55 End of Report [facility] 03/29/2007 04/01/2007 Nereida Sharif MD PATHOLOGY ORDERABLE S [facility] [address] [place] [address] documented in this encounter Visit Diagnoses Not on filedocumented in this encounter
--- OUTSIDE RECORDS SUMMARY | 2024-02-01 01:37 | XMS_ITS | Encounter Summary ---
Author Organization [facility] [place] [address] Care Team Providers Care Electrician Technician Name Role Phone Nereida Sharif MD Primary Care Provider [phone] Reason for Visit * Reason Comments Central Serous Retinopathy 6 mo check C SR MIKE Wilson Encounter Details Date Type Department Care Team (Late st Contact Info) Description 11/13/2014 7:30 AM EDT Follow-[place] [address] Christiano Meyer MD [facility] [place] [address] Central serous chorioretinopathy, unspecified laterality Discharge Disposition: Home Social History Tobacco Use Types Packs/Day Years Used Date Smoking Tobacco: Never Alcohol Use Standard Drinks/Week Comments No 0 (1 standard drink = 0.6 oz pur e alcohol) Sex and Gender Information Value Date Recorded Sex Assigned at Female 07/15/2020 10:54 AM EST Gender Identity Female 12/04/2018 5:53 PM EDT Sexual Orientation Straight 07/15/2020 10 :54 AM EST documented as of this encounter Progress Notes * Christiano Meyer MD - 11/11/2014 8:15 AM EDT Central serous chorioretinopathy right eye with persistent pigment epithelial detachment and 20/25 vision. Amblyopia left eye Dear Dr. Ohara; I had the pleasure seeing Kassandra on November 13, 2014. Her small pigment epithelial detachment in the right eye has not resolved but fortunately it has not progressed. There are no signs of exudative activity or anything to suggest a choroidal neovascular membrane. I suspect strongly that this relates to central serous chorioretinopathy with incomplete resolution. No changes are seen in the fellow eye where she is amblyopic. I've asked [place] return to see you as scheduled or sometime within the next 6 months I would like to see her in about 8-10 months or so. She should remain vigilant and test each eye separately each week and report promptly if there are any acute changes given the remote possibility of a choroidal neovascular membrane. I have reviewed the literature and there are no indications for intravitreal therapy or surgical intervention this time and only observation is warranted. Respectfully Christiano documented in this encounter Plan of Treatment Upcoming Encounters Date Type Department Care Team (Late st Contact Info) Description 02/11/2024 2:15 PM EDT Office Visit Gastroenterology at [place] [phone] Julee Ibarra APRN [facility] [place] [address] 02/15/2024 10:45 AM EDT Office Visit General Surgery at [place] [phone] Jian Carmichael MD [facility] [address] 03/12/2024 8:00 AM EDT Appointment Mammography/[place] [address] Ting George APRN [facility] [address] 03/12/2024 9:00 AM EDT Office Visit General Surgery at [place] [phone] Ting George APRN [facility] [place] [address] documented as of this encounter Procedures Procedure Name Priority Date/Time Associated Diagnosis Comments OCT RETINA - OU - BOTH EYES Routine 11/13/2014 8:13 AM EDT Central serous chorioretinopathy, unspecified laterality documented in this encounter Results * OCT [id number] EYES (11/13/2014 8:13 AM EDT) Anatomical Region Laterality Modality Other Narrative 11/13/2014 8:13 AM EDT Central serous chorioretinopathy history. Small pigment epithelial detachment right eye. No evidence of progression on this imaging scan of subretinal fluid or signs to suggest a choroidal neovascular membrane Christiano Meyer [facility] documented in this encounter Visit Diagnoses Diagnosis Central serous chorioretinopathy, unspecified laterality documented in this encounter Care Teams Electrician Technician Relationship Specialty Start Date End Date Nereida Sharif MD [address] [place] [address] PCP - General 04/26/10 documented as of this encounter
--- OUTSIDE RECORDS SUMMARY | 2024-02-01 01:37 | XMS_ITS | Encounter Summary ---
Author Organization [facility] Address [address] [place] [address] Care Team Providers Care Motorboat Operator Name Role Phone Nereida Sharif MD Primary Care Provider [phone] Encounter Details Date Type Department Care Team (Late st Contact Info) Description 09/28/2023 Lab Requisition [facility] Pathology & Laboratory Medicine - [address] [address] Outr Resulting Lab, Provider Social History Tobacco Use Types Packs/Day Years Used Date Smoking Tobacco: Never Assessed Interpersonal Safety Answer Date Record ed Physically Hurt Never 01/04/2020 Verbally Threaten Not on file 01/04/2020 Sex and Gender Information Value Date Recorded Sex Assigned at Not on file Gender Identity Not on file Sexual Orientation Not on file documented as of this encounter Plan of Treatment Not on file documented as of this encounter Procedures Procedure Name Priority Date/Time Associated Diagnosis Comments ACUTE HEPATITIS PROFILE Routine 09/28/2023 14:20 EDT documented in this encounter Results * ACUTE HEPATITIS PROFILE (09/28/2023 14:20 EDT) Hep B Surface Ag Negative Negative 09/28/2023 23:14 EDT [facility] Hep C Antibody Negative Negative 09/28/2023 23:14 EDT [facility] Hepatitis A Antibody, IgM Negative Negative 09/28/2023 23:14 EDT [facility] Comment:The results of this assay can be falsely lowered due to the consumption of Biotin. Hepatitis B Core Ab, Total Negative Negative 09/28/2023 23:14 EDT [facility] Blood VENOUS BLOOD / Unknown 09/28/2023 14:20 EDT 09/28/2023 21:46 EDT Provider Outr Resulting Lab CHEMISTRY & BLOOD GAS ORDERABLES [facility] [address] [place] [address] documented in this encounter Visit Diagnoses Not on filedocumented in this encounter Care Teams Motorboat Operator Relationship Specialty Start Date End Date Nereida Sharif MD PCP - General 07/25/18 documented as of this encounter
--- OUTSIDE RECORDS SUMMARY | 2024-02-01 01:37 | XMS_ITS | Encounter Summary ---
Author Organization [facility] Address [address] [place] [address] Care Team Providers Care Data Services Developer Name Role Phone Unavailable Primary Care Provider Unavailabl e Encounter Details Date Type Department Care Team (Late st Contact Info) Description 08/27/2008 Before PRISM Converted Visit (Maple) [facility] - Maple conversion [address] [place] [address] Nereida Sharif MD [address] [place] [address] Social History Tobacco Use Types Packs/Day Years Used Date Smoking Tobacco: Never Assessed Sex and Gender Information Value Date Recorded Sex Assigned at Not on file Gender Identity Not on file Sexual Orientation Not on file documented as of this encounter Plan of Treatment Not on file documented as of this encounter Procedures Procedure Name Priority Date/Time Associated Diagnosis Comments HPV DETECTION, HIGH RISK TYPES Routine 08/27/2008 14:48 EDT CYTOPATHOLOGY Routine 08/27/2008 0:00 EDT documented in this encounter Results * HUMAN PAPILLOMA VIRUS DNA TEST (08/27/2008 14:48 EDT) Specimen Description Cervix, ThinPrep vial [facility] Result Negative for HPV types 16, 18, 31, 33, 35, 39, 45, 51, 52, 56, 58, 59, and 68. [facility] Report Status Final 09/08/2008 [facility] 08/27/2008 14:4 8 EDT 09/01/2008 14:48 EDT Nereida Sharif MD MICROBIOLOGY - GENE RAL ORDERABLES [facility] [address] [place] [address] * CYTOPATHOLOGY (08/27/2008 0:00 EDT) Pathology Report: CYTOPATHOLOGY REPORT ? Reports generated via electronic interface contain original data; ? however they are lacking the format of the original report. ? Caution should be taken when reading/interpreti ng unformatted reports. ? Name: ? DEV TINAJERO ? Accession #: ? [id number] ? : ? 1965 (Age: 42) ??F ?Collect Date: ? 08/27/2008 ? Location: ? [facility] ? Receive Date: ? 08/28/2008 ? Provider: ?NEREIDA M DOBBERTIN MD ? Copy to: ? Specimen/Source: ?Pap Test, Endocervix, ThinPrep Imaging System with ? manual evaluation ? Last Menstrual Period: ? 3/16/09 ? Other: ? HPVDX - HPV testing requested regardless of diagnosis on current ThinPrep Pap ?? test. ? SPECIMEN ADEQUACY ? Satisfactory for Evaluation ? - transformation zone component present ? GENERAL CATEGORIZATION ? Negative for Intraepithelial Lesion or Malignancy ? Document reviewed and electronically signed by: ? Marisabel Benton, CT(ASCP) ? Report Date: ??09/01/2008 07:57 ? End of Report ? [facility] 08/27/2008 08/28/2008 Nereida Sharif MD PATHOLOGY ORDERABLE S [facility] [address] [place] [address] documented in this encounter Visit Diagnoses Not on filedocumented in this encounter
--- OUTSIDE RECORDS SUMMARY | 2024-02-01 01:37 | XMS_ITS | Encounter Summary ---
Author Organization [facility] Address [facility] [place] [address] Care Team Providers Care Bacon Slicer Name Role Phone Nereida Sharif MD Primary Care Provider [phone] Reason for Visit * Reason Comments Blurred Vision The patient presents for consultation regarding central serous chorioretinopathy and a chief complaint of reduced visual acuity in the right eye beginning a couple of months ago. MIKE Wilson Encounter Details Date Type Department Care Team (Late st Contact Info) Description 05/15/2013 7:30 AM EST Office [place] [address] Christiano Meyer MD [facility] DR [place] [address] HOOP CUTTER (central serous retinopathy), (Primary Dx) Discharge Disposition: Home Social History Tobacco Use [...] Progress Notes * Christiano Meyer MD - 05/15/2013 8:46 PM EST May 15, 2013 RE: Kassandra Hugo#: [id number] Dear Colleagues, I had the pleasure of seeing your patient, Kassandra Blas for formal consultation on 05/15/2013. In summary, she has central serous chorioretinopathy with the onset of symptoms beginning in March of this year. Fortunately, she notes reduced symptoms and there are no other new concerns at this time.She is ambylopic in the left eye The angiogram and imaging studies confirm the presence of central serous chorioretinopathy in the right eye in the juxtafoveal location. At this time, only observation is indicated, and I have recommended that the patient return here in eight weeks or sooner should her vision become worse. She is currently not on steroids, but has had considerable life stress recently. Lastly, there were no signs of choroidal neovascular membrane. I have reviewed with Kassandra and her all of my findings and concerns today and the need for close followup. Thank you kindly for asking me to provide consultation for this nice patient. When she returns, I will keep you informed regarding her progress. Respectfully, Christiano Meyer MD documented in this encounter Miscellaneous Notes * Miscellaneous - Provider, Scanning - 05/23/2013 10:59 AM EST documented in this encounter Plan of Treatment Upcoming Encounters Date Type Department Care Team (Late st Contact Info) Description 02/11/2024 2:15 PM EDT Office [place] [address] Julee Ibarra APRN [facility] [place] [address] 02/15/2024 10:45 AM EDT Office [place] [address] Jian Carmichael MD [facility] [place] [address] 03/12/2024 8:00 AM EDT Appointment Mammography/[place] [phone] Ting George, [facility] [place] [address] 03/12/2024 9:00 AM EDT Office [place] [phone] Ting Geogre, [facility] [place] [address] documented as of this encounter Procedures Procedure Name Priority Date/Time Associated Diagnosis Comments OCT RETINA - OU - BOTH EYES Routine 05/15/2013 8:49 PM EST HOOP CUTTER (central serous retinopathy), FLUORESCEIN ANGIOGRAPHY - OU - BOTH EYES Routine 05/15/2013 8:49 PM EST HOOP CUTTER (central serous retinopathy), FUNDUS PHOTOS - OU- BOTH EYES Routine 05/15/2013 8:48 PM EST HOOP CUTTER (central serous retinopathy), documented in this encounter Results * OCT Iwehzx-FO-GNGT EYES (05/15/2013 8:49 PM EST) Anatomical Region Laterality Modality Other Christiano Meyer MD OPHTHALMOLOGY S [facility] ORDERABLES * FLUORESCEIN ANGIOGRAPHY - OU- BOTH EYES (05/15/2013 8:49 PM EST) Anatomical Region Laterality Modality Other Narrative 05/15/2013 8:49 PM EST The fluorescein angiogram was indicated by virtue of this patient's central serous chorioretinopathy in the left eye. A typical pattern of leakage and pooling is noted on the angiogram but no choroidal neovascular membrane or other entity. He focus of activity is a juxtafoveal location. MIKE Wilson Procedure Note Christiano Meyer MD - 05/15/2013 The fluorescein angiogram was indicated by virtue of this patient'scentral serous chorioretinopathy in the left eye. A typical pattern ofleakage and pooling is noted on the angiogram but no choroidal neovascularmembrane or other entity. He focus of activity is a juxtafoveal location.MIKE Wilson Christiano Meyer MD OPHTHALMOLOGY S [facility] ORDERABLES * FUNDUS PHOTOS - OU- BOTH EYES (05/15/2013 8:48 PM EST) Anatomical Region Laterality Modality Other Narrative 05/15/2013 8:48 PM EST This photographs indicated by virtue of this patient's serous elevation and to serve as ??baseline reference for future comparison but also for diagnostic purposes. Central like serous changes are evident consistent with central serous chorioretinopathy. Recommend fluorescein ??OCT scan. MIKE Wilson Procedure Note Christiano Meyer MD - 05/15/2013 This photographs indicated by virtue of this patient's serous elevationand to serve as baseline reference for future comparison but also fordiagnostic purposes. Central like serous changes are evident consistentwith central serous chorioretinopathy. Recommend fluorescein OCT scan.MIKE Wilson Christiano Meyer MD OPHTHALMOLOGY S [facility] ORDERABLES documented in this encounter Visit Diagnoses Diagnosis HOOP CUTTER (central serous retinopathy),- Primary documented in this encounter Care Teams Bacon Slicer Relationship Specialty Start Date End Date Nereida Sharif MD [address] [place] [address] PCP - General 04/26/10 documented as of this encounter
--- OUTSIDE RECORDS SUMMARY | 2024-02-01 01:37 | XMS_ITS | Encounter Summary ---
Author Organization [facility] Address [facility] [place] [address] Care Team Providers Care Handle Finisher Name Role Phone Nereida Sharif MD Primary Care Provider [phone] Reason for Visit * Reason Comments Eye Problem WALL TAPER HELPER OD .MIKE MONTANEZ Encounter Details Date Type Department Care Team (Late st Contact Info) Description 08/08/2013 8:00 AM EST Follow-[place] [address] Christiano Meyer MD [facility] [place] [address] WALL TAPER HELPER (central serous retinopathy), unspecified laterality (Primary Dx); Central serous chorioretinopathy, right Discharge Disposition: Home Social History Tobacco Use [...] Progress Notes * Christiano Meyer MD - 08/17/2013 11:54 AM EDT 1. WALL TAPER HELPER (central serous retinopathy), unspecified laterality OCT Hqqnmv-YH-LVSE EYE PLEASE IGNORE OCT NOTATION ABOVE REFERENCING OS FEDERAL LAW CLERK IS OS BUT CSCR IS OD!!!!!!!!!!> NO SIGNS OS ABOVE Exam and FA reveals CSCR with features of PED as well Right Eye. No changes OS Follow closely 8 weeks or rosenda prn OCT next CBC MD documented in this encounter Miscellaneous Notes * Miscellaneous - Provider, Scanning - 08/14/2013 12:56 PM EDT documented in this encounter Plan of Treatment Upcoming Encounters Date Type Department Care Team (Late st Contact Info) Description 02/11/2024 2:15 PM EDT Office Visit Gastroenterology at [place] [phone] Julee Ibarra [facility] [place] [address] 02/15/2024 10:45 AM EDT Office [place] [phone] Jian Carmichael MD [facility] [place] [place] [address] 03/12/2024 8:00 AM EDT Appointment Mammography/[place] [address] Ting George, [facility] [place] [address] 03/12/2024 9:00 AM EDT Office [place] [phone] Ting George [facility] [address] Pending Results Name Type Priority Associated Diagnoses Date /Time OCT Jiqkkk-OF-GAET EYE Ophthalmology Routine WALL TAPER HELPER (central serous retinopathy), unspecified laterality 08/17/2013 11:55 AM EDT documented as of this encounter Procedures Procedure Name Priority Date/Time Associated Diagnosis Comments FLUORESCEIN ANGIOGRAPHY - OD - RIGHT EYE Routine 08/17/2013 11:58 AM EDT WALL TAPER HELPER (central serous retinopathy), unspecified laterality OCT RETINA - OS - LEFT EYE Routine 08/17/2013 11:55 AM EDT WALL TAPER HELPER (central serous retinopathy), unspecified laterality documented in this encounter Results * FLUORESCEIN ANGIOGRAPHY - OD - RIGHT EYE (08/17/2013 11:58 AM EDT) Anatomical Region Laterality Modality Other Narrative 08/17/2013 11:58 AM EDT OD: Progressive hyperfluoresence and pooling but no late leakage. R/O CSCSR/CNVM/PED. Follow closely MIKE MONTANEZ Procedure Note Christiano Meyer MD - 08/17/2013 OD: Progressive hyperfluoresence and pooling but no late leakage. R/OCSCSR/CNVM/PED. Follow closely MIKE MONTANEZ Christiano Meyer MD OPHTHALMOLOGY S [facility] ORDERABLES documented in this encounter Visit Diagnoses Diagnosis WALL TAPER HELPER (central serous retinopathy), unspecified laterality- Primary Central serous chorioretinopathy, right documented in this encounter Care Teams Handle Finisher Relationship Specialty Start Date End Date Nereida Sharif MD [address] [place] [address] PCP - General 04/26/10 documented as of this encounter
--- OUTSIDE RECORDS SUMMARY | 2024-02-01 01:37 | XMS_ITS | Encounter Summary ---
Author Organization [facility] [place] [address] Care Team Providers Care Health Type Technician Name Role Phone Nereida Sharif MD Primary Care Provider [phone] Encounter Details Date Type Department Care Team (Late st Contact Info) Description 05/15/2018 Ancillary Procedure [place] [phone] Nereida Sharif MD [address] [place] [address] Social History Tobacco Use Types [...] 2:15 PM EDT Office Visit [place] [phone] Julee Ibarra APRN [facility] [place] [address] 02/15/2024 10:45 AM EDT Office Visit [place] [phone] Jian Carmichael MD [facility] [place] [address] 03/12/2024 8:00 AM EDT Appointment Mammography/[place] [address] Ting George [facility] [place] [address] 03/12/2024 9:00 AM EDT Office Visit [place] [phone] Ting George [facility] [place] [address] documented as of this encounter Procedures Procedure Name Priority Date/Time Associated Diagnosis Comments FILM LIBRARY STORAGE ONLY MAMMO Routine 05/15/2018 12:00 AM EST documented in this encounter Results * Film Library- Storage Only Mammo (05/15/2018 12:00 AM EST) Narrative RAD - 11/26/2018 11:49 AM EDT This exam is auto-finalizing. It's purpose is for storage only. Nereida Sharif MD IMG FILM LIBRARY ORD ERABLES [place], [place] documented in this encounter Visit Diagnoses Not on filedocumented in this encounter Care Teams Health Type Technician Relationship Specialty Start Date End Date Nereida Sharif MD [address] [place] [address] PCP - General 04/26/10 documented as of this encounter
--- OUTSIDE RECORDS SUMMARY | 2024-02-01 01:37 | XMS_ITS | Encounter Summary ---
Author Organization [facility] [place] [address] Care Team Providers Care Licensing Specialist Name Role Phone Nereida Sharif MD Primary Care Provider [phone] Reason for Visit * Reason Comments Health Screening Encounter Details Date Type Department Care Team (Late st Contact Info) Description 10/03/2013 Health Design Printing Machine Set Up Operator [facility] [address] [place] [address] Marisabel Wheeler RN Social History Tobacco Use Types Packs/Day Years [...] Sign Reading Time Taken Comments Blood Pressure 122/84 10/01/2013 2:11 PM EDT Pulse - - Temperature - - Respiratory Rate - - Oxygen Saturation - - Inhaled Oxygen Concentration - - Weight 71.4 kg (157 lb 8 oz) 10/01/2013 2:11 PM EDT Height 163.8 cm (5' 4.5) 10/01/2013 2:11 PM EDT Body Mass Index 26.62 10/01/2013 2:11 PM EDT documented in this encounter Progress Notes * Marisabel Wheeler RN - 10/03/2013 2:12 PM EDT Health Screening Total cholesterol: 216 HDL cholesterol: 63 Total/HDL cholesterol ratio: 3.4 Fasting (>6 hrs post-prandial) glucose: 82 Waist circumference: 32 We use a rapid fingerstick method to measure total cholesterol, HDL, and blood glucose. The Shel[employer]ie LDX System is a eiobp-zu-vycs testing device that separates plasma from whole blood and providesanalytical results in five minutes. This system is certified by the Cholesterol Reference Method Laboratory Network (CRMLN) and meets the National Education Cholesterol Program's analytical goals. documented in this encounter Plan of Treatment Upcoming Encounters Date Type Department Care Team (Late st Contact Info) Description 02/11/2024 2:15 PM EDT Office Visit Gastroenterology at [place] [phone] Julee Ibarra [facility] [place] [address] 02/15/2024 10:45 AM EDT Office [place] [address] Jian Carmichael MD [facility] [place] [address] 03/12/2024 8:00 AM EDT Appointment Mammography/DXA at [place] [phone] Ting George [facility] [place] [address] 03/12/2024 9:00 AM EDT Office Visit General Surgery at [place] [phone] Ting George [facility] [place] [address] documented as of this encounter Visit Diagnoses Not on filedocumented in this encounter Care Teams Licensing Specialist Relationship Specialty Start Date End Date Nereida Sharif MD [address] [facility] [address] [place] [address] PCP - General 04/26/10 documented as of this encounter
--- OUTSIDE RECORDS SUMMARY | 2024-02-01 01:37 | XMS_ITS | Encounter Summary ---
Author Organization [facility] Address [facility] [place] [address] Care Team Providers Care Drill Runner Helper Name Role Phone Nereida Sharif MD Primary Care Provider [phone] Reason for Visit * Reason Comments Blurred Vision 4-mon f/u for RN ADMISSIONS-OD ,OCT+Fundus-OD Encounter Details Date Type Department Care Team (Late st Contact Info) Description 12/12/2013 8:00 AM EDT [place] [address] [facility] DR [place] [address] Central serous chorioretinopathy, right (Primary Dx) Discharge Disposition: Home Social History [...] Progress Notes * Christiano Meyer MD - 12/11/2013 11:[address] Ohara; I had the pleasure seeing this patient on December 12, 2013. In summary, her central serous chorioretinopathy in the right eye has improved but she has a small PED in a juxta foveal location which has not resolved. Fortunately, this is not choroidal neovascular membrane. At this point, she is still somewhat frustrated with her vision but only observation is indicated. There is no indication for laser, however, I would have a low threshold should subretinal fluid becoming manifest.. I would like to see Kassandra in about 10 weeks or sooner if there are any changes. We will perform spectral domain imaging. If she still having symptoms then we should perform a fluorescein angiogram.I've asked the patient to see me sooner if there is significant progression. We will schedule her promptly should that be necessary. I've advised Kassandra to return to see you as scheduled Respectfully Christiano Dill MD Physician 09/03/2013 7:33 PM Addendum 1. 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 No changes OS Follow closely 8 weeks or rosenda prn OCT next CBC MD documented in this encounter Plan of Treatment Upcoming Encounters Date Type Department Care Team (Late st Contact Info) Description 02/11/2024 2:15 PM EDT Office [place] [phone] [facility] [place] [address] 02/15/2024 10:45 AM EDT Office [place] [address] [facility] [place] [address] 03/12/2024 8:00 AM EDT Appointment Mammography/[place] [address] [facility] [place] [address] 03/12/2024 9:00 AM EDT Office [place] [address] [facility] [place] [address] documented as of this encounter Procedures Procedure Name Priority Date/Time Associated Diagnosis Comments OCT RETINA - OU - BOTH EYES Routine 12/21/2013 12:02 PM EDT Central serous chorioretinopathy, right documented in this encounter Results * OCT Bbjwqs-KJ-HUXF EYES (12/21/2013 12:02 PM EDT) Anatomical Region Laterality Modality Other Christiano Meyer MD [facility] documented in this encounter Visit Diagnoses Diagnosis Central serous chorioretinopathy, right- Primary documented in this encounter Care Teams Drill Runner Helper Relationship Specialty Start Date End Date Nereida Sharif MD [address] [place] [address] PCP - General 04/26/10 documented as of this encounter
--- OUTSIDE RECORDS SUMMARY | 2024-02-01 01:37 | XMS_ITS | Encounter Summary ---
Author Organization [facility] Address [address] [place] [address] Care Team Providers Care Recruiting Internship Name Role Phone Unknown, Provider Primary Care Provider [phone] Encounter Details Date Type Department Care Team (Late st Contact Info) Description 04/22/2018 Results Only [facility]- [facility] [phone] Nereida Sharif MD [address] [place] [phone] Social History Tobacco Use Types Packs/Day Years [...] Diagnosis Comments PAP TEST- RESULT ONLY Routine 04/22/2018 0:00 EST documented in this encounter Results * PAP TEST- RESULT ONLY (04/22/2018 0:00 EST) Pathology Report: CYTOPATHOLOGY REPORT Reports generated via electronic interface contain original data; however they are lacking the format of the original report. Caution should be taken when reading/interpreti ng unformatted reports. Name: ? DEV TINAJERO ? Accession #: ? [id number] ? : ? 1965 (Age: 52) ??F ?Collect Date: ? 04/22/2018 ? Location: ? [facility] ? Receive Date: ? 04/23/2018 ? Provider: NEREIDA SHARIF MD Copy to: ? Final Report SPECIMEN ADEQUACY ? Satisfactory for Evaluation - transformation zone component present GENERAL CATEGORIZATION ? Negative for Intraepithelial Lesion or Malignancy ?? Last Menstrual Period: 10/2017 Specimen/Source: ??Pap Test, Cervix/Endocervix, ThinPrep Imaging System with manual evaluation Document reviewed and electronically signed by: ? Azam Singh, CT(ASCP) ? Report ??Date: 05/03/2018 11:03 HPV with Pap Test ? Date Ordered: ? 05/03/2018 ? Status: ?? Signed Out ?Date Complete: ? 05/06/2018 ? By: ??System Interface ? Date Reported: ? 05/06/2018 ? Interpretation RESULT: Negative for HPV. No E6 or E7 mRNA is detected from HPV types 16,18,31,33,35, 39,45,51,52,56,58, 59,66, and 68 by water pumper mediated amplification. Comments Document reviewed and electronically signed by: ? System Interface ? Report date: 05/06/2018 By the signature above, the attending physician certifies that he/she has personally conducted a gross and/or microscopic examination of the described specimens and rendered or confirmed the above diagnosis. End of Report [facility] 04/22/2018 04/23/2018 Nereida Sharif MD PATHOLOGY ORDERABLE S [facility] [address] [place] [address] documented in this encounter Visit Diagnoses Not on filedocumented in this encounter Care Teams Recruiting Internship Relationship Specialty Start Date End Date Unknown, Provider, PCP - General 04/13/15 07/24/18 documented as of this encounter
--- OUTSIDE RECORDS SUMMARY | 2024-02-01 01:37 | XMS_ITS | Encounter Summary ---
Author Organization [facility] [place] [address] Care Team Providers Care Mold Dresser Name Role Phone Nereida Sharif MD Primary Care Provider [phone] Encounter Details Date Type Department Care Team (Late st Contact Info) Description 05/15/2014 7:40 AM EST - 05/15/2014 11:59 PM EST Hospital [place] [address] César Garza MD [address] [place] [address], [facility] [place] [address] Discharge Disposition: Home Social History Tobacco Use [...] 2:15 PM EDT Office Visit [place] [address] Julee Ibarra APRN [facility] [place] [address] 02/15/2024 10:45 AM EDT Office Visit [place] [address] Jian Carmichael MD [facility] [place] [address] 03/12/2024 8:00 AM EDT Appointment Mammography/[place] [address] Ting George APRN [facility] [place] [address] 03/12/2024 9:00 AM EDT Office Visit [place] [phone] Ting George ETHNIC STUDIES PROFESSOR [facility] [address] [place] [address] documented as of this encounter Procedures Procedure Name Priority Date/Time Associated Diagnosis Comments TSH Routine 05/15/2014 7:58 AM EST T4, FREE Routine 05/15/2014 7:58 AM EST LIPID PANEL (REFLEX DIRECT LDL) Routine 05/15/2014 7:58 AM EST COMPREHENSIVE METABOLIC PANEL Routine 05/15/2014 7:58 AM EST documented in this encounter Results * T4, free (05/15/2014 7:58 AM EST) Free T4 1.10 0.93 - 1.70 ng/dL [facility] Blood specimen (specimen) Venous Draw / Unknown 05/15/2014 7:58 AM EST 05/15/2014 8:04 AM EST Narrative Resulting Agency Comment Spec In Lab César Garza MD CHEMISTRY ORDERABLES [facility] * TSH (05/15/2014 7:58 AM EST) Thyroid Stimulating Hormone 3.89 0.27 - 4.20 mcIU/mL [facility] Blood specimen (specimen) Venous Draw / Unknown 05/15/2014 7:58 AM EST 05/15/2014 8:04 AM EST Narrative Resulting Agency Comment Spec In Lab César Garza MD CHEMISTRY ORDERABLES [facility] * (ABNORMAL) Lipid panel (fasting) (05/15/2014 7:58 AM EST) Cholesterol, Total 242(H) <=199 mg/dL [facility] Comment: Recommendations of the NCEP Adult Treatment Panel for the following risk cutoff thresholds for the [place] population: Desirable: <200 mg/dL Borderline High: 200-239 mg/dL High: > or = 240 mg/dL Triglyceride 98 <=149 mg/dL [facility] Comment: Reference Range: Normal triglycerides: ??<150 mg/dL Borderline high: ??150-199 mg/dL High: ??200-499 mg/dL Very high: ??>pk=405 mg/dL DODIE 2001; 285(19):6628-8208 HDL Cholesterol 62 >=40 mg/dL [facility] Comment: Reference range: ??Low HDL: ?? < 40 mg/dL ??Normal: ?40-60 mg/dL ??Desirable: > 60 mg/dL DODIE 2001; 285(19):6644-3837 LDL Cholesterol 160(H) <=99 mg/dL [facility] Comment: Reference range: ?? Optimal: ?<100 mg/dL ?? Near Optimal/Above Optimal: ?? 100-129 mg/dL ?? Borderline high: ?130-159 mg/dL ?? High: ? 160-189 mg/dL ?? Very high: ?>so=301 mg/dL DODIE 2001: 285(19):8351-6304 Cholesterol/HDL Ratio 3.9 ratio [facility] Comment: A Cholesterol to HDL ratio below 4:1 is desirable. ??Studies suggest that increased CAD risk occurs at ratios above 5 for females and above 6 for men. ? [place] Heart Association ??(http://www.americanheart.org) ? Bhumi Int Med, 1994; 121:641 ? AM J Med, 1998; 105(1A):48S Blood specimen (specimen) Venous Draw / Unknown 05/15/2014 7:58 AM EST 05/15/2014 8:04 AM EST Narrative Resulting Agency Comment Spec In Lab César Garza MD CHEMISTRY ORDERABLES [facility] * (ABNORMAL) Comprehensive metabolic panel (non-fasting) (05/15/2014 7:58 AM EST) [facility] Glucose 96 60 - 199 mg/dL [facility] Comment:Diabetes: >=200 mg/d L plus symptoms Blood Urea Nitrogen 21(H) 8 - 18 mg/dL [facility] Creatinine 0.61(L) 0.70 - 1.20 mg/dL [facility] Comment: Please note that the pediatric reference intervals supplied above were not validated at [facility]. Results from pediatric patients should be interpreted [...] the following links into your internet browser. [email or web address] Blood specimen (specimen) Venous Draw / Unknown 05/15/2014 7:58 AM EST 05/15/2014 8:04 AM EST Narrative Resulting Agency Comment Spec In Lab César Garza MD CHEMISTRY ORDERABLES [facility] documented in this encounter Visit Diagnoses Not on filedocumented in this encounter Care Teams Mold Dresser Relationship Specialty Start Date End Date Nereida Sharif MD [address] [place] [address] PCP - General 04/26/10 documented as of this encounter
--- OUTSIDE RECORDS SUMMARY | 2024-02-01 01:37 | XMS_ITS | Encounter Summary ---
Author Organization [facility] [place] [address] Care Team Providers Care Manager State Name Role Phone Nereida Sharif MD Primary Care Provider [phone] Encounter Details Date Type Department Care Team (Late st Contact Info) Description 11/22/2018 Ancillary Procedure [place] [phone] Nereida Sharif MD [address] [place] [address] Social History Tobacco Use Types [...] 2:15 PM EDT Office [place] [phone] Julee Ibarra APRN [facility] [place] [address] 02/15/2024 10:45 AM EDT Office [place] [phone] Jian Carmichael MD [facility] [place] [address] 03/12/2024 8:00 AM EDT Appointment Mammography/[place] [address] Ting George [facility] [place] [address] 03/12/2024 9:00 AM EDT Office [place] [phone] Ting George [facility] [place] [address] documented as of this encounter Procedures Procedure Name Priority Date/Time Associated Diagnosis Comments FILM LIBRARY STORAGE ONLY MAMMO Routine 11/22/2018 12:00 AM EDT documented in this encounter Results * Film Library- Storage Only Mammo (11/22/2018 12:00 AM EDT) Narrative [facility] - 11/26/2018 11:49 AM EDT This exam is auto-finalizing. It's purpose is for storage only. Nereida Sharif MD IMG FILM LIBRARY ORD ERABLES [place], [place] documented in this encounter Visit Diagnoses Not on filedocumented in this encounter Care Teams Manager State Relationship Specialty Start Date End Date Nereida Sharif MD [address] [place] [address] PCP - General 04/26/10 documented as of this encounter
--- OUTSIDE RECORDS SUMMARY | 2024-02-01 01:37 | XMS_ITS | Encounter Summary ---
Author Organization [facility] Address [address] [place] [address] Care Team Providers Care Internet Application Developer Name Role Phone Unknown, Provider Primary Care Provider Encounter Details Date Type Department Care Team (Latest Contact Info) Description 07/22/2018 12:40 EST - 07/22/2018 23:59 EST Hospital Encounter [address] [address] Unknown, Provider, Discharge Disposition: Home or Self Care Social History Tobacco Use Types Packs/Day Years Used Date Smoking Tobacco: Never Assessed Sex and Gender Information Value Date Recorded Sex Assigned at Not on file Gender Identity Not on file Sexual Orientation Not on file documented as of this encounter Discharge Disposition Disposition Code Departure Means Destination Home or Self [facility] documented in this encounter Plan of Treatment Not on file documented as of this encounter Visit Diagnoses Not on filedocumented in this encounter Care Teams Internet Application Developer Relationship Specialty Start Date End Date Unknown, Provider, PCP - General 04/13/15 07/24/18 documented as of this encounter
--- OUTSIDE RECORDS SUMMARY | 2024-02-01 01:37 | XMS_ITS | Encounter Summary ---
Author Organization [facility] Address [facility] [address] [facility] [place] [address] Care Team Providers Care Cyber Threat Analyst Name Role Phone Nereida Sharif MD Primary Care Provider [phone] Reason for Visit * Reason Comments Eye Problem Pt is shared with Dr Evelyn Ohara Encounter Details Date Type Department Care Team (Late st Contact Info) Description 05/15/2014 8:30 AM EST Follow-[place] [address] Christiano Meyer MD [facility] DR [place] [address] Central serous chorioretinopathy, unspecified laterality Discharge Disposition: [...] Progress Notes * Christiano Meyer MD - 05/15/2014 9:31 AM EST Central serous chorioretinopathy right eye with persistent pigment epithelial detachment and 20/25 vision. Amblyopia left eye Dear Dr. Ohara; Kassandra returned to see me on May 15, 2014. In summary, she has a small persistent pigment epithelial defect in the right eye which has not resolved. Fortunately, clinical examination and imaging reveals no subretinal fluid and there are no signs of progression. Kassandra's current life stressors are probably exacerbating this condition. Fortunately, no new sites of leakage are seen Given her excellent level of visual acuity,, I am going to recommend only observation. I asked her to consider second opinion I am quite comfortable with my recommendation. As you know, she is amblyopic in the left eye. Accordingly, she should report immediately for any worsening of her symptoms inthe right eye. For most any pigment epithelial detachment, they are always slow to resolve and I think patience is in order. When Niecy returns to see me, I will keep you informed regarding her progress Respectfully Christiano Dear Dr. Ohara; I had the pleasure seeing this patient 2 months after her last examination. While there are features to suggest that this is his central serous retinopathy, the predominant clinical picture in the right eye is a small pigment epithelial detachment but without signs of acromial neovascular membrane. I perform fluorescein angiography as well as spectral domain imaging. The studies revealed subretinal pigment epithelial fluid with elevation. Fortunately, there are no signs of progression. There are no signs of parafoveal telangiectasia or other macular pathology. Here again, there are no indications to proceed with any form of therapy including laser or intravitreal therapy. I think that this patient should proceed with observation and report promptly if there are any changes. There is certainly no pinpoint source of leakage to laser. Fortunately there are no changes in the other eye. At some point, and may be worthwhile to consider having the patient see my colleague Dr. Juan markham if she has any other ideas or perspective on this patient. Remarkably, she measures 20/20 at distance and 20/30 at near despite the juxtafoveal location. Importantly, there are no signs of any pigment epithelial abnormalities in the left eye. The left eye and macular are normal. Her vision in the left eye actually measures less then the right eye and I am assuming that this is a refractive error or amblyopia. The optic nerve and retinal vessels are normal. Please let me know it if she needs any further workup. She is as you know rather hyperopic. When Kassandra returns to see me in 3 months, I will keep you informed regarding her progress. I willsend her a copy of this correspondence for her review. She has been able to contact me easily in the past for further clarification and questions. Respectfully documented in this encounter Plan of Treatment Upcoming Encounters Date Type Department Care Team (Late st Contact Info) Description 02/11/2024 2:15 PM EDT Office Visit Gastroenterology at [place] [address] Julee Ibarra [facility] [place] [address] 02/15/2024 10:45 AM EDT Office Visit General Surgery at [place] [address] Jian Carmichael MD [facility] [place] [address] 03/12/2024 8:00 AM EDT Appointment Mammography/DXA at [place] [address] Ting George, [facility] [place] [address] 03/12/2024 9:00 AM EDT Office Visit General Surgery at [place] [address] Ting George [facility] [place] [address] documented as of this encounter Visit Diagnoses Diagnosis Central serous chorioretinopathy, unspecified laterality documented in this encounter Care Teams Cyber Threat Analyst Relationship Specialty Start Date End Date Nereida Sharif MD [address] [place] [address] PCP - General 04/26/10 documented as of this encounter
--- OUTSIDE RECORDS SUMMARY | 2024-02-01 01:37 | XMS_ITS | Encounter Summary ---
[place] [address] Care Team Providers Care Leather Skinner Name Role Phone Nereida Sharif MD Primary Care Provider [phone] Encounter Details Date Type Department Care Team (Latest Contact Info) Description 12/09/2018 2:11 PM EDT - 12/09/2018 11:59 PM EDT Hospital [place] [phone] Cris Wilson MD [facility] [place] [address] Abnormal ultrasound Discharge Disposition: Home Social History Tobacco Use [...] 2:15 PM EDT Office [place] [phone] Julee Ibarra, [facility] [place] [address] 02/15/2024 10:45 AM EDT Office [place] [phone] Jian Carmichael MD [facility] [place] [address] 03/12/2024 8:00 AM EDT Appointment Mammography/[place] [phone] Ting George, [facility] [place] [address] 03/12/2024 9:00 AM EDT Office [place] [address] Ting George, [facility] [place] [address] documented as of this encounter Procedures Procedure Name Priority Date/Time Associated Diagnosis Comments MAMMO STEREOTACTIC BIOPSY LEFT Routine 12/09/2018 3:41 PM EDT Abnormal ultrasound SPECIMEN TO PATHOLOGY Routine 12/09/2018 3:24 PM EDT SURGICAL PATHOLOGY REPORT Routine 12/09/2018 3:20 PM EDT documented in this encounter Results * Mammo Stereotactic Biopsy Left (12/09/2018 3:41 PM EDT) Anatomical Region Laterality Modality Breast N/A Mammography Impressions 12/11/2018 12:37 PM EDT Concordant high risk result RECOMMENDATION: In this patient in whom the lesion measures 1 cm and who also has incidental high risk atypical lobular hyperplasia I would advise surgical consultation to discuss excision and risk assessment and screening going forward. I phoned these results and recommendations to the patient on 12/11/2018 at 1236 hours. REVIEW PATH CONFERENCE?: Yes, radial scar versus complex sclerosing lesion Thank you for letting us participate in the care of this patient. For questions regarding this report, please contact the number below. ? Electronically signed by: Cris Wilson [facility] ([phone]), at 12/11/2018 12:37 PM Narrative 12/11/2018 12:37 PM EDT STEREOTACTIC GUIDED VACUUM ASSISTED BIOPSY OF THE LEFT BREAST LEFT BREAST ULTRASOUND: CLINICAL HISTORY: Abnormal mammogram architectural distortion in the left breast 1:00 radian 5 cm from the nipple Left breast ultrasound: I performed high-resolution ultrasound following the technologist of the left upper outer quadrant 1:00 radian middle third area. Sonographically there is no evidence of architectural distortion, abnormal acoustical shadowing, or dominant cyst. Procedural details: Informed consent was obtained and a time out procedure was performed per protocol. The patient gave permission to proceed. Using sterile technique and local anesthetic (less than 20cc's of 1% lidocaine) a biopsy was performed using tomographic guidance. Multiple core biopsy specimens were obtained using a 9g vacuum assist device. 6 core biopsy specimens were obtained using a [employer] 9g device. Biopsy specimens were radiographed. ??The abnormality was present on the specimen digital radiograph. A [employer] cylinder marker clip was placed. Cranio-caudal and lateral digital mammography was performed to determine biopsy marker placement. ??The marker was shown to be at the biopsy site, at the superior aspect of the area of distortion COMPLICATIONS: None. PROCEDURAL ATTESTATION: Resident: None I performed the procedure without a resident. IMAGING DIFFERENTIAL DIAGNOSIS: Radial scar, invasive carcinoma PATHOLOGIC DIAGNOSIS: Radial scar, incidental atypical lobular hyperplasia Cris Wilson MD IMG MAMMO ORDERABL ES * Specimen to Pathology (12/09/2018 3:24 PM EDT) AP Specimen 12/09/2018 3:24 PM EDT 12/09/2018 3:24 PM EDT Narrative [facility] - 12/09/2018 3:24 PM EDT Specimen requisition ordered. ??Separate Pathology report to follow Cris Wilson MD PATHOLOGY/CYTOLOGY ORDERABLES [facility] [place] [address] * Surgical Pathology Report (12/09/2018 3:20 PM EDT) Final Diagnosis [id number] ? Location: 3L The signing pathologist has (i) examined the relevant preparation(s) for the specimen(s) and (ii) rendered or confirmed the diagnosis(es). . ?Surgical Pathology DIAGNOSIS Needle biopsies: ?Left breast Diagnosis: ?- Focal, incidental atypical lobular hyperplasia ?- Complex sclerosing lesion/radial scar with usual ?ductal hyperplasia and cysts ?- Adenosis and apocrine metaplasia Microcalcifications: ??Assocated with sclerosing lesion and benign ducts and lobules Electronically signed by: ??Sylvester Abdi MD Verified: ??12/11/2018 ?Pathologist Performed at: ??-[facility] Dept. of Pathology, [place], [place] ADDITIONAL STUDIES Immunohistochemistry Studies: Formalin-fixed, paraffin-embedded tissue sections are studied using the polymer technique with appropriate positive and negative controls. ?These IHC studies provide the pathologist with adjunctive diagnostic information. Antibody specificity has been verified by testing antibodies on a series of in-house tissues with known immunohistochemical performance characteristics. The clinical interpretation of any antibody positive staining or its absence is evaluated within the context of clinical presentation, morphology, histopathological criteria and other diagnostic tests. Block ? Antibody ?Result (Positive/Negative) A1 ? E-cadherin ? Negative in focal [facility] CLINICAL INFORMATION Specimen Submitted: A - Left breast stereo biopsy Clinical History and Diagnosis: Arch distortion: 1. IDC 2. Radial scar Report to: Nereida Sharif SPECIMEN PROCESSING A - Labeled/Fixative: Left breast stereo biopsy, formalin. Quantity/Size: Multiple, ranging from 0.2 ?? -3 x 0.2 cm. Tissue Description: white yellow fibrofatty needle core biopsies. Sections/Processing: Entirely submitted in 3 cassettes labeled A1-A3. Ischemic Time: 5 minutes ??jmb 12/11/2018 11:46 AM EDT [facility] BREAST STRUCTURE / Unknown 12/09/2018 3:20 PM EDT 12/09/2018 3:20 PM EDT Cris Wilson MD PATHOLOGY/CYTOLOGY ORDERABLES [facility] [place] [address] documented in this encounter Visit Diagnoses Diagnosis Abnormal ultrasound Other nonspecific (abnormal) findings on radiological and other examinations of body structure documented in this encounter Administered Medications Inactive Administered Medications - up to 3 most recent administrations Medication Order MAR Action Action Date Dose Rate Site lidocaine (XYLOCAINE) 10 mg/mL (1 %) injection 20 mg 20 mg, Intradermal, ONCE, 1 dose, On 12/09/18 at 1545, Routine Given 12/09/2018 3:15 PM EDT 20 mg documented in this encounter Care Teams Leather Skinner Relationship Specialty Start Date End Date Nereida Sharif MD [address] [place], [place] [address] [place] [address] PCP - General 04/26/10 documented as of this encounter
--- OUTSIDE RECORDS SUMMARY | 2024-02-01 01:37 | XMS_ITS | Encounter Summary ---
Author Organization [facility] Address [facility] [place] [address] Care Team Providers Care Lead Injection Mold Technician Name Role Phone Nereida Sharif MD Primary Care Provider [phone] Reason for Visit * Reason Comments Follow-up Patient returns for planned follow-up visit in dilated exam both eyes. MIKE Wilson Encounter Details Date Type Department Care Team (Late st Contact Info) Description 02/13/2014 8:00 AM EDT [place] [address] Christiano Meyer MD [facility] DR OPHTHALM[place] [address] Central serous chorioretinopathy, unspecified laterality (Primary Dx) Discharge Disposition: Home Social History [...] Progress Notes * Christiano Meyer MD - 02/12/2014 7:[address] Ohara; I had the pleasure [...] past for further clarification and questions. Respectfully Christiano Dear Dr Ohara; I had the pleasure [...] to see you as scheduled Respectfully Christiano documented in this encounter Plan of Treatment Upcoming Encounters Date Type Department Care Team (Late st Contact Info) Description 02/11/2024 2:15 PM EDT Office Visit Gastroenterology at [address] Julee Ibarra [facility] [place] [address] 02/15/2024 10:45 AM EDT Office [place] [address] Jian Carmichael MD [facility] [place] [address] 03/12/2024 8:00 AM EDT Appointment Mammography/DXA at [place] [phone] Ting George, [facility] [place] [address] 03/12/2024 9:00 AM EDT Office Visit General Surgery at [place] [phone] Ting George [facility] [place] [address] documented as of this encounter Procedures Procedure Name Priority Date/Time Associated Diagnosis Comments OCT RETINA - OU - BOTH EYES Routine 02/15/2014 10:15 PM EDT Central serous chorioretinopathy, unspecified laterality FUNDUS PHOTOS - OU- BOTH EYES Routine 02/15/2014 10:14 PM EDT Central serous chorioretinopathy, unspecified laterality FLUORESCEIN ANGIOGRAPHY - OU - BOTH EYES Routine 02/15/2014 10:13 PM EDT Central serous chorioretinopathy, unspecified laterality documented in this encounter Results * OCT [id number] EYES (02/15/2014 10:15 PM EDT) Anatomical Region Laterality Modality Other Christiano Meyer MD [facility]Y [facility] [place] [facility] * FUNDUS PHOTOS - OU- BOTH EYES (02/15/2014 10:14 PM EDT) Anatomical Region Laterality Modality Other Narrative 02/15/2014 10:14 PM EDT A focal area of RPE alteration is seen inferonasal to the macula with elevation but no hemorrhage is seen and overall there are no new changes. ?? Christiano Meyer M.D. Procedure Note Christiano Meyer MD - 02/15/2014 A focal area of RPE alteration is seen inferonasal to the macula withelevation but no hemorrhage is seen and overall there are no new changes.Christiano Meyer M.D. Christiano Meyer MD [facility]AL[facility]OLOGY [facility] [place] [facility] * FLUORESCEIN ANGIOGRAPHY - OU- BOTH EYES (02/15/2014 10:13 PM EDT) Anatomical Region Laterality Modality Other Narrative 02/15/2014 10:13 PM EDT This study was indicated by virtue of the patient's largely unexplained macular pathology in the right eye. ??Early leakage with pooling is seen in a discrete fashion just inferonasal to the central macula. ??No neovascular membrane ascertained. ??No pathology seen in the other eye. Christiano Meyer M.D. Procedure Note Christiano Meyer MD - 02/15/2014 This study was indicated by virtue of the patient's largely unexplainedmacular pathology in the right eye. Early leakage with pooling is seen nicola discrete fashion just inferonasal to the central macula. No neovascularmembrane ascertained. No pathology seen in the other eye. Christiano Meyer M.D. Christiano Meyer MD OPHTHALMOLOGY S [facility] ORDERABLES documented in this encounter Visit Diagnoses Diagnosis Central serous chorioretinopathy, unspecified laterality- Primary documented in this encounter Care Teams Lead Injection Mold Technician Relationship Specialty Start Date End Date Nereida Sharif MD [address] [place] [address] PCP - General 04/26/10 documented as of this encounter
--- OUTSIDE RECORDS SUMMARY | 2024-02-01 01:37 | XMS_ITS | Encounter Summary ---
Author Organization [facility] Address [address] [place] [address] Care Team Providers Care Marketing Analytics Analyst Name Role Phone Unavailable Primary Care Provider Unavailabl e Encounter Details Date Type Department Care Team (Late st Contact Info) Description 02/02/2015 Results Only [facility]- [facility] [phone] Nereida Sharif MD [address] [place] [phone] Social History Tobacco Use Types Packs/Day Years [...] Diagnosis Comments PAP TEST- RESULT ONLY Routine 02/02/2015 0:00 EDT documented in this encounter Results * PAP TEST- RESULT ONLY (02/02/2015 0:00 EDT) Pathology Report: CYTOPATHOLOGY REPORT Reports generated via electronic interface contain original data; however they are lacking the format of the original report. Caution should be taken when reading/interpreti ng unformatted reports. Name: ? DEV TINAJERO ? Accession #: ? [id number] ? : ? 1965 (Age: 49) ??F ?Collect Date: ? 02/02/2015 ? Location: ? [facility] ? Receive Date: ? 02/04/2015 ? Provider: NEREIDA SHARIF MD Copy to: ? Final Report SPECIMEN ADEQUACY ? Satisfactory for Evaluation - transformation zone component present GENERAL CATEGORIZATION ? Negative for Intraepithelial Lesion or Malignancy ?? Last Menstrual Period: 01/14/15 Specimen/Source: ??Pap Test, Cervix/Endocervix, ThinPrep Imaging System with manual evaluation Document reviewed and electronically signed by: ? Esteban Franco, JESSICA(ASCP) ? Report ??Date: 02/09/2015 13:02 HPV with Pap Test ? Date Ordered: ? 02/09/2015 ? Status: ?? Signed Out ?Date Complete: ? 02/11/2015 ? By: ??System Interface ? Date Reported: ? 02/11/2015 ? Interpretation RESULT: Negative for HPV. No E6 or E7 mRNA is detected from HPV types 16,18,31,33,35, 39,45,51,52,56,58, 59,66, and 68 by hospice team lead mediated amplification. Comments Document reviewed and electronically signed by: ? System Interface ? Report date: 02/11/2015 By the signature above, the attending physician certifies that he/she has personally conducted a gross and/or microscopic examination of the described specimens and rendered or confirmed the above diagnosis. End of Report [facility] 02/02/2015 02/04/2015 Nereida Sharif MD PATHOLOGY ORDERABLE S [facility] [address] [place] [address] documented in this encounter Visit Diagnoses Not on filedocumented in this encounter
--- OUTSIDE RECORDS SUMMARY | 2024-02-01 01:37 | XMS_ITS | Encounter Summary ---
Author Organization [facility] Address [address] [place] [address] Care Team Providers Care Process Coordinator Name Role Phone Unknown, Provider Primary Care Provider [phone] Encounter Details Date Type Department Care Team (Late st Contact Info) Description 07/22/2018 Results Only [facility] [phone] Miguel Galindo MD [facility] [address] [place], [place] [phone] Social History Tobacco Use Types Packs/Day Years Used Date Smoking Tobacco: Never Assessed Sex and Gender Information Value Date Recorded Sex Assigned at Not on file Gender Identity Not on file Sexual Orientation Not on file documented as of this encounter Plan of Treatment Not on file documented as of this encounter Procedures Procedure Name Priority Date/Time Associated Diagnosis Comments SURGICAL PATHOLOGY Routine 07/22/2018 19 :49 EST documented in this encounter Results * SURGICAL PATHOLOGY (07/22/2018 19:49 EST) Pathology Report: SURGICAL PATHOLOGY REPORT Reports generated via electronic interface contain original data; however they are lacking the format of the original report. Caution should be taken when reading/interpret ing unformatted reports. Name: ? DEV TINAJERO ? Accession #: ? [id number] ? : ? 1965 (Age: 52) ??F ? Collect Date: ? 07/22/2018 ? Location: ? [facility] ? Receive Date: ? 07/22/2018 ? Provider: MIGUEL GALINDO MD Copy to: MELISSA CHAMBERS MD ? Final Pathologic Diagnosis: COLON, CECUM, POLYP, BIOPSY: - Tubular adenoma. Document reviewed and electronically signed by: JOSE ANTONIO JESUS MD Report ??Date: 07/24/2018 11:40 By the signature above, the attending physician certifies that he/she has personally conducted a gross and/or microscopic examination of the described specimens and rendered or confirmed the above diagnosis. Specimen(s) Received: Cecal polyp Clinical History: Colorectal screening Gross Description: ? Received in formalin labelled with proper patient identification (initials Y, M) and cecal polyp is an aggregate of casas-brown tissue fragments (0.6 x 0.5 x 0.2 cm). Submitted in toto in 1. ROBIN Wallace (ASCP) 07/23/2018 8:54 AM End of Report [facility] 07/22/2018 19:4 9 EST 07/22/2018 19:49 EST Miguel Galindo MD PATHOLOGY ORDERA [facility] [address] [place] [address] documented in this encounter Visit Diagnoses Not on filedocumented in this encounter Care Teams Process Coordinator Relationship Specialty Start Date End Date Unknown, Provider, PCP - General 04/13/15 07/24/18 documented as of this encounter
--- OUTSIDE RECORDS SUMMARY | 2024-02-01 01:37 | XMS_ITS | Encounter Summary ---
Author Organization [facility] [place] [address] Care Team Providers Care Indoor Landscaper/Gardener Name Role Phone Unavailable Primary Care Provider Unavailabl e Encounter Details Date Type Department Care Team (Late st Contact Info) Description 10/01/2009 Ancillary Procedure [place] [address] Nereida Sharif MD [address] [place] [address] Social History Tobacco Use Types Packs/Day Years [...] 2:15 PM EDT Office [place] [address] Julee Ibarra APRN [facility] GASTROENTEROLOGY [place], [place] [phone] 02/15/2024 10:45 AM EDT Office [place] [address] Jian Carmichael MD [facility] [place] [address] 03/12/2024 8:00 AM EDT Appointment Mammography/[place] [phone] Ting George APRN [facility] [place] [place] [address] 03/12/2024 9:00 AM EDT Office [place] [phone] Ting George APRN [facility] [place] [address] documented as of this encounter Procedures Procedure Name Priority Date/Time Associated Diagnosis Comments FILM LIBRARY STORAGE ONLY MAMMO Routine 10/01/2009 12:00 AM EDT documented in this encounter Results * Film Library- Storage Only Mammo (10/01/2009 12:00 AM EDT) Narrative [facility] - 11/26/2018 11:51 AM EDT This exam is auto-finalizing. It's purpose is for storage only. Nereida Sharif MD IMG FILM LIBRARY ORD ERABLES [place], [place] documented in this encounter Visit Diagnoses Not on filedocumented in this encounter
--- OUTSIDE RECORDS SUMMARY | 2024-02-01 01:37 | XMS_ITS | Encounter Summary ---
[place] [address] Care Team Providers Care Watch Repairer Apprentice Name Role Phone Nereida Sharif MD Primary Care Provider [phone] Encounter Details Date Type Department Care Team (Late st Contact Info) Description 12/09/2018 Notes [place] [phone] Nettie Blount MD [facility] [place] [address] Social History Tobacco Use Types Packs/Day Years [...] Notes * Nettie Blount MD - 12/09/2018 12:46 PM EDT Pre-procedure note for needle breast biopsies performed in radiology. Procedure date: Today Procedure type: left breast ultrasound guided biopsy Allergies: Patient has no known allergies. [...] 2:15 PM EDT Office Visit Gastroenterology at [place] [address] Julee Ibarra [facility] [place] [address] 02/15/2024 10:45 AM EDT Office Visit General Surgery at [place] [address] Jian Carmichael MD [facility] [place] [address] 03/12/2024 8:00 AM EDT Appointment Mammography/DXA at [place] [address] Ting George, [facility] [place] [address] 03/12/2024 9:00 AM EDT Office Visit General Surgery at [place] [address] Ting George [facility] [place] [address] documented as of this encounter Visit Diagnoses Not on filedocumented in this encounter Care Teams Watch Repairer Apprentice Relationship Specialty Start Date End Date Nereida Sharif MD [address] [place] [address] PCP - General 04/26/10 documented as of this encounter
--- OUTSIDE RECORDS SUMMARY | 2024-02-01 01:37 | XMS_ITS | Encounter Summary ---
Author Organization [facility] Address [facility] 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 The pigment epithelial detachmentis perfectly stable and there is nothing to suggest a choroidal neovascular membrane or active leakage Patient is not on steroids and no other associated pathology is defined. Accordingly, I'm recommending observation. She will test each eye separately report promptly if there are any changes. In the recent past, I've had a patient with a very similar picture although somewhat worse. Patientis inclined any form of laser treatment but finally got better at about 2-1/2 years. Still however, patient should return immediately given the possible but remote risk of a choroidal neovascular membrane. Fortunately, no similar changes are seen in the left eye. Christiano documented in this encounter Plan of Treatment Upcoming Encounters Date Type Department Care Team (Late st Contact Info) Description 02/11/2024 2:15 PM EDT Office Visit Gastroenterology at [place] [phone] Julee Ibarra [facility] [place] [address] 02/15/2024 10:45 AM EDT Office Visit General Surgery at [place] [phone] Jian Carmichael MD [facility] [place] [address] 03/12/2024 8:00 AM EDT Appointment Mammography/[place] [address] Ting George PLANT OPERATIONS WORKER [facility] [place] [address] 03/12/2024 9:00 AM EDT Office Visit [place] [phone] Ting George PLANT OPERATIONS WORKER [facility] [place] [address] documented as of this encounter Procedures Procedure Name Priority Date/Time Associated Diagnosis Comments OCT RETINA - OD - RIGHT EYE Routine 08/06/2015 9:17 AM EST Central serous chorioretinopathy, right documented in this encounter Results * OCT [id number] EYE (08/06/2015 9:17 AM EST) Anatomical Region Laterality Modality Other Narrative 08/06/2015 9:17 AM EST This imaging studies indicated by virtue of the patient's central serous picture/pigment epithelial detachment. Markably, no change but also quite good is that no ??progression is identified. Christiano Meyer MD [facility] S [facility] ORDER[facility] documented in this encounter Visit Diagnoses Diagnosis Central serous chorioretinopathy, right- Primary documented in this encounter Care Teams Actuarial Technician Relationship Specialty Start Date End Date Nereida Sharif MD [address] [place] [address] PCP - General 04/26/10 documented as of this encounter
--- OUTSIDE RECORDS SUMMARY | 2024-02-01 01:37 | XMS_ITS | Clinical Summary ---
Author Organization [facility] Address [address] [place] [address] Care Team Providers Care Bus Repair Supervisor Name Role Phone Nereida Sharif MD Primary Care Provider [phone] Social History Tobacco Use Types Packs/Day Years Used Date Smoking Tobacco: Never Assessed Interpersonal Safety Answer Date Record ed Physically Hurt Never 01/04/2020 Verbally Threaten Not on file 01/04/2020 Sex and Gender Information Value Date Recorded Sex Assigned at Not on file Gender Identity Not on file Sexual Orientation Not on file Plan of Treatment Health Maintenance Due Date Last Done Comments Hepatitis C Screen 1965 Hepatitis B Vaccine (1 of 3 - 19+ 3-dose series) 10/16 COVID-19 Vaccine (2022-24 season) 2023 Care Teams Bus Repair Supervisor Relationship Specialty Start Date End Date Nereida Sharif MD PCP - General 07/25/18
--- OUTSIDE RECORDS SUMMARY | 2024-02-01 01:37 | XMS_ITS | Encounter Summary ---
Author Organization [facility] [place] [address] Care Team Providers Care Meter And Service Line Inspector Name Role Phone Nereida Sharif MD Primary Care Provider [phone] Encounter Details Date Type Department Care Team (Late st Contact Info) Description 05/01/2018 Ancillary Procedure [place] [phone] Nereida Sharif MD [address] [place] [address] Social History Tobacco Use Types [...] 2:15 PM EDT Office [place] [phone] Jluee Ibarra APRN [facility] [place] [address] 02/15/2024 10:45 AM EDT Office [place] [phone] Jian Carmichael MD [facility] [place] [place] [address] 03/12/2024 8:00 AM EDT Appointment Mammography/[place] [address] Ting George [facility] [address] 03/12/2024 9:00 AM EDT Office [place] [phone] Ting George [facility] [place] [address] documented as of this encounter Procedures Procedure Name Priority Date/Time Associated Diagnosis Comments FILM LIBRARY STORAGE ONLY MAMMO Routine 05/01/2018 12:00 AM EST documented in this encounter Results * Film Library- Storage Only Mammo (05/01/2018 12:00 AM EST) Narrative RAD - 11/26/2018 11:49 AM EDT This exam is auto-finalizing. It's purpose is for storage only. Nereida Sharif MD IMG FILM LIBRARY ORD ERABLES [place], [place] documented in this encounter Visit Diagnoses Not on filedocumented in this encounter Care Teams Meter And Service Line Inspector Relationship Specialty Start Date End Date Nereida Sharif MD [address] [place] [address] PCP - General 04/26/10 documented as of this encounter
--- OUTSIDE RECORDS SUMMARY | 2024-02-01 01:37 | XMS_ITS | Encounter Summary ---
Author Organization [facility] [place] [address] Care Team Providers Care Report Manager Name Role Phone Unavailable Primary Care Provider Unavailabl e Encounter Details Date Type Department Care Team (Late st Contact Info) Description 08/28/2008 Ancillary Procedure [place] [address] Nereida Sharif MD [address] [place] [address] Social History Tobacco Use Types Packs/Day Years [...] 2:15 PM EDT Office [place] [address] Julee Ibarra APRN [facility] GASTROENTEROLOGY [place], [place] [address] 02/15/2024 10:45 AM EDT Office [place] [address] Jian Carmichael MD [facility] [place] [address] 03/12/2024 8:00 AM EDT Appointment Mammography/[place] [phone] Ting George APRN [facility] [place] [address] 03/12/2024 9:00 AM EDT Office [place] [phone] Ting George APRN [facility] [place] [address] documented as of this encounter Procedures Procedure Name Priority Date/Time Associated Diagnosis Comments FILM LIBRARY STORAGE ONLY MAMMO Routine 08/28/2008 12:00 AM EDT documented in this encounter Results * Film Library- Storage Only Mammo (08/28/2008 12:00 AM EDT) Narrative [facility] - 11/26/2018 11:50 AM EDT This exam is auto-finalizing. It's purpose is for storage only. Nereida Sharif MD IMG FILM LIBRARY ORD ERABLES [place], [place] documented in this encounter Visit Diagnoses Not on filedocumented in this encounter
--- OUTSIDE RECORDS SUMMARY | 2024-02-01 01:37 | XMS_ITS | Encounter Summary ---
[place] [address] Care Team Providers Care Water Meter Installer Name Role Phone Nereida Sharif MD Primary Care Provider [phone] Encounter Details Date Type Department Care Team (Latest Contact Info) Description 12/09/2018 2:00 PM EDT - 12/09/2018 2:10 PM EDT Hospital En[place] [phone] Cris [place] MD [facility] [place] [address] Abnormal mammogram Discharge Disposition: Home Social History [...] EDT Office [place] [phone] Julee Ibarra, [facility] [place] [address] 02/15/2024 10:45 AM EDT Office [place] [phone] Jian Carmichael MD [facility] [place] [address] 03/12/2024 8:00 AM EDT Appointment Mammography/[place] [phone] Ting George, [facility] [place] [address] 03/12/2024 9:00 AM EDT Office [place] [address] Ting George, [facility] [place] [address] documented as of this encounter Procedures Procedure Name Priority Date/Time Associated Diagnosis Comments MAMMO BREAST US LIMITED LEFT Routine 12/09/2018 3:00 PM EDT Abnormal mammogram documented in this encounter Results * US Breast Limited Left (12/09/2018 3:00 PM EDT) Anatomical Region Laterality Modality Breast Left Mammography Impressions 12/11/2018 12:37 PM EDT Concordant [...] please contact the number below. ? Narrative 12/11/2018 12:37 PM EDT STEREOTACTIC GUIDED [...] core biopsy specimens were obtained using a [employer] Keyboard Eviva 9g device. Biopsy specimens were radiographed. ??The abnormality was present on the specimen digital radiograph. A AOTMPiva cylinder marker clip was placed. Cranio-caudal and [...] Cris Wilson MD IMG MAMMO ORDERABL ES documented in this encounter Visit Diagnoses Diagnosis Abnormal mammogram Abnormal mammogram, unspecified documented in this encounter Care Teams Water Meter Installer Relationship Specialty Start Date End Date Nereida Sharif MD [address] [facility] [address] [place] [address] PCP - General 04/26/10 documented as of this encounter
--- OUTSIDE RECORDS SUMMARY | 2024-02-01 01:37 | XMS_ITS | Encounter Summary ---
Author Organization [facility] [place] [address] Care Team Providers Care Rotary Pump Operator Name Role Phone Nereida Sharif MD Primary Care Provider [phone] Encounter Details Date Type Department Care Team (Late st Contact Info) Description 11/26/2018 3:55 PM EDT Ancillary Procedure [place] [phone] Nereida Sharif MD [address] [place] [address] Breast density Social History Tobacco Use Types Packs/Day Years [...] 2:15 PM EDT Office [place] [phone] Julee Ibarra APRN [facility] GASTROENTEROLOGY [place], [place] [phone] 02/15/2024 10:45 AM EDT Office Visit General Surgery at [place] [phone] Jian Carmichael MD [facility] [place] [address] 03/12/2024 8:00 AM EDT Appointment Mammography/DXA at [place] [phone] Ting George APRN [facility] [place] [address] 03/12/2024 9:00 AM EDT Office [place] [address] Ting George [facility] [place] [address] documented as of this encounter Procedures Procedure Name Priority Date/Time Associated Diagnosis Comments REQUEST FOR 2ND READ MAMMO Routine 11/26/2018 3:43 PM EDT Breast density documented in this encounter Results * Request for 2nd read Mammo (11/26/2018 3:43 PM EDT) Anatomical Region Laterality Modality SO Impressions 11/27/2018 1:55 PM EDT Highly suspicious mammographic lesion which most likely has a suspicious sonographic correlate though the images provided only depict a simple cyst measuring 2.3 cm. RECOMMENDATION: Repeat directed ultrasound of the left breast 1:00 radian middle third with follow-up ultrasound guided core biopsy. Our facility will coordinate this follow-up. Left breast BI-RADS Category 4: Suspicious Finding - Biopsy Should Be Considered Please note: The interpretation of the [facility] Breast Imaging Radiologist subspecialist may differ from the original radiologist's interpretation. This is usually not due to a deficiency of the original interpreting radiologist, rather due to the greater skill level afforded by sub-specialization in the field and/or reasonable variations in interpretations. If you have a concern regarding the D-H interpretation you may contact the [facility] Breast Automobile Radio Repairer Office at . Thank you for letting us participate in the care of this patient. For questions regarding this report, please contact the number below. ? Narrative 11/27/2018 1:55 PM EDT INTERPRETATION OF OUTSIDE BREAST IMAGING I have been asked to consult on this patient by Dr. Nereida Sharif ??because he/she believes a review of this study may change or alter the care of this patient. STUDIES FROM: [facility] DATES: 11/22/2018 left breast mammogram and ultrasound CLINICAL HISTORY: L BREAST DENSITY , CAT 4, PATIENT WOULD LIKE TO BE SEEN @ [facility] [place]; BX MORE IMAGING ; What Modality is the exam? Mammography; Body Part (please add comments as necessary): BREAST ; I believe a reinterpretation of this exam may alter care of Patient. Yes. ?? COMPARISONS: 05/15/2018, 05/01/2018, 12/20/2012, 12/10/2009, 10/01/2009, 08/28/2008, 04/08/2007 FINDINGS: Synthetic 2-D and 3-D timothy images of the left breast are submitted from 11/22/2018 including spot compression CC and spot compression MLO views of the left breast. There are static images submitted from a left breast ultrasound. Please note: Breast ultrasound is basket machine operator dependent. Complete assessment of the breast tissue is not possible through static images or cine loops. Because breast ultrasound is a dynamic process the interpretive value of outside images is limited. The breasts are extremely dense, which lowers the sensitivity of mammography. There is a 1 cm suspicious area of architectural distortion in the upper slightly outer quadrant 1:00 radian of the left breast middle third 4 cm from the nipple. This is seen on the timothy images only. Left breast ultrasound: Static images are provided which do not appear to correspond to the mammographic finding. In fact there is a simple cyst at the left 1:30 radian 6 cm from the nipple measuring 2.3 cm. By report, however, a 1 cm irregular hypoechoic lesion was identified. Procedure Note Cris Wilson MD - 11/27/2018 INTERPRETATION OF OUTSIDE BREAST IMAGING I have been asked to consult on this patient by Dr. Nereida Niñoause he/she believes a review of this study may change or alter the care ofthis patient. STUDIES FROM: [facility] DATES: 11/22/2018 left breast mammogram and ultrasound CLINICAL HISTORY: L BREAST DENSITY , CAT 4, PATIENT WOULD LIKE TO BE SEEN@ [facility] [place]; BX MORE IMAGING ; What Modality is the exam? Mammography; BodyPart (please add comments as necessary): BREAST ; I believe a reinterpretationof this exam may alter care of Patient. Yes. COMPARISONS: 05/15/2018, 05/01/2018, 12/20/2012, 12/10/2009, 10/01/2009, 08/28/2008,04/08/2007 FINDINGS: Synthetic 2-D and 3-D timothy images of the left breast are submitted from 11/22/2018 including spot compression CC and spot compression MLO views ofthe left breast. There are static images submitted from a left breastultrasound. Please note: Breast ultrasound is basket machine operator dependent. Complete assessmentof the breast tissue is not possible through static images or cine loops.Because breast ultrasound is a dynamic process the interpretive value of outsideimages is limited. The breasts are extremely dense, which lowers the sensitivity ofmammography. There is a 1 cm suspicious area of architectural distortion in the upper slightly outer quadrant 1:00 radian of the left breast middle third 4 cmfrom the nipple. This is seen on the timothy images only. Left breast ultrasound: Static images are provided which do not appearto correspond to the mammographic finding. In fact there is a simple cyst atthe left 1:30 radian 6 cm from the nipple measuring 2.3 cm. By report,however, a 1 cm irregular hypoechoic lesion was identified. IMPRESSION Highly suspicious mammographic lesion which most likely has a suspicious sonographic correlate though the images provided only depict a simplecyst measuring 2.3 cm. RECOMMENDATION: Repeat directed ultrasound of the left breast 1:00 radian middle thirdwith follow-up ultrasound guided core biopsy. Our facility will coordinatethis follow-up. Left breast BI-RADS Category 4: Suspicious Finding - Biopsy Should BeConsidered Please note: The interpretation of the [facility] BreastImaging Radiologist subspecialist may differ from the original radiologist's interpretation. This is usually not due to a deficiency of the original interpreting radiologist, rather due to the greater skill level affordedby sub-specialization in the field and/or reasonable variations ininterpretations. If you have a concern regarding the D[facility]H interpretation [facility] Breast Autom[facility] Radio Repairer Office at . Thank you for letting us participate in the care of this patient. Forquestions regarding this report, please contact the number below. Nereida Sharif MD IMG OUTSIDE INTERPRE TATION ORDERABLES documented in this encounter Visit Diagnoses Diagnosis Breast density Other sign and symptom in breast documented in this encounter Care Teams Rotary Pump Operator Relationship Specialty Start Date End Date Nereida Sharif MD [address] [place] [address] [address] PCP - General 04/26/10 documented as of this encounter
--- OUTSIDE RECORDS SUMMARY | 2024-02-01 01:37 | XMS_ITS | Encounter Summary ---
Author Organization [facility] [place] [address] Care Team Providers Care Heel Seat Filler Name Role Phone Nereida Sharif MD Primary Care Provider [phone] Encounter Details Date Type Department Care Team (Late st Contact Info) Description 12/20/2012 Ancillary Procedure [place] [address] Nereida Sharif MD [address] [place], [place] [phone] Social History Tobacco Use Types Packs/Day Years [...] 2:15 PM EDT Office [place] [address] Julee Ibarra APRN [facility] GASTROENTEROLOGY [place], [place] [phone] 02/15/2024 10:45 AM EDT Office [place] [address] Jian Carmichael MD [facility] [place] [address] 03/12/2024 8:00 AM EDT Appointment Mammography/[place] [phone] Ting George, TRACK REPAIRER [facility] [place] [address] 03/12/2024 9:00 AM EDT Office [place] [phone] Ting George, [facility] [place] [address] documented as of this encounter Procedures Procedure Name Priority Date/Time Associated Diagnosis Comments FILM LIBRARY STORAGE ONLY MAMMO Routine 12/20/2012 12:00 AM EDT documented in this encounter Results * Film Library- Storage Only Mammo (12/20/2012 12:00 AM EDT) Narrative [facility] - 11/26/2018 11:52 AM EDT This exam is auto-finalizing. It's purpose is for storage only. Nereida Sharif MD G FILM LIBRARY ORD ERABLES [place], [place] documented in this encounter Visit Diagnoses Not on filedocumented in this encounter Care Teams Heel Seat Filler Relationship Specialty Start Date End Date Nereida Sharif MD [address] [facility] [place] [address] PCP - General 04/26/10 documented as of this encounter
--- OUTSIDE RECORDS SUMMARY | 2024-02-01 01:37 | XMS_ITS | Encounter Summary ---
Author Organization [facility] [place] [address] Care Team Providers Care City Manager Name Role Phone Nereida Sharif MD Primary Care Provider [phone] Encounter Details Date Type Department Care Team (Late st Contact Info) Description 05/15/2018 12:05 AM EST Ancillary Procedure [place] [phone] Nereida Sharif MD [address] [place] [address] Social History Tobacco Use Types [...] 2:15 PM EDT Office [place] [phone] Julee Ibarra APRN [facility] [place] [address] 02/15/2024 10:45 AM EDT Office [place] [address] Jian Carmichael MD [facility] [place] [place] [address] 03/12/2024 8:00 AM EDT Appointment Mammography/DXA at [place] [phone] Ting George [facility] [place] [address] 03/12/2024 9:00 AM EDT Office [place] [address] Ting George [facility] SUR[facility] [place], [place] [phone] documented as of this encounter Procedures Procedure Name Priority Date/Time Associated Diagnosis Comments FILM LIBRARY-STORAGE ONLY US BREAST Routine 05/15/2018 12:05 AM EST documented in this encounter Results * Film Library Storage Only US Breast (05/15/2018 12:05 AM EST) Narrative RAD - 11/26/2018 11:50 AM EDT This exam is auto-finalizing. It's purpose is for storage only. Nereida Sharif MD IMG FILM LIBRARY ORD ERABLES [place], [place] documented in this encounter Visit Diagnoses Not on filedocumented in this encounter Care Teams City Manager Relationship Specialty Start Date End Date Nereida Sharif MD [address] [place] [address] PCP - General 04/26/10 documented as of this encounter
--- OUTSIDE RECORDS SUMMARY | 2024-02-01 01:37 | XMS_ITS | Encounter Summary ---
Author Organization [facility] [place] [address] Care Team Providers Care House Father Name Role Phone Nereida Sharif MD Primary Care Provider [phone] Encounter Details Date Type Department Care Team (Late st Contact Info) Description 11/22/2018 12:05 AM EDT Ancillary [place] [phone] Nereida Sharif MD [address] [place] [address] Social History Tobacco Use Types [...] 2:15 PM EDT Office [place] [phone] Julee Ibarra APRN [facility] [place] [address] 02/15/2024 10:45 AM EDT Office [place] [address] Jian Carmichael MD [facility] [place] [address] 03/12/2024 8:00 AM EDT Appointment Mammography/DXA at [place] [phone] Ting George [facility] [place] [address] 03/12/2024 9:00 AM EDT Office Visit General Surgery at [place] [phone] Ting George [facility] [address] documented as of this encounter Procedures Procedure Name Priority Date/Time Associated Diagnosis Comments FILM LIBRARY-STORAGE ONLY US BREAST Routine 11/22/2018 12:05 AM EDT documented in this encounter Results * Film Library Storage Only US Breast (11/22/2018 12:05 AM EDT) Narrative RAD - 11/26/2018 11:50 AM EDT This exam is auto-finalizing. It's purpose is for storage only. Nereida Sharif MD IMG FILM LIBRARY ORD ERABLES [place], [place] documented in this encounter Visit Diagnoses Not on filedocumented in this encounter Care Teams House Father Relationship Specialty Start Date End Date Nereida Sharif MD [address] [place] [address] PCP - General 04/26/10 documented as of this encounter
--- OUTSIDE RECORDS SUMMARY | 2024-02-01 01:37 | XMS_ITS | Encounter Summary ---
Author Organization [facility] Address [facility] [place] [address] Care Team Providers Care Brine Purifier Name Role Phone Nereida Sharif MD Primary Care Provider [phone] Reason for Visit * Reason Comments Central Serous Retinopathy Encounter Details Date Type Department Care Team (Late st Contact Info) Description 06/22/2017 8:00 AM EST Office [place] [address] Gaby Martinez MD [facility] [place] [address] VALIDATION ENGINEER (central serous retinopathy), right Social History Tobacco Use Types Packs/Day [...] as of this encounter Progress Notes * Gaby Martinez MD - 06/22/2017 8:00 AM EST 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 No evidence of cnvm. No drusen. OS: normal. No risk factors. Imp: Discussed potential for cnvm/metamorphopsia. No Rx recommended now. Plan; baseline OCT (unchanged since last time) and photos. RTC 6 months. documented in this encounter Plan of Treatment Upcoming Encounters Date Type Department Care Team (Late st Contact Info) Description 02/11/2024 2:15 PM EDT Office Visit [place] [address] Julee Ibarra, [facility] [place] [address] 02/15/2024 10:45 AM EDT Office Visit [place] [address] Jian Carmichael MD [facility] [place] [address] 03/12/2024 8:00 AM EDT Appointment Mammography/[place] [address] Ting George, [facility] [place] [address] 03/12/2024 9:00 AM EDT Office Visit [place] [phone] Ting George, [facility] [place] [place] [address] documented as of this encounter Procedures Procedure Name Priority Date/Time Associated Diagnosis Comments OCT RETINA - OU - BOTH EYES Routine 06/22/2017 9:05 AM EST VALIDATION ENGINEER (central serous retinopathy), right FUNDUS PHOTOS - OU- BOTH EYES Routine 06/22/2017 9:04 AM EST VALIDATION ENGINEER (central serous retinopathy), right documented in this encounter Results * OCT Mqzzek-PG-EVIX EYES (06/22/2017 9:05 AM EST) Anatomical Region Laterality Modality Other Narrative 06/22/2017 9:05 AM EST OD: small rpe detachment adjacent to fovea with no associated subretinal fluid. ??OS: normal Gaby Martinez MD OPHTHALMOLOGY SERV ICES ORDERABLES * FUNDUS PHOTOS - OU- BOTH EYES (06/22/2017 9:04 AM EST) Anatomical Region Laterality Modality Other Narrative 06/22/2017 9:04 AM EST Normal OU with the exception of a 1/3 DD rpe detachment adjacent to VÍCTOR OD. Gaby Martinez MD OPHTHALMOLOGY SERV [employer] ORDERABLES documented in this encounter Visit Diagnoses Diagnosis VALIDATION ENGINEER (central serous retinopathy), right documented in this encounter Care Teams Brine Purifier Relationship Specialty Start Date End Date Nereida Sharif MD [address] [place] [address] [address] [place] [address] PCP - General 04/26/10 documented as of this encounter
--- OUTSIDE RECORDS SUMMARY | 2024-02-01 01:37 | XMS_ITS | Encounter Summary ---
Author Organization [facility] Address [address] [place] [address] Care Team Providers Care Painting Technician Name Role Phone Nereida Sharif MD Primary Care Provider [phone] Encounter Details Date Type Department Care Team (Late st Contact Info) Description 09/12/2023 Lab Requisition [facility] Pathology & Laboratory Medicine - [address] [address] Nereida Sharif MD [address] [place] [phone] Encounter for other general examination Social History Tobacco Use Types Packs/Day Years [...] Name Priority Date/Time Associated Diagnosis Comments PAP TEST Today 09/11/2023 8:30 EDT Encounter for other general examination HPV DNA DETECTION WITH GENOTYPING, PCR Today 09/11/2023 8:30 EDT Encounter for other general examination documented in this encounter Results * HUMAN PAPILLOMAVIRUS (HPV) DETECTION-HIGH RISK TYPES (09/11/2023 8:30 EDT) HPV other High Risk types, PCR Negative Negative 09/18/2023 16:09 EDT [facility] Comment:No E6 or E7 mRNA is detected from HPV types 16,18,31,33,35,39,45,51,52,56,58,59,66, and 68 by hourly associate mediated amplification. Pap Test CERVIX UTERI STRUCTURE / Unknown 09/11/2023 8:30 EDT 09/17/2023 14:34 EDT Nereida Sharif MD MICROBIOLOGY - GENE RAL ORDERABLES [facility] [address] [place] [address] * PAP TEST (09/11/2023 8:30 EDT) Specimens A. Cervix and/or Endocervix , ThinPrep Imaging System with Manual Evaluation 09/18/2023 16:09 [facility] Specimen Adequacy Satisfactory for Evaluation - transformation zone component present 09/18/2023 16:09 [facility] General Categorization Negative for intraepithelial lesion or malignancy 09/18/2023 16:09 [facility] Descriptive Diagnosis Reactive cellular changes associated with inflammation present (includes repair). 09/18/2023 16:09 [facility] Attestation By the signature below, the attending physician certifies that they have personally conducted a gross and/or microscopic examination of the described specimens and rendered or confirmed the above diagnosis. 09/18/2023 16:09 [facility] at 1609 Clinical History See below 09/18/19 24 16:09 [facility] HPV The result for the Human Papillomavirus (HPV) Detection-High Risk Types is Negative. No E6 or E7 mRNA is detected from HPV types 16,18,31,33,35,39 ,45,51,52,56,58,5 9,66, and 68 by hourly associate mediated amplification.Ruth ting was performed on specimen [id number] and was resulted on 09/18/2023 1609 EDT by DANISH, LAB INSTRUMENT RESULTS IN 09/18/2023 16:09 EDT [facility] Performing Lab [facility] 09/18/2023 16:09 EDT [facility] Scanned Images 09/18/2023 16:09 EDT [facility] Pap Test CERVIX UTERI STRUCTURE / Unknown 09/11/2023 8:30 EDT 09/12/2023 9:09 EDT Nereida Sharif MD PATHOLOGY ORDERABLE S [facility] [address] [place] [address] documented in this encounter Visit Diagnoses Diagnosis Encounter for other general examination documented in this encounter Care Teams Painting Technician Relationship Specialty Start Date End Date Nereida Sharif MD PCP - General 07/25/18 documented as of this encounter
--- OUTSIDE RECORDS SUMMARY | 2024-02-01 01:37 | XMS_ITS | Encounter Summary ---
Author Organization [facility] Address [facility] [place] [address] Care Team Providers Care Intercell Connector Placer Name Role Phone Nereida Sharif MD Primary Care Provider [phone] Reason for Visit * Reason Comments Central Serous Retinopathy Encounter Details Date Type Department Care Team (Late st Contact Info) Description 11/03/2016 8:15 AM EDT [place] [address] Christiano Meyer MD [facility] DR OPHTHALM[place]Y 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 Combined clinical examination and imaging reveals no progression. The pigment epithelial detachmentis perfectly stable and there is nothing to suggest a choroidal neovascular membrane or active leakage ? Patient is not on steroids and no other associated pathology is defined. Accordingly, I'm recommending continued observation. She will test each eye separately report promptly if there are any changes. ?? 6 months dilated exam and OCT Patient instructed to call immediately if any new challenges documented in this encounter Plan of Treatment Upcoming Encounters Date Type Department Care Team (Late st Contact Info) Description 02/11/2024 2:15 PM EDT Office Visit Gastroenterology at [place] [phone] Julee Ibarra [facility] [place] [address] 02/15/2024 10:45 AM EDT Office Visit General Surgery at [place] [phone] Jian Carmichael MD [facility] [place] [address] 03/12/2024 8:00 AM EDT Appointment Mammography[place] [address] Ting George [facility] [place] [address] 03/12/2024 9:00 AM EDT Office [place] [phone] Ting George [facility] [place] [address] documented as of this encounter Procedures Procedure Name Priority Date/Time Associated Diagnosis Comments OCT RETINA - OU - BOTH EYES Routine 11/03/2016 9:08 AM EDT ACCOUNTS PAYABLE MANAGER (central serous retinopathy), right documented in this encounter Results * OCT [id number] EYES (11/03/2016 9:08 AM EDT) Anatomical Region Laterality Modality Other Narrative 11/03/2016 9:08 AM EDT This imaging studies indicated by virtue of the patient's central serous chorioretinopathy and persistent pigment epithelial detachment right eye. No signs of any exudation or pathology left eye. Overall unchanged right eye. Christiano Meyer M.D. Christiano Meyer MD OPHTHALMOLOGY S [facility] ORDERABLES documented in this encounter Visit Diagnoses Diagnosis ACCOUNTS PAYABLE MANAGER (central serous retinopathy), right- Primary documented in this encounter Care Teams Intercell Connector Placer Relationship Specialty Start Date End Date Nereida Sharif MD [address] [place] [address] PCP - General 04/26/10 documented as of this encounter
--- OUTSIDE RECORDS SUMMARY | 2024-02-01 01:37 | XMS_ITS | Encounter Summary ---
[facility] [place] [address] Care Team Providers Care Water Plant Pump Operator Supervisor Name Role Phone Nereida Sharif MD Primary Care Provider [phone] Encounter Details Date Type Department Care Team (Late st Contact Info) Description 05/09/2013 Abstract [place] [id number] Christiano Meyer MD [facility] [place] [address] Social History Tobacco Use Types Packs/Day Years [...] 2:15 PM EDT Office Visit [place] [phone] Julee Ibarra APRN [facility] [place] [address] 02/15/2024 10:45 AM EDT Office Visit [place] [address] Jian Carmichael MD [facility] [place] [address] 03/12/2024 8:00 AM EDT Appointment Mammography/[place] [address] Ting George, [facility] [place] [address] 03/12/2024 9:00 AM EDT Office [place] [address] Ting George, [facility] [place] [address] documented as of this encounter Visit Diagnoses Not on filedocumented in this encounter Care Teams Water Plant Pump Operator Supervisor Relationship Specialty Start Date End Date Nereida Sharif MD [address] [place] [address] PCP - General 04/26/10 documented as of this encounter
--- OUTSIDE RECORDS SUMMARY | 2024-02-01 01:37 | XMS_ITS | Encounter Summary ---
Author Organization [facility] Address [address] [place] [address] Care Team Providers Care Product Craftsman Name Role Phone Nereida Sharif MD Primary Care Provider [phone] Encounter Details Date Type Department Care Team (Late st Contact Info) Description 11/25/2019 Lab Requisition [facility] Pathology & Laboratory Medicine - [address] [address] Outr Resulting Lab, Provider Social History Tobacco [...] Procedure Name Priority Date/Time Associated Diagnosis Comments ZZCOVID-19 TEST [facility] LAB PCR Today 11/25/2019 8:00 EDT COVID-19 TESTING Routine 11/25/2019 8:00 EDT documented in this encounter Results * COVID-19 TEST [facility] LAB PCR (11/25/2019 8:00 EDT) Swab ENTIRE NASOPHARYNX / Unknown 11/25/2019 8:00 EDT 11/25/2019 21:12 EDT Provider Outr Resulting Lab MICROBIOLOGY - GENERAL ORDERABLES [facility] [address] [place] [address] * COVID-19 TESTING (11/25/2019 8:00 EDT) COVID-19 rt-PCR Result Negative Negative 11/26/2019 2:47 EDT [facility] Comment: This test has not been FDA cleared or approved. This test has been authorized by FDA under an EUA for use by authorized laboratories. This test has been authorized only for detection of nucleic acid from 2019-nCoV, not for any other viruses or pathogens. This test is only authorized for the duration of the declaration that circumstances exist justifying the authorization of emergency use of in vitro diagnostic tests for detection and/or diagnosis of 2019-nCoV under section 564(b)(1) of Act, 21 U.S.C ?? 360bbb-3(b) (1), unless the authorization is terminated or revoked sooner. Negative results do not preclude 2019-nCoV infection and should not be used as the sole basis for treatment or other patient management decisions. Negative results must be combined with clinical observations, patient history, and epidemiological information. Performed on the Reach Prosher Fusion instrument Performing Lab [facility] Lab 11/26/2019 2:47 EDT [facility] Swab 11/25/2019 8:00 EDT 11/25/2019 21:12 EDT Provider Outr Resulting Lab MICROBIOLOGY - GENERAL ORDERABLES [facility] [address] [place] [address] documented in this encounter Visit Diagnoses Not on filedocumented in this encounter Care Teams Product Craftsman Relationship Specialty Start Date End Date Nereida Sharif MD PCP - General 07/25/18 documented as of this encounter
--- OUTSIDE RECORDS SUMMARY | 2024-02-01 01:37 | XMS_ITS | Encounter Summary ---
Author Organization [facility] [place] [address] Care Team Providers Care Machine Pan Greaser Name Role Phone Unavailable Primary Care Provider Unavailabl e Encounter Details Date Type Department Care Team (Late st Contact Info) Description 12/10/2009 Ancillary Procedure [place] [address] Nereida Sharif MD [address] [place] [address] Social History Tobacco Use Types Packs/Day Years [...] 2:15 PM EDT Office Visit [place] [address] Julee Ibarra APRN [facility] GASTROENTEROLOGY [place], [place] [id number] 02/15/2024 10:45 AM EDT Office [place] [address] Jian Carmichael MD [facility] [place] [address] 03/12/2024 8:00 AM EDT Appointment Mammography/[place] [phone] Ting George APRN [facility] [place] [address] 03/12/2024 9:00 AM EDT Office Visit [place] [phone] Ting George APRN [facility] [place] [address] documented as of this encounter Procedures Procedure Name Priority Date/Time Associated Diagnosis Comments FILM LIBRARY-STORAGE ONLY US BREAST Routine 12/10/2009 12:00 AM EDT documented in this encounter Results * Film Library Storage Only US Breast (12/10/2009 12:00 AM EDT) Narrative [facility] - 11/26/2018 11:51 AM EDT This exam is auto-finalizing. It's purpose is for storage only. Nereida Sharif MD IMG FILM LIBRARY ORD ERABLES [place], [place] documented in this encounter Visit Diagnoses Not on filedocumented in this encounter
--- OUTSIDE RECORDS SUMMARY | 2024-02-01 01:37 | XMS_ITS | Referral Summary ---
Author Organization [facility] Address [address] [place] [address] Care Team Providers Care Psych Np Name Role Phone Nereida Sharif MD Primary Care Provider [phone] Social History Tobacco Use Types Packs/Day Years Used Date Smoking Tobacco: Never Assessed Interpersonal Safety Answer Date Record ed Physically Hurt Never 01/04/2020 Verbally Threaten Not on file 01/04/2020 Sex and Gender Information Value Date Recorded Sex Assigned at Not on file Gender Identity Not on file Sexual Orientation Not on file Plan of Treatment Not on file Care Teams Psych Np Relationship Specialty Start Date End Date Nereida Sharif MD PCP - General 07/25/18
[2024-02-01 08:16] LABS: ALT 64 U/L (14-59); AST 32 U/L (15-37); Alkaline Phosphatase 131 U/L (46-116); Anion Gap 6.3 mmol/L (3-11); BUN 27 mg/dL (7-18); Bilirubin, Total 0.43 mg/dL (0.2-1.0); CO2 35.7 mmol/L (21.0-32.0); CREATININE 0.8 mg/dL (0.55-1.02); Calcium 9.7 mg/dL (8.5-10.1); Chloride 100 mmol/L (98-107); Estimated GFR 86.42 (mL/min/1.73m2); Glucose 119 mg/dL (74-106); Sodium 142 mmol/L (136-145)
[2024-02-01 08:25] LABS: Potassium 2.6 mmol/L (3.5-5.1)
== END 2024-02-01 01:34 | disposition home or self-care (01) ==
PROVIDERS: PCP Family Medicine; Visit Provider Family Medicine
DX: I10 Essential (primary) hypertension (principal); R94.5 Abnormal results of liver function studies; K80.20 Calculus of gallbladder without cholecystitis without obstruction
CPT/HCPCS: 36415; 80053

== ENCOUNTER 2024-02-15 01:16 | Outpatient (CLI) | payer BC, SELFPAY ==
[2024-02-15 08:01] LABS: Hemoglobin A1C 5.3 % (<5.7)
[2024-02-15 08:17] LABS: ALT 61 U/L (14-59); AST 35 U/L (15-37); Albumin 3.8 g/dL (3.4-5.0); Alkaline Phosphatase 130 U/L (46-116); Anion Gap 5.5 mmol/L (3-11); BUN 20 mg/dL (7-18); Bilirubin, Total 0.63 mg/dL (0.2-1.0); CO2 35.5 mmol/L (21.0-32.0); CREATININE 0.8 mg/dL (0.55-1.02); Calcium 9.6 mg/dL (8.5-10.1); Chloride 98 mmol/L (98-107); Estimated GFR 86.42 (mL/min/1.73m2); Glucose 86 mg/dL (74-106); Potassium 3.7 mmol/L (3.5-5.1); Sodium 139 mmol/L (136-145); Total Protein 7.9 g/dL (6.4-8.2)
== END 2024-02-15 01:17 | disposition home or self-care (01) ==
LOC: LBO 01:16
PROVIDERS: PCP Family Medicine; Visit Provider Family Medicine
DX: E11.9 Type 2 diabetes mellitus without complications (principal); I10 Essential (primary) hypertension
CPT/HCPCS: 36415; 80053; 83036

== ENCOUNTER 2024-08-08 00:52 | Outpatient (CLI) | payer OTHER, SELFPAY ==
[2024-08-08 08:02] LABS: ALT 62 U/L (14-59); AST 38 U/L (15-37); Albumin 3.9 g/dL (3.4-5.0); Alkaline Phosphatase 137 U/L (46-116); Anion Gap 4.2 mmol/L (3-11); BUN 28 mg/dL (7-18); Bilirubin, Total 0.5 mg/dL (0.2-1.0); CO2 34.8 mmol/L (21.0-32.0); Calcium 9.7 mg/dL (8.5-10.1); Chloride 103 mmol/L (98-107); Estimated GFR 66.12 (mL/min/1.73m2); Glucose 96 mg/dL (74-106); Potassium 3.8 mmol/L (3.5-5.1); Sodium 142 mmol/L (136-145); Total Protein 8.2 g/dL (6.4-8.2)
== END 2024-08-08 00:53 | disposition home or self-care (01) ==
PROVIDERS: PCP Family Medicine; Visit Provider Family Medicine
DX: I10 Essential (primary) hypertension (principal)
CPT/HCPCS: 36415; 80053

== ENCOUNTER 2025-01-08 04:36 | Outpatient (CLI) | payer OTHER, SELFPAY ==
[2025-01-08 08:11] LABS: ALT 42 U/L (14-59); AST 23 U/L (15-37); Albumin 3.9 g/dL (3.4-5.0); Alkaline Phosphatase 103 U/L (46-116); Anion Gap 3.8 mmol/L (3-11); BUN 22 mg/dL (7-18); Bilirubin, Total 0.6 mg/dL (0.2-1.0); CO2 35.2 mmol/L (21.0-32.0); Calcium 9.5 mg/dL (8.5-10.1); Calculated LDL 160 mg/dL (<100); Chloride 99 mmol/L (98-107); Cholesterol 256 mg/dL (<200); Estimated GFR 104.63 (mL/min/1.73m2); Glucose 100 mg/dL (74-106); HDL Cholesterol 84 mg/dL (>or=50); Potassium 3.3 mmol/L (3.5-5.1); Sodium 138 mmol/L (136-145); Total Protein 7.7 g/dL (6.4-8.2); Triglyceride 61 mg/dL (<150)
== END 2025-01-08 04:37 | disposition home or self-care (01) ==
LOC: LBO 04:36
PROVIDERS: PCP Family Medicine; Visit Provider Family Medicine
DX: I10 Essential (primary) hypertension (principal); K76.0 Fatty (change of) liver, not elsewhere classified; R94.5 Abnormal results of liver function studies
CPT/HCPCS: 36415; 80053; 80061